=== PATIENT | female | born 1940 | race Caucasian/White ===

== ENCOUNTER → 2022-03-01 17:10 | Outpatient (BNVA) | payer MEDICARE, OTHER, SELFPAY | PROVIDERS: Visit Provider Emergency Medicine | DX: J02.9 Acute pharyngitis, unspecified (principal) | CPT/HCPCS: 87071; 87880 ==

== ENCOUNTER → 2023-05-02 09:37 | Outpatient (BNVA) | payer MEDICARE, OTHER, SELFPAY | PROVIDERS: PCP Family Medicine; Visit Provider Emergency Medicine | DX: R39.9 Unspecified symptoms and signs involving the genitourinary system (principal); N30.01 Acute cystitis with hematuria | CPT/HCPCS: 81000; 87077; 87086; 87184 ==

== ENCOUNTER 2024-10-15 17:24 | Emergency (ER) | payer MEDICARE, OTHER, SELFPAY ==
[2024-10-15 17:26] VITALS: BP 131/89; PULSE 77; RESP 18; TEMP 36.4; O2SAT 97; BMI 29.2
--- NOTE | 2024-10-15 17:27 | CTR_ITS ---
PROCEDURE INFORMATION: Exam: CT Maxillofacial Without Contrast Exam date and time: 10/15/2024 5:35 PM Age: 84 years old Clinical indication: Injury or trauma; Fall; Blunt trauma (contusions or hematomas); Orbit/periorbital; Right; Additional info: Trauamatic facial pain TECHNIQUE: Imaging protocol: Computed tomography of the face without contrast. Radiation optimization: All CT scans at this facility use at least one of these dose optimization techniques: automated exposure control; mA and/or kV adjustment per patient size (includes targeted exams where dose is matched to clinical indication); or iterative reconstruction. COMPARISON: CT head wo con* [id number] 10/15/2024 5:35 PM RADIATION DOSE METRICS: Total DLP (mGy-cm): 542.8 FINDINGS: Paranasal sinuses: No air-fluid levels. Orbital cavities: Orbits are normal. Globes are unremarkable. Bones: No acute fracture. Soft tissues: Right periorbital soft tissue swelling. There is a tiny amount of subcutaneous emphysema involving the right frontal scalp. CT/CT facial bones wo con* [id number] IMPRESSION: 1. Negative exam for facial fracture. 2. Right periorbital soft tissue swelling/laceration.
--- NOTE | 2024-10-15 17:27 | XRR_ITS ---
PROCEDURE INFORMATION: Exam: XR Right Hand Exam date and time: 10/15/2024 6:01 PM Age: 84 years old Clinical indication: Right; RT hand pain; Open wound to posterior RT elbow post fall; Large hematoma TECHNIQUE: Imaging protocol: Radiologic exam of the right hand. Views: 3 or more views. COMPARISON: CR XR elbow RT min 3V* [id number] 10/15/2024 6:01 PM FINDINGS: Bones/joints: Interphalangeal and 1st carpometacarpal degenerative changes are noted. No findings of fracture or dislocation. Soft tissues: Normal. XR/XR hand RT min 3V* [id number] IMPRESSION: No acute findings.
--- NOTE | 2024-10-15 17:27 | CTR_ITS ---
PROCEDURE INFORMATION: Exam: CT Cervical Spine Without Contrast Exam date and time: 10/15/2024 5:35 PM Age: 84 years old Clinical indication: Injury or trauma; Fall; Blunt trauma; Additional info: Fall, neck pain TECHNIQUE: Imaging protocol: Computed tomography of the cervical spine without contrast. Radiation optimization: All CT scans at this facility use at least one of these dose optimization techniques: automated exposure control; mA and/or kV adjustment per patient size (includes targeted exams where dose is matched to clinical indication); or iterative reconstruction. COMPARISON: CT facial bones wo con* [id number] 10/15/2024 5:35 PM RADIATION DOSE METRICS: Total DLP (mGy-cm): 172.2 FINDINGS: Bones: Negative exam for fracture and acute malalignment. There is mild anterolisthesis of C4 in respect to C5, C5 in respect to C6 and C6 in respect to C7 secondary to facet arthropathy. There is mild anterior and posterior vertebral body osteophyte formation involving the mid and lower lumbar spine. Diffuse facet arthropathy present. No severe neural foraminal or canal narrowing. Lungs: Lung apices are normal. Soft tissues: Unremarkable. CT/CT cervical spin wo con* [id number] IMPRESSION: No acute bony abnormality. Multilevel degenerative changes.
--- NOTE | 2024-10-15 17:27 | XRR_ITS ---
PROCEDURE INFORMATION: Exam: XR Right Knee Exam date and time: 10/15/2024 6:01 PM Age: 84 years old Clinical indication: Right; Prior surgery; Surgery date: 6+ months; Surgery type: RT total knee; RT knee pain post fall TECHNIQUE: Imaging protocol: Radiologic exam of the right knee. Views: 3 views. COMPARISON: No relevant prior studies available. 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 No acute bony findings. No evident joint effusion/capsular distention. Soft tissues: Unremarkable. XR/XR knee RT 3V* [id number] IMPRESSION: No acute findings.
--- NOTE | 2024-10-15 17:27 | CTR_ITS ---
PROCEDURE INFORMATION: Exam: CT Head Without Contrast Exam date and time: 10/15/2024 5:35 PM Age: 84 years old Clinical indication: Injury or trauma; Fall; Blunt trauma (contusions or hematomas); Additional info: Fall, head injury TECHNIQUE: Imaging protocol: Computed tomography of the head without contrast. Radiation optimization: All CT scans at this facility use at least one of these dose optimization techniques: automated exposure control; mA and/or kV adjustment per patient size (includes targeted exams where dose is matched to clinical indication); or iterative reconstruction. COMPARISON: CT facial bones wo con* [id number] 10/15/2024 5:35 PM RADIATION DOSE METRICS: Total DLP (mGy-cm): 1056 FINDINGS: Brain: Periventricular white matter changes likely related to chronic ischemic small vessel disease. No intracranial mass, hemorrhage or recent infarct. Brain atrophy present. Cerebral ventricles: No ventriculomegaly. Paranasal sinuses: Visualized sinuses are unremarkable. No fluid levels. Mastoid air cells: Visualized mastoid air cells are well aerated. Bones: Unremarkable. No acute fracture. Soft tissues: Right periorbital soft tissue swelling. CT/CT head wo con* [id number] IMPRESSION: 1. No acute intracranial abnormality. 2. Right periorbital soft tissue swelling.
--- NOTE | 2024-10-15 17:27 | XRR_ITS ---
PROCEDURE INFORMATION: Exam: XR Right Elbow Exam date and time: 10/15/2024 6:01 PM Age: 84 years old Clinical indication: Right; RT hand pain; Open wound to posterior RT elbow post fall; Large hematoma TECHNIQUE: Imaging protocol: Radiologic exam of the right elbow. Views: 3 or more views. COMPARISON: CR XR hand RT min 3V* [id number] 10/15/2024 6:01 PM FINDINGS: Bones/joints: Normal. Soft tissues: Soft tissue hematoma is suggested at lateral aspect of elbow. XR/XR elbow RT min 3V* [id number] IMPRESSION: No acute bony findings.
--- NOTE | 2024-10-15 17:32 | W.ED.HEATRA ---
HPI - Head Injury General: Chief complaint: Head Injury Stated complaint: right arm pain s/p fall Time Seen by Provider: 10/15/24 17:24 History of Present Illness: 84-year-old female with a history of atrial fibrillation, chronic anticoagulation on Xarelto and hyperlipidemia who presents the emergency room after having a fall. She tripped in a parking lot. She fell and struck the right side of her face. She has a large contusion on her right forehead. She has pain in her elbow with a large contusion on the lateral right elbow. She has pain in her right thumb. She has an abrasion there. Related Data Home Medications ?Medication ?Instructions ?Recorded ?Confirmed atorvastatin 10 mg tablet (Lipitor) 10 mg PO DAILY 03/01/22 05/02/23 cetirizine 10 mg capsule (Zyrtec) 10 mg PO DAILY PRN 03/01/22 05/02/23 rivaroxaban 15 mg tablet (Xarelto) 15 mg PO DAILY 03/01/22 05/02/23 Previous Rx's ?Medication ?Instructions ?Recorded nitrofurantoin macrocrystal 100 mg 100 mg PO BID 7 days #14 caps 05/02/23 capsule cephalexin 500 mg tablet 500 mg PO TID 7 days #21 tabs 10/15/24 hydrocodone 5 mg-acetaminophen 325 1 tab PO Q8H PRN pain #14 tabs 10/15/24 mg tablet Allergies Allergy/AdvReac Type Severity Reaction Status Date / Time No Known Allergies Allergy Verified 05/02/23 09:33 [facility] PFSH: Social History Smoking and tobacco/nicotine status: never used tobacco/nicotine Course Vital Signs: Vital signs: Vital Signs Temperature 97.6 F 10/15/24 17:26 Pulse Rate 72 10/15/24 20:19 Respiratory Rate 18 10/15/24 20:19 Blood Pressure 145/68 10/15/24 20:19 Pulse Oximetry 96 10/15/24 20:19 Oxygen Delivery Me thod Room Air 10/15/24 19:21 MDM - Head Injury Medcial Decision Making Medical decision making: Differential diagnosis including but not limited to and based on the above HPI, review of systems and physical exam: patient with fall and head injury. Subdural hematoma, subarachnoid hemorrhage, concussion, skull fracture. Orders placed to evaluate differential diagnosis based on the above differential, HPI and physical exam CT scan of the head was ordered. Differential diagnosis including but not limited to and based on the above HPI, review of systems and physical exam: In this patient with a musculoskeletal extremity traumatic injury and x-ray is being ordered to rule out fractures and dislocations. Orders placed to evaluate differential diagnosis based on the above differential, HPI and physical exam CT head: No acute intracranial process. no intracranial hemorrhage, no evidence of infarct. no evidence of acute fracture.This was reviewed and interpreted by myself the ER physician. CT of the cervical spine: No fracture. Good alignment. No step-offs. This was reviewed and interpreted by myself the emergency room physician. I also reviewed the radiologist report. X-ray of the right hand: No obvious acute fractures. Extensive degenerative changes. No dislocations. This was reviewed and interpreted by myself the emergency room physician. I also reviewed the radiology report. X-ray of the right elbow: No fracture. No dislocation. No fat pad. This was reviewed and interpreted by myself the emergency room physician. I also reviewed the radiology report. X-ray of the right knee: Arthroplasty in place. No obvious fractures or dislocations I reviewed the patient's medical record. Assessment and plan: Fall Head injury Elbow injury Skin tears Knee injury Finger injury Recurrent urinary tract infection ? Morphine, Zofran and Keflex in the emergency room - Discharged home - Discussed plan with patient. Answered any questions. - Evaluation and treatment of this problem were appropriate in the emergency setting. Lab Data Radiology Impressions Cervical Spine CT 10/15/24 17:27 IMPRESSION: No acute bony abnormality. Multilevel degenerative changes. Elbow X-Ray 10/15/24 17:27 IMPRESSION: No acute bony findings. Face CT 10/15/24 17:27 IMPRESSION: 1. Negative exam for facial fracture. 2. Right periorbital soft tissue swelling/laceration. Hand X-Ray 10/15/24 17:27 IMPRESSION: No acute findings. Head CT 10/15/24 17:27 IMPRESSION: 1. No acute intracranial abnormality. 2. Right periorbital soft tissue swelling. Knee X-Ray 10/15/24 17:27 IMPRESSION: No acute findings. Laboratory Results Urine Color Yellow (Yellow) 10/15/24 18:36 Urine Appearance Clear (CLEAR) 10/15/24 18:36 Urine pH 6.0 (5-7) 10/15/24 18:36 Ur Specific [place] 1.015 (1.005-1.030) 10/15/24 18:36 Urine Protein Negative (Negative) 10/15/24 18:36 Urine Glucose (UA) Negative (Normal) 10/15/24 18:36 Urine Ketones Negative (Negative) 10/15/24 18:36 Urine Blood Negative (Negative) 10/15/24 18:36 Urine Nitrate Negative (Negative) 10/15/24 18:36 Urine Bilirubin Negative (Negative) 10/15/24 18:36 Urine Urobilinogen 1.0 mg/dL (Negative) 10/15/24 18:36 Ur Leukocyte Esterase 1+ (Negative) A 10/15/24 18:36 Urine RBC 0-2 /hpf (0-2) 10/15/24 18:36 Urine WBC 6-10 /hpf (0-5) 10/15/24 18:36 Ur Squamous Epith Cells 6-10 /hpf (0-5) 10/15/24 18:36 Amorphous Sediment Not Reportable 10/15/24 18:36 Urine Bacteria 4+ /hpf (NONE) H 10/15/24 18:36 Hyaline Casts 1.21 /lpf 10/15/24 18:36 All radiology interpretation(s) finalized by discharge Discharge Plan Discharge Patient Disposition: Home Clinical Impression: Fall, Closed head injury, Traumatic hematoma of forehead, Skin tear of elbow without complication, Hematoma of elbow, Thumb injury, Chronic anticoagulation, Knee strain Condition: Stable Prescriptions: New hydrocodone-acetaminophen 5-325 mg tablet 1 tab PO Q8H PRN (Reason: pain) Qty: 14 0RF Rx Instructions: Take 1/2 to 1 tab every 8 hours as needed for pain cephalexin 500 mg tablet 500 mg PO TID 7 Days Qty: 21 0RF No Action Zyrtec 10 mg capsule 10 mg PO DAILY PRN Xarelto 15 mg tablet 15 mg PO DAILY Rx Instructions: must administer with evening meal atorvastatin [Lipitor] 10 mg tablet 10 mg PO DAILY nitrofurantoin macrocrystal 100 mg capsule 100 mg PO BID 7 Days Qty: 14 0RF Rx Instructions: must administer with a meal/food Discharge Orders: Discharge ED (Routine); Ordered 10/15/24 Ordered By: Shwetha Garcia Referrals: Kwaku Guerra [Primary Care Provider, Family Practice] Discharge Diet: Usual diet Discharge Activity: Increase activity as tolerated Patient Instructions: Fall Prevention for Older Adults (ED), Opioid Safety, Pain Management Activity Restrictions/Additional Instructions: Thank you for choosing [facility] for your healthcare needs today. You have been screened and evaluated and felt safe for discharge. Health conditions do change or evolve sometimes and as such it is important that you follow up with your Primary Doctor to be re checked, 3-5 days is a general good time frame for follow up. You are always welcome to return to the ED for re assessment if your symptoms are worsening or you have new concerns Print Language: Yakut Coding Level of Care Code ED Chief Controller Station for [facility]
[2024-10-15 19:20] LABS: Bilirubin Urine Negative (Negative); Blood Urine Negative (Negative); Glucose Urine UA Negative (Normal); Ketones Urine Negative (Negative); Leukocyte Esterase Urine 1+ (Negative); Nitrate Urine Negative (Negative); Protein Urine Negative (Negative); Specific Gravity, Urine 1.015 (1.005-1.030); Urine Appearance Clear (CLEAR); Urine Color Yellow (Yellow)
[2024-10-15 19:21] VITALS: BP 140/86; PULSE 69; RESP 18; O2SAT 96
[2024-10-15 19:23] LABS: Bacteria Urine 4+ /hpf; Hyaline Casts Urine 1.21 /lpf; RBC Urine 0-2 /hpf (0-2)
[2024-10-15 19:30] VITALS: RESP 18; O2SAT 96
[2024-10-15] MEDS: ondansetron 2 mg/ML SDV 2 mL 4 MG IVP (19:30)
[2024-10-15] MEDS: morphine 4 mg/mL SDV 1 mL IVP (19:30)
[2024-10-15] MEDS: tetanus-dipt-pertussis 0.5 mL SDV IM (19:31)
[2024-10-15] MEDS: cephALEXin 500 mg Capsule PO (20:07)
[2024-10-15 20:19] VITALS: BP 145/68; PULSE 72; RESP 18; O2SAT 96
== END 2024-10-15 20:21 | disposition home or self-care (01) ==
PROVIDERS: Emergency Provider Emergency Medicine; PCP Family Medicine
DX: S09.8XXA Other specified injuries of head, initial encounter (principal); S00.83XA Contusion of other part of head, initial encounter; S50.01XA Contusion of right elbow, initial encounter; S69.91XA Unspecified injury of right wrist, hand and finger(s), initial encounter; Z79.01 Long term (current) use of anticoagulants; S83.91XA Sprain of unspecified site of right knee, initial encounter; S51.011A Laceration without foreign body of right elbow, initial encounter; W01.0XXA Fall on same level from slipping, tripping and stumbling without subsequent striking against object, initial encounter
CPT/HCPCS: 70450; 70486; 72125; 73080; 73130; 73562; 81001; 90471; 90715; 96374; 96375; 99285; J2270; J2405; J9999

== ENCOUNTER 2025-04-14 00:30 | Emergency (ER) | payer MEDICARE, OTHER, SELFPAY ==
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
[2025-04-14 00:33] VITALS: BP 123/65; PULSE 98; RESP 16; TEMP 36.4; O2SAT 95; BMI 31.4
--- OUTSIDE RECORDS SUMMARY | 2025-04-14 00:38 | XMS_ITS | Encounter Summary ---
Author Organization [facility] Address [address] [place] [address] Care Team Providers Care Salesperson Men'S Furnishings Name Role Phone Kwaku Guerra MD Primary Care Provider [phone] Encounter Details Date Type Department Care Team (Latest Contact Info) Description 09/03/2004 Outpatient Historical [facility] Medicine [place] [address] [place] [phone] Harriet Amado MD [address] [place] [phone] ARTHROPATHY NOS-UNSPEC (Primary Dx); Other lymphedema Social History Tobacco Use Types Packs/Day Years Used Date Smoking Tobacco: Never Assessed Comments Unknown Sex and Gender Information Value Date Recorded Sex Assigned at Not on file Legal Sex Female 5:00 AM SEWING DEMONSTRATOR Gender Identity Not on file Sexual Orientation Not on file documented as of this encounter Plan of Treatment Not on file documented as of this encounter Visit Diagnoses Diagnosis Arthropathy, unspecified, site unspecified- Primary Other lymphedema Other noninfectious lymphedema documented in this encounter Care Teams Salesperson Men'S Furnishings Relationship Specialty Start Date End Date Kwaku Guerra MD [address] [place] [phone] PCP - General Family Practice 11/16/14 documented as of this encounter
--- OUTSIDE RECORDS SUMMARY | 2025-04-14 00:38 | XMS_ITS | Encounter Summary ---
Author Organization [facility] Address [address] [place] [address] Care Team Providers Care Barrel Drainer Name Role Phone Kwaku Guerra MD Primary Care Provider [phone] Encounter Details Date Type Department Care Team (Latest Contact Info) Description 04/12/2008 Outpatient Historical [facility] End[facility] [place] [address] [place] [address] Rm Jean-Baptiste MD NO ADDRESS ON FILE Diverticulitis of Colon (without Mention of Hemorrhage); Abdominal Pain, Unspecified Site; Other Symptoms Involving Digestive System; Unspecified Asthma; Cervical Spondylosis without Myelopathy; Benign Neoplasm of Colon; Personal History of Allergy to Analgesic Agent Social History Tobacco Use Types Packs/Day Years Used Date Smoking Tobacco: Never Assessed Comments No Sex and Gender Information Value Date Recorded Sex Assigned at Not on file Legal Sex Female 5:00 AM TIMING INSPECTOR Gender Identity Not on file Sexual Orientation Not on file documented as of this encounter Plan of Treatment Not on file documented as of this encounter Procedures Procedure Name Priority Date/Time Associated Diagnosis Comments PATHOLOGY Routine 05/08/2008 2:35 PM TIMING INSPECTOR documented in this encounter Results * PATHOLOGY (05/08/2008 2:35 PM TIMING INSPECTOR) PATHOLOGY/CYT OLOGY REPORT [facility] Anatomic Pathology Dept [address] [facility] [address] Patient: LORI RUIZ Accn No: [id number] Collected: 05/08/2008 2:35:00 PM SURGICAL PATHOLOGY FINAL REPORT Diagnosis A. Colon, cecum polyp, biopsy - adenomatous polyp. / B. Colon, ileocecal valve polyp, biopsy - adenomatous polyp. Dillan Marks MD (Electronicall y signed by) Verified: 05/09/08 PKT/CEP Clinical Information Polyps. Specimen Source AColon, CECUM BColon, ILEOCECAL VALVE Microscopic Description Microscopic examination was performed. Gross Description Part A. Submitted in a container of formalin labelled Brad - #1 colon polyp, cecum is a donald strip of soft tissue measuring 0.8 x 0.2 x 0.1 cm. The specimen is submitted entirely in A1. Part B. Submitted in a container of formalin labelled Brad - #2 colon polyp, ileocecal valve is a donald soft tissue fragment measuring 0.4 x 0.3 x 0.1 cm. The specimen is submitted entirely in B1. DLS/WLS INTERFACE SYSTEM 05/08/2008 2:35 PM TIMING INSPECTOR us Rm Jean-Baptiste MD PATHOLOGY/CYTOLOGY ORDERABL ES Final Result INTERFACE SYSTEM Refer to clinic/hospital department documented in this encounter Visit Diagnoses Diagnosis Diverticulitis of colon (without mention of hemorrhage)(562.11) Diverticulitis of colon (without mention of hemorrhage) Abdominal pain, unspecified site Other symptoms involving digestive system(787.99) Other symptoms involving digestive system Unspecified asthma(493.90) Unspecified asthma Cervical spondylosis without myelopathy Benign neoplasm of colon Personal history of allergy to analgesic agent documented in this encounter Care Teams Barrel Drainer Relationship Specialty Start Date End Date Kwaku Guerra MD [address], [place] [phone] PCP - General Family Practice 11/16/14 documented as of this encounter
--- OUTSIDE RECORDS SUMMARY | 2025-04-14 00:38 | XMS_ITS | Encounter Summary ---
Author Organization [facility] Address [address] [place] [address] Care Team Providers Care Membership Sales Representative Name Role Phone Kwaku Guerra MD Primary Care Provider [phone] Encounter Details Date Type Department Care Team (Late st Contact Info) Description 03/09/2008 Emergency [facility] Emergency Department [address] [place] [address] Ed, Physician NO ADDRESS ON FILE Mustapha Bills MD [address] [address] Social History Tobacco Use Types Packs/Day Years Used Date Smoking Tobacco: Never Assessed Comments No Sex and Gender Information Value Date Recorded Sex Assigned at Not on file Legal Sex Female 5:00 AM MEDICAL ADMINISTRATOR Gender Identity Not on file Sexual Orientation Not on file documented as of this encounter Plan of Treatment Not on file documented as of this encounter Procedures Procedure Name Priority Date/Time Associated Diagnosis Comments CT URINARY CALCULI WO CONTRAST Routine 03/09/2008 4:20 PM MEDICAL ADMINISTRATOR URINALYSIS MICROSCOPY ONLY Stat 03/09/2008 3:39 PM MEDICAL ADMINISTRATOR CBC WITH DIFFERENTIAL Stat 03/09/2008 3:39 PM MEDICAL ADMINISTRATOR URINALYSIS W/REFLEX MICROSCOPIC Stat 03/09/2008 3:39 PM MEDICAL ADMINISTRATOR LIPASE Stat 03/09/2008 3:39 PM MEDICAL ADMINISTRATOR AMYLASE Stat 03/09/2008 3:39 PM MEDICAL ADMINISTRATOR COMPREHENSIVE METABOLIC PANEL Stat 03/09/2008 3:39 PM MEDICAL ADMINISTRATOR documented in this encounter Results * CT RENAL COLIC WO CONT (03/09/2008 4:20 PM MEDICAL ADMINISTRATOR) Anatomical Region Laterality Modality Abdomen Other 03/09/2008 4:20 PM MEDICAL ADMINISTRATOR Narrative 03/12/2008 4:35 PM MEDICAL ADMINISTRATOR Exam: CT Renal Colic Date/Time of Exam: Mar 09, 2008 4:20:27 PM History: Kidney stone. Back and abdomen pain. Technique: Examination consists of a noncontrast helical CT scan of the kidneys, ureters and bladder performed on a [employer] Identitypeed [address] scanner. No IV contrast was used consistent with CT renal colic protocol. Comparison: None. Findings: Left and right kidneys, left and right ureters and urinary bladder are unremarkable in appearance without evidence for hydronephrosis, hydroureter or suspicious urinary calcifications. Visualized small and large intestines appear within normal limits. The appendix is unremarkable in appearance in the right lower quadrant. Uterus is unremarkable. Adnexal regions appear within normal limits. Small periumbilical fat containing hernia is noted. No adnexal masses are seen. Visualized portions of the liver, pancreas and spleen appear within normal limits. Patient is status post cholecystectomy with surgical clips in the gallbladder fossa. Left and right adrenal glands are unremarkable. Severe degenerative changes of the thoracic spine are noted at T11/T12 disc level. The appearance may be posttraumatic. No suspicious masses, fluid collections or lymphadenopathy is identified. No free intraperitoneal air is noted. Impressions: 1. Unremarkable CT renal colic without evidence for hydronephrosis, hydroureter or suspicious urinary calcifications. 2. Status post cholecystectomy. 3. Severe degenerative changes at T11/T12 disc level. 4. Tiny paraumbilical fat containing hernia. - Dictated By: Thierno Patel M.D., Ph.D. Electronically Signed By: Thierno Patel M.D., Ph.D. Date Signed: 03/12/08 Procedure Note Thierno Patel - 03/12/2008 Exam: CT Renal Colic Date/Time of Exam: Mar 09, 2008 4:20:27 PM History: Kidney stone. Back and abdomen pain. Technique: Examination consists of a noncontrast helical CT scan of thekidneys, ureters and bladder performed on a GE LightSpeed [address] scanner. No IV contrast wasused consistent with CT renal colic protocol. Comparison: None. Findings: Left and right kidneys, left and right ureters and urinarybladder are unremarkable in appearance without evidence for hydronephrosis, hydroureter or suspiciousurinary calcifications. Visualized small and large intestines appear within normal limits. Theappendix is unremarkable in appearance in the right lower quadrant. Uterus is unremarkable. Adnexalregions appear within normal limits. Small periumbilical fat containing hernia is noted. No adnexalmasses are seen. Visualized portions of the liver, pancreas and spleen appear within normal limits.Patient is status post cholecystectomy with surgical clips in the gallbladder fossa. Left andright adrenal glands are unremarkable. Severe degenerative changes of the thoracic spine are notedat T11/T12 disc level. The appearance may be posttraumatic. No suspicious masses, fluid collectionsor lymphadenopathy is identified. No free intraperitoneal air is noted. Impressions: 1. Unremarkable CT renal colic without evidence for hydronephrosis,hydroureter or suspicious urinary calcifications. 2. Status post cholecystectomy. 3. Severe degenerative changes at T11/T12 disc level. 4. Tiny paraumbilical fat containing hernia. - Dictated By: Thierno Patel M.D., Ph.D. Electronically Signed By: Thierno Patel M.D., Ph.D. Date Signed: 03/12/08 us Miguel Cazares MD CT ORDERABLES Final Resu lt * (ABNORMAL) CBC WITH DIFFERENTIAL (03/09/2008 3:39 PM MEDICAL ADMINISTRATOR) HEMATOCRIT 45.9 36.0 - 46.0 % [facility] EOSINOPHILS 2.5 0.0 - 7.0 % [facility] PLATELETS 264 140 - 440 K/ul [facility] EOSINOPHIL ABSOLUTE 0.2 0.0 - 0.7 K/ul [facility] RBC 4.95 4.20 - 5.40 Mil/ul [facility] LYMPHOCYTES 32.3 24.0 - 44.0 % [facility] MCHC 35.1(H) 30.0 - 35.0 g/dL [facility] LYMPHOCYTE ABSOLUTE 2.1 1.2 - 4.0 K/ul [facility] MCV 92.7 84.0 - 103.0 Fl [facility] MPV 10.8 8.9 - 12.8 Fl [facility] BASOPHILS ABSOLUTE 0.0 0.0 - 0.2 K/ul [facility] BASOPHILS 0.6 0.0 - 1.0 % [facility] HEMOGLOBIN 16.1(H) 12.0 - 16.0 g/dL [facility] RDW 12.5 11.0 - 14.5 % [facility] MONOCYTE ABSOLUTE 0.4 0.1 - 0.6 K/ul [facility] MONOCYTES 6.4 2.0 - 10.0 % [facility] WBC 6.4 4.8 - 10.8 K/ul [facility] MCH 32.5 27.0 - 34.0 pg [facility] NEUTROPHIL ABSOLUTE 3.7 2.0 - 8.0 K/ul [facility] NEUTROPHILS 58.2 42.2 - 75.2 % [facility] Blood specimen (specimen) 03/09/2008 3:39 PM MEDICAL ADMINISTRATOR 03/09/2008 3:42 PM MEDICAL ADMINISTRATOR us Miguel Cazares MD HEMATOLOGY ORDERABLES Irene nate Result INTERFACE SYSTEM Refer to clinic/hospital department [facility] CLIA# [id number] [address] [place] [address] * LIPASE (03/09/2008 3:39 PM MEDICAL ADMINISTRATOR) LIPASE 27 6 - 51 U/L [facility] Blood specimen (specimen) 03/09/2008 3:39 PM MEDICAL ADMINISTRATOR 03/09/2008 3:42 PM MEDICAL ADMINISTRATOR Miguel Cazares MD CHEMISTRY ORDERABLES Final Result Performing Organization Address [facility] Phone Number INTERFACE SYSTEM Refer to clinic/hospital department [facility] CLIA# [id number] [address] [place] [address] * AMYLASE (03/09/2008 3:39 PM MEDICAL ADMINISTRATOR) Pathologist [facility] AMYLASE 34 20 - 104 U/L [facility] Blood specimen (specimen) 03/09/2008 3:39 PM MEDICAL ADMINISTRATOR 03/09/2008 3:42 PM MEDICAL ADMINISTRATOR Miguel Cazares MD CHEMISTRY ORDERABLES Final Result Performing Organization Address [facility] Phone Number INTERFACE SYSTEM Refer to clinic/hospital department [facility] CLIA# [id number] [address] [place] [address] * (ABNORMAL) COMPREHENSIVE METABOLIC PANEL (03/09/2008 3:39 PM MEDICAL ADMINISTRATOR) [facility] POTASSIUM 4.3 3.5 - 5.0 mEq/L [facility] GLOBULIN (CALC) 2.7 2.4 - 3.9 g/dL [facility] ALBUMIN 4.6 3.5 - 5.0 g/dL [facility] CREATININE 0.7 0.7 - 1.2 mg/dL [facility] ALT 21 4 - 36 IU/L [facility] CALCIUM 10.0 8.4 - 10.5 mg/dL [facility] OSMOLALITY, CALCULATED 291 275 - 295 mOsm/Kg [facility] GLUCOSE 114(H) 70 - 110 mg/dL [facility] ALKALINE PHOSPHATASE 82 25 - 100 U/L [facility] CHLORIDE 104 95 - 110 mEq/L [facility] ALBUMIN/GLOBULIN RATIO 1.7 1.0 - 2.3 [facility] TOTAL PROTEIN 7.3 6.3 - 8.2 g/dL [facility] SODIUM 140 136 - 145 mEq/L [facility] BILIRUBIN TOTAL 0.9 0.3 - 1.2 mg/dL [facility] BUN 17 7 - 17 mg/dL [facility] CO2 29 22 - 32 mmol/l [facility] ANION GAP 11 9 - 20 mEq/L [facility] AST 24 8 - 33 U/L [facility] Blood specimen (specimen) 03/09/2008 3:39 PM MEDICAL ADMINISTRATOR 03/09/2008 3:42 PM MEDICAL ADMINISTRATOR us Miguel Cazares MD CHEMISTRY ORDERABLES Final Result INTERFACE SYSTEM Refer to clinic/hospital department [facility] CLIA# [id number] [address] [place] [phone] * (ABNORMAL) URINALYSIS (03/09/2008 3:39 PM MEDICAL ADMINISTRATOR) CLARITY UA Clear Clear [facility] SPECIFIC GRAVITY UA >=1.030(A) <=1.005 [facility] GLUCOSE UA 250 mg/dl(A) NEGATIVE [facility] PH UA 5.0 5.0 - 9.0 [facility] BILIRUBIN UA NEGATIVE NEGATIVE [facility] LEUKOCYTE ESTERASE UA NEGATIVE NEGATIVE [facility] KETONES UA 15 mg/dl(A) NEGATIVE [facility] MICRO EXAM Yes(A) No [facility] COLOR UA Claribel(A) Straw [facility] PROTEIN UA 100 mg/dl(A) NEGATIVE [facility] BLOOD UA NEGATIVE NEGATIVE [facility] NITRITE UA POSITIVE(A) NEGATIVE [facility] UROBILINOGEN UA >=8.0(A) 0.2 [facility] Urine specimen (specimen) 03/09/2008 3:39 PM MEDICAL ADMINISTRATOR 03/09/2008 3:42 PM MEDICAL ADMINISTRATOR Miguel Cazares MD URINE ORDERABLES Final Res ult Performing Organization Address [facility] Phone Number INTERFACE SYSTEM Refer to clinic/hospital department [facility] CLIA# [id number] [address] [place] [address] * (ABNORMAL) URINALYSIS MICROSCOPY ONLY (03/09/2008 3:39 PM MEDICAL ADMINISTRATOR) RBC UA None Seen 0 - 2 [facility] MICRO COMMENT Highly pigmented urine may affect the readability of the test pads on urinalysis reagent strips. [facility] HYALINE CAST None Seen 0 - 2 [facility] WBC URINE 0-2 0 - 2 [facility] BACTERIA UA Few(A) None Seen [facility] Urine specimen (specimen) 03/09/2008 3:39 PM MEDICAL ADMINISTRATOR 03/09/2008 3:42 PM MEDICAL ADMINISTRATOR Miguel Cazares MD URINE ORDERABLES Final Res ult Performing Organization Address [facility] Phone Number INTERFACE SYSTEM Refer to clinic/hospital department [facility] CLIA# [id number] [facility] [place] [address] documented in this encounter Visit Diagnoses Not on filedocumented in this encounter Care Teams Membership Sales Representative Relationship Specialty Start Date End Date Kwaku Guerra MD [address] [place] [address] PCP - General Family Practice 11/16/14 documented as of this encounter
--- OUTSIDE RECORDS SUMMARY | 2025-04-14 00:38 | XMS_ITS | Clinical Summary ---
Author Organization [facility] Address [address] [place] [address] Care Team Providers Care Jack Setter Name Role Phone Kwaku Guerar MD Primary Care Provider [phone] Allergies Active Allergy Reactions Criticality Noted Date Comments Meperidine Itching Low 03/08/2008 Phenobarbital Itching Low 03/08/2008 Simvastatin Muscle Pain Low 03/08/2008 Solifenacin Itching Medium 03/04/2009 Tramadol Nausea and Vomiting High 10/24/2011 Medications inhalational spacing device Spacer Use with inhaler.. 1 Device 0 6 Active MAGNESIUM ORAL Take by mouth. Active albuterol HFA 90 mcg inhalerIndication s:Mild intermittent asthma without complication Take 2 Puffs by inhalation every 4 hours as needed for Shortness of Breath or Wheezing. 8.5 Gram 1 0 Active rosuvastatin (CRESTOR) 20 mg tablet Take 1 Tablet (20 mg) by mouth daily at bedtime. 90 Tablet 1 0 Active rivaroxaban (Xarelto) 20 mg Tablet TAKE 1 TABLET DAILY 90 Tablet 3 0 Active cetirizine (ZyrTEC) 10 mg tablet TAKE 1 TABLET DAILY 90 Tablet 3 0 Active Synthroid 100 mcg tablet TAKE 1 TABLET DAILY (CHANGE IN DOSE) 90 Tablet 1 1 Active celecoxib (CeleBREX) 200 mg capsule TAKE 1 CAPSULE TWICE A DAY 180 Capsule 1 1 Active potassium chloride (Klor-Con M10) 10 mEq Extended Release tablet TAKE 1 TABLET DAILY 90 Tablet 1 1 Active Myrbetriq 50 mg Extended Release 24 hour tabletIndications :Overactive bladder Take 1 Tablet (50 mg) by mouth daily. 90 Tablet 1 1 Active furosemide (LASIX) 20 mg tablet Take 1 Tablet (20 mg) by mouth 1 time daily as needed (increased swelling or sob.). 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 14% of the time less than or equal to 88% saturation Essential hypertension 04/06/2015 History of pulmonary embolism 04/06/2015 Cystocele 01/13/2012 Personal history of DVT (deep vein thrombosis) 0 10/04/2011 Peripheral edema 10/02/2011 Venous stasis 01/28/2011 Lumbar spinal stenosis 05/15/2010 Facet syndrome 05/15/2010 Lumbosacral spondylosis without myelopathy 05/15 Overactive bladder 02/11/2009 Acquired hypothyroidism 05/21/2008 Environmental allergies 05/21/2008 Mild intermittent asthma 05/21/2008 Arthritis 05/21/2008 Hyperlipidemia 05/21/2008 Resolved Problems Problem Noted Date Diagnosed Date Resolved Date Personal history of DVT (abdias p vein thrombosis) 02/25/2017 02/25/2017 Toenail fungus 10/10/2015 11/07/2017 Acute pulmonary embolism 10/02/201108/2014 Elevated blood pressure 10/02/2011 07/0 11/2017 Hyperkalemia 10/02/2011 11/07/2017 Cystocele, midline 07/17/2010 1 Rectocele 07/17/2010 07/18/2010 Uterine prolapse without men tion of vaginal wall prolapse 06/27/2010 07/18/2010 LBP (low back pain) 05/15/2010 11/08/19 18 Right hip pain 03/04/2009 11/07/2017 Overview (03/04/2009): Most consistent with trochanteric bursitis Constipation 05/21/2008 10/29/2010 Obesity 05/21/2008 11/07/2017 Immunizations Immunization Administration Dates Next Due (PFIZER)(12 YR UP) COVID-19 VACCINE - EMERGENCY USE AUTHORIZATION, MRNA, [id number](PF) 30 MCG/0.3 ML IM SUSP 07/23/2020,07/02/2020 (PNEUMOVAX 23)(50 YRS UP) PN EUMOCOCCAL POLYSACCHARIDE (PPV23) 0.5 ML, IM 03/09/2019,03/22/2013,10/27/2005 INFLUENZA VACCINE HIGH DOSE QUADRIVALENT 65 YR UP PF IM 02/22/2020 Influenza Seasonal Unspecifi ed Formulation IM 03/18/2018,02/10/2013,01/29/2010,04/06,03/03/2005,02/23/2004 Influenza Vaccine High Dose 65+ Yrs IM 9,03/12/2015 Influenza Vaccine Quad Split 3+ Yrs Im 7,04/12/2014 Influenza Vaccine Split 3+ Yrs IM 2012,02/12/2012,02/05/2011,04/11 Influenza Vaccine Split 3+ Yrs PF IM 02/12/2016 Family History Medical History Relation Name Comments Breast Cancer Daughter Colon Cancer Neg Hx Ovarian Cancer Neg Hx Relation Name Status Comments Daughter Father Mother Social History Tobacco Use Types Packs/Day Years Used Date Smoking Tobacco: Never Smokeless Tobacco: Never Tobacco Cessation:Counseling Given: No Alcohol Use Standard Drinks/Week Comments No 0 (1 standard drink = 0.6 oz pur e alcohol) Comments No Sex and Gender Information Value Date Recorded Sex Assigned at Not on file Legal Sex Female 5:00 AM TRUST ADVISOR Gender Identity Not on file Sexual Orientation Not on file Occupation Industry Job Start Date Job End Date Not on file Not on file Not on file Not on file Last Filed Vital Signs Vital Sign Reading Time Taken Comments Blood Pressure 144/70 09/13/2020 11:06 AM CDT Pulse 90 09/13/2020 11:06 AM CDT Temperature 36.2 C (97.1 F) 09/13/2020 11:06 AM CDT Respiratory Rate 16 09/13/2020 11:0 6 AM CDT Oxygen Saturation 97% 09/13/2020 11: 06 AM CDT Inhaled Oxygen Concentration - - Weight 108.1 kg (238 lb 6.4 oz) 021 11:06 AM CDT Height 172.7 cm (5' 8 ) 09/13/2020 11:0 6 AM CDT Body Mass Index 36.25 09/13/2020 11:06 AM CDT Plan of Treatment Health Maintenance Due Date Last Done Comments DTAP/TDAP/TD VACCINES (1 - Tdap) 1957 ZOSTER VACCINE (1 of 2) 1988 OSTEOPOROSIS SCREENING 08/05/2003 RSV VACCINE (60+ or ) (1 - 1-dose 75+ series) 2013 COLORECTAL SCREENING 03/18/2019 03/18/2016, 03/18/2016, 05/29/2010, Additional history exists Traditional Medicare (ACO) A nnual Wellness Visit 03/10/2020 03/09/2019, 01/15/2018, 12/02/2016 INFLUENZA VACCINE (#1) 2024 , 03/09/2019, 03/18/2018, Additional history exists COVID-19 Vaccine (3 - 2024-2 6 season) 2025 07/23/2020, 07/02/2020 PNEUMOCOCCAL VACCINE 50+ YEARS Completed 1 05/09/2018, 04/18/2015, 03/22/2013, Additional history exists Medical Devices Implanted Type Area Corner Former Device Identifier Shelf Expiration Date Model / Serial / Lot Sling Transvag Adv Fit Sgl 850-211 - [id number] Implanted:Qty: 1 on 04/21/2012 by Beronica Clark MD at [facility] Sling N/A: Vagina 02/01/2015 850-211 / / [id number] Procedures Procedure Name Priority Date/Time Associated Diagnosis Comments ENDOSCOPY, COLON, SCREENING Routine 03/18/2016 2:23 PM TRUST ADVISOR History of colon polyps from Last 3 Months or Most Recently Relevant to Health Maintenance Results * ENDOSCOPY, COLON, MEDICARE SCREENING (05/08/2008) Rm Jean-Baptiste MD GI PROCEDURE ORDERABLES Fin al Result from Last 3 Months or Most Recently Relevant to Health Maintenance Insurance MEDICARE PART A AND B [employer] Advance Directives For more information, please contact: [phone] * Full Code (Latest Code Status on File) Date Activated Date Inactivated Comments 03/18/2016 3:33 PM 03/18/2016 6:15 PM * Full Code Date Activated Date Inactivated Comments 03/18/2016 2:23 PM 03/18/2016 3:33 PM * Full Code Date Activated Date Inactivated Comments 07/21/2013 9:27 AM 07/21/2013 4:52 PM * Full Code Date Activated Date Inactivated Comments 04/21/2012 6:59 PM 04/22/2012 2:25 PM * Full Code Date Activated Date Inactivated Comments 04/21/2012 12:15 PM 04/21/2012 6:59 PM Care Teams Jack Setter Relationship Specialty Start Date End Date Kwaku Guerra MD [address] [place] [phone] PCP - General Family Practice 11/16/14
--- OUTSIDE RECORDS SUMMARY | 2025-04-14 00:38 | XMS_ITS | Encounter Summary ---
Author Organization [facility] Address [address] [place] [address] Care Team Providers Care Ingot Supervisor Name Role Phone Kwaku Guerra MD Primary Care Provider [phone] Encounter Details Date Type Department Care Team (Late st Contact Info) Description 05/19/2007 Outpatient Historical [facility] Medicine [place] [address] [place] [address] [phone] Stephania Gray, [facility] [address] [place] [address] [phone] Social History Tobacco Use Types Packs/Day Years Used Date Smoking Tobacco: Never Assessed Comments Unknown Sex and Gender Information Value Date Recorded Sex Assigned at Not on file Legal Sex Female 5:00 AM TROUSSEAU CONSULTANT Gender Identity Not on file Sexual Orientation Not on file documented as of this encounter Plan of Treatment Not on file documented as of this encounter Visit Diagnoses Not on filedocumented in this encounter Care Teams Ingot Supervisor Relationship Specialty Start Date End Date Kwaku Guerra MD [address] [place] [phone] PCP - General Family Practice 11/16/14 documented as of this encounter
--- OUTSIDE RECORDS SUMMARY | 2025-04-14 00:38 | XMS_ITS | Encounter Summary ---
Author Organization [facility] Address [address] [place] [address] Care Team Providers Care Cna Pct Name Role Phone Kwaku Guerra MD Primary Care Provider [phone] Encounter Details Date Type Department Care Team (Latest Contact Info) Description 06/21/2004 Outpatient [facility] Steven [address] [place] [address] Octavio Samuels, DPM NO ADDRESS ON FILE LOCAL SKIN INFECTION NOS (Primary Dx); INGROWING NAIL Social History Tobacco Use Types Packs/Day Years Used Date Smoking Tobacco: Never Assessed Comments Unknown Sex and Gender Information Value Date Recorded Sex Assigned at Not on file Legal Sex Female 5:00 AM GLAZING SUPERINTENDENT Gender Identity Not on file Sexual Orientation Not on file documented as of this encounter Plan of Treatment Not on file documented as of this encounter Visit Diagnoses Diagnosis Unspecified local infection of skin and subcutaneous tissue- Primary Ingrowing nail documented in this encounter Care Teams Cna Pct Relationship Specialty Start Date End Date Kwaku Guerra MD [address] [place] [address] PCP - General Family Practice 11/16/14 documented as of this encounter
--- OUTSIDE RECORDS SUMMARY | 2025-04-14 00:39 | XMS_ITS | Encounter Summary ---
Author Organization [facility] Address [address] [place] [address] Care Team Providers Care Wood Stainer Name Role Phone Kwaku Guerra MD Primary Care Provider Encounter Details Date Type Department Care Team (Latest Contact Info) Description 02/23/2004 Outpatient Historical [facility] [place] [address] [place] [phone] Harriet Amado MD [address] [place] [phone] CONTUSION OF BREAST (Primary Dx); HYPERLIPIDEMIA NEC/NOS; ALLERGY, UNSPECIFIED; OSTEOPOROSIS NOS; Vaccine for influenza Social History Tobacco Use Types Packs/Day Years Used Date Smoking Tobacco: Never Assessed Comments Unknown Sex and Gender Information Value Date Recorded Sex Assigned at Not on file Legal Sex Female 5:00 AM RN COMPLIANCE Gender Identity Not on file Sexual Orientation Not on file documented as of this encounter Plan of Treatment Not on file documented as of this encounter Visit Diagnoses Diagnosis Contusion of breast- Primary Other and unspecified hyperlipidemia Allergy, unspecified not elsewhere classified Osteoporosis, unspecified Vaccine for influenza Need for prophylactic vaccination and inoculation against influenza documented in this encounter Care Teams Wood Stainer Relationship Specialty Start Date End Date Kwaku Guerra MD [address] [phone] PCP - General Family Practice 11/16/14 documented as of this encounter
--- OUTSIDE RECORDS SUMMARY | 2025-04-14 00:39 | XMS_ITS | Encounter Summary ---
Author Organization [facility] Address [address] [place] [address] Care Team Providers Care Air Defense Artillery Senior Sergeant Name Role Phone Aroldo Guerra Primary Care Provider Encounter Details Date Type Department Care Team (Late Contact Info) Description 03/17/2025 Results Follow-Up [address] [phone] Stephania Gray, [facility] [address] [phone] POC URINALYSIS DIPSTICK AUTOMATED, URINE CULTURE Social History Tobacco Use Types Packs/Day Years Used Date Smoking Tobacco: Never Passive Smoke Exposure: Never Smokeless Tobacco: Never Alcohol Use Standard Drinks/Week Comments No 0 (1 standard drink = 0.6 oz pur e alcohol) Comments No Sex and Gender Information Value Date Recorded Sex Assigned at Female 02/22/2024 5:48 PM CDT Legal Sex Female 4:07 PM HEAD USHER Gender Identity Not on file Sexual Orientation Not on file documented as of this encounter Plan of Treatment Upcoming Encounters Date Type Department Care Team (Late Contact Info) Description 04/20/2025 3:10 PM HEAD USHER Office Visit [address] [phone] Stephania Gray, M[facility] [address] [place] [phone] 09/20/2025 2:30 PM CDT Telephone Check Up [facility] Urology [place] [address] [place] [address] Keisha Henao PA [address] [place] [address] 11/21/2025 10:20 AM CDT Office Visit [facility] [address] [facility] [address] [place] [phone] Chester Hicks MD [address] [facility] [address] [place] [phone] Madisyn Koch FNP [address] [facility] [address] [place] [phone] documented as of this encounter Visit Diagnoses Not on filedocumented in this encounter Additional Health Concerns Infection Onset Date Last Indicated Resolved Time PUBLIC HEALTH STAFF NURSE 09/04/2022 09/09/2022 documented as of this encounter Care Teams Air Defense Artillery Senior Sergeant Relationship Specialty Start Date End Date Aroldo Guerra DO [address] [place] [phone] PCP - General Family Practice 12/09/23 documented as of this encounter
--- OUTSIDE RECORDS SUMMARY | 2025-04-14 00:39 | XMS_ITS | Encounter Summary ---
Author Organization [facility] Address [address] [place] [address] Care Team Providers Care Truck Greaser Name Role Phone Kwaku Guerra MD Primary Care Provider [phone] Encounter Details Date Type Department Care Team (Latest Contact Info) Description 03/06/2006 Outpatient Historical [facility] Orthopedics- 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
--- OUTSIDE RECORDS SUMMARY | 2025-04-14 00:39 | XMS_ITS | Encounter Summary ---
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)(Female); Pure Hypercholesterolem Social History Tobacco Use Types Packs/Day Years Used Date Smoking Tobacco: Never Assessed Comments Unknown Sex and Gender Information Value Date Recorded Sex Assigned at Not on file Legal Sex Female 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
--- OUTSIDE RECORDS SUMMARY | 2025-04-14 00:39 | XMS_ITS | Encounter Summary ---
Author Organization [facility] Address [address] [place] [address] Care Team Providers Care Dry Cleaner Hand Name Role Phone Kwaku Guerra MD Primary Care Provider [phone] Encounter Details Date Type Department Care Team (Latest Contact Info) Description 06/14/2004 Outpatient Historical [facility] [address] [facility] [address] [place] [address] Octavio Samuels, DPM NO ADDRESS ON FILE SWELLING OF LIMB (Primary Dx) Social History Tobacco Use Types Packs/Day Years Used Date Smoking Tobacco: Never Assessed Comments Unknown Sex and Gender Information Value Date Recorded Sex Assigned at Not on file Legal Sex Female 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
--- OUTSIDE RECORDS SUMMARY | 2025-04-14 00:39 | XMS_ITS | Encounter Summary ---
Author Organization [facility] Address [address] [place] [address] Care Team Providers Care Technical Training Instructor Name Role Phone Kwaku Guerra MD Primary Care Provider [phone] Encounter Details Date Type Department Care Team (Latest Contact Info) Description 11/20/2003 Outpatient Historical [facility] Medicine [place] [address] [place] [phone] Harriet Amado MD [address] [place] [address] CELLULITIS OF LEG (Primary Dx); OSTEOARTHROS NOS-OTHER SITE Social History Tobacco Use Types Packs/Day Years Used Date Smoking Tobacco: Never Assessed Comments Unknown Sex and Gender Information Value Date Recorded Sex Assigned at Not on file 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 Sex Female 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
--- OUTSIDE RECORDS SUMMARY | 2025-04-14 00:39 | XMS_ITS | Encounter Summary ---
Author Organization [facility] Address [address] [place] [address] Care Team Providers Care Room Worker Name Role Phone Kwaku Guerra MD Primary Care Provider [phone] Encounter Details Date Type Department Care Team (Latest Contact Info) Description 02/20/2006 Outpatient Historical [facility] Orthopedics- [address] [place] [phone] Dash Tinajero MD NO ADDRESS ON FILE Primary Localized Osteoarthrosis, Lower Leg (Primary Dx) Social History Tobacco Use Types Packs/Day Years Used Date Smoking Tobacco: Never Assessed Comments Unknown Sex and Gender Information Value Date Recorded Sex Assigned at Not on file Legal Sex Female 5:00 AM RADIO CONTROL CRANE OPERATOR Gender Identity Not on file Sexual Orientation Not on file documented as of this encounter Plan of Treatment Not on file documented as of this encounter Visit Diagnoses Diagnosis Primary localized osteoarthrosis, lower leg- Primary documented in this encounter Care Teams Room Worker Relationship Specialty Start Date End Date Kwaku Guerra MD [address] [place] [address] PCP - General Family Practice 11/16/14 documented as of this encounter
--- OUTSIDE RECORDS SUMMARY | 2025-04-14 00:39 | XMS_ITS | Encounter Summary ---
Author Organization [facility] Address [address] [place] [address] Care Team Providers Care Strategic Manager Name Role Phone Kwaku Guerra MD Primary Care Provider [phone] Encounter Details Date Type Department Care Team (Latest Contact Info) Description 06/06/2004 Outpatient [facility] Podiatry-[place] Garciann [place] [address] [place] [address] Octavio Samuels, DPM NO ADDRESS ON FILE Onychia of toe (Primary Dx); INGROWING NAIL; Hallux valgus Social History Tobacco Use Types Packs/Day Years Used Date Smoking Tobacco: Never Assessed Comments Unknown Sex and Gender Information Value Date Recorded Sex Assigned at Not on file 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
--- OUTSIDE RECORDS SUMMARY | 2025-04-14 00:39 | XMS_ITS | Encounter Summary ---
Author Organization [facility] Address [address] [place] [address] Care Team Providers Care Wire Coating Operator Metal Name Role Phone Kwaku Guerra MD Primary Care Provider [phone] Encounter Details Date Type Department Care Team (Latest Contact Info) Description 07/07/2006 Outpatient Historical [facility] [facility] [address] 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
--- OUTSIDE RECORDS SUMMARY | 2025-04-14 00:39 | XMS_ITS | Encounter Summary ---
Author Organization [facility] Address [address] [facility] 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
--- OUTSIDE RECORDS SUMMARY | 2025-04-14 00:39 | XMS_ITS | Encounter Summary ---
Author Organization [facility] Address [address] [place] [address] Care Team Providers Care Shoe Stock Associate Name Role Phone Kwaku Guerra MD Primary Care Provider [phone] Encounter Details Date Type Department Care Team (Late st Contact Info) Description 04/06/2007 Outpatient Historical [facility] Medicine [place] [address], [place] [phone] Neeraj Carrasco MD [address], [place] [phone] Social History Tobacco Use Types Packs/Day Years Used Date Smoking Tobacco: Never Assessed Comments Unknown Sex and Gender Information Value Date Recorded Sex Assigned at Not on file 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
--- OUTSIDE RECORDS SUMMARY | 2025-04-14 00:39 | XMS_ITS | Encounter Summary ---
Author Organization [employer] [facility] Address [address] [place] [address] Care Team Providers Care Line Repairer Name Role Phone Kwaku Guerra MD Primary Care Provider [phone] Encounter Details Date Type Department Care Team (Latest Contact Info) Description 07/02/2004 [facility] [place] [address] [place] [address] Wellness, Program NO ADDRESS ON FILE DIABETES MELLITUS TYPE II-UNCOMPL (CMS/HCC) (Primary Dx) Social History Tobacco Use Types Packs/Day Years Used Date Smoking Tobacco: Never Assessed Comments Unknown Sex and Gender Information Value Date Recorded Sex Assigned at Not on file Legal Sex Female 5:00 AM HOPPER FEEDER Gender Identity Not on file Sexual Orientation Not on file documented as of this encounter Plan of Treatment Not on file documented as of this encounter Visit Diagnoses Diagnosis Type II or unspecified type diabetes mellitus without mention of complication, not stated as uncontrolled- Primary documented in this encounter Care Teams Line Repairer Relationship Specialty Start Date End Date Kwaku Guerra MD [address] [place] [address] PCP - General Family Practice 11/16/14 documented as of this encounter
--- OUTSIDE RECORDS SUMMARY | 2025-04-14 00:39 | XMS_ITS | Encounter Summary ---
Author Organization [facility] Address [address] [place] [address] Care Team Providers Care Blast Setter Name Role Phone Kwaku Guerra MD Primary Care Provider [phone] Encounter Details Date Type Department Care Team (Latest Contact Info) Description 12/11/2005 Outpatient Historical [facility] Medicine [place] [address] [phone] Harriet Amado MD [address] [place] [phone] Unspecified Hypothyroidism (Primary Dx) Social History Tobacco Use Types Packs/Day Years Used Date Smoking Tobacco: Never Assessed Comments Unknown Sex and Gender Information Value Date Recorded Sex Assigned at Not on file Legal Sex Female 5: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
--- OUTSIDE RECORDS SUMMARY | 2025-04-14 00:39 | XMS_ITS | Encounter Summary ---
Author Organization [facility] Address [address] [place] [address] Care Team Providers Care Online Project Manager Name Role Phone Kwaku Guerra MD Primary Care Provider [phone] Encounter Details Date Type Department Care Team (Latest Contact Info) Description 03/02/2006 Outpatient Historical [facility] [address] [place] [phone] Kwaku Guerra MD [address] [place] [address] Acute Upper Respiratory Infections of Unspecified Site (Primary Dx) Social History Tobacco Use Types Packs/Day Years Used Date Smoking Tobacco: Never Assessed Comments Unknown Sex and Gender Information Value Date Recorded Sex Assigned at Not on file Legal Sex Female 5:00 AM POLICE LIAISON Gender Identity Not on file Sexual Orientation Not on file documented as of this encounter Plan of Treatment Not on file documented as of this encounter Visit Diagnoses Diagnosis Acute upper respiratory infections of unspecified site- Primary documented in this encounter Care Teams Online Project Manager Relationship Specialty Start Date End Date Kwaku Guerra MD [address] [phone] PCP - General Family Practice 11/16/14 documented as of this encounter
--- OUTSIDE RECORDS SUMMARY | 2025-04-14 00:39 | XMS_ITS | Encounter Summary ---
Author Organization [facility] Address [address] [place] [address] Care Team Providers Care Convalescent Sitter Name Role Phone Kwaku Guerra MD Primary Care Provider Encounter Details Date Type Department Care Team (Latest Contact Info) Description 02/01/2004 Outpatient Historical [facility] Medicine [place] [address] [place] [phone] Harriet Amado MD [address] [place] [address] SPRAIN SHOULDER/ARM NOS (Primary Dx); SHOULDER REGION DIS NEC Social History Tobacco Use Types Packs/Day Years Used Date Smoking Tobacco: Never Assessed Comments Unknown Sex and Gender Information Value Date Recorded Sex Assigned at Not on file Legal Sex Female 5:00 AM DENTAL INTERN Gender Identity Not on file Sexual Orientation Not on file documented as of this encounter Plan of Treatment Not on file documented as of this encounter Visit Diagnoses Diagnosis Sprain and strain of unspecified site of shoulder and upper arm- Primary Other affections of shoulder region, not elsewhere classified documented in this encounter Care Teams Convalescent Sitter Relationship Specialty Start Date End Date Kwaku Guerra MD [address] [place] [phone] PCP - General Family Practice 11/16/14 documented as of this encounter
--- OUTSIDE RECORDS SUMMARY | 2025-04-14 00:39 | XMS_ITS | Encounter Summary ---
Author Organization [facility] Address [address] [place] [address] Care Team Providers Care Asbestos Handler Name Role Phone Kwaku Guerra MD Primary Care Provider [phone] Encounter Details Date Type Department Care Team (Latest Contact Info) Description 04/12/2004 Outpatient Historical [facility] Medicine [place] [address] [place] [phone] Harriet Amado MD [address] [place] [phone] CELLULITIS, TOE NOS (Primary Dx) Social History Tobacco Use Types Packs/Day Years Used Date Smoking Tobacco: Never Assessed Comments Unknown Sex and Gender Information Value Date Recorded Sex Assigned at Not on file 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
--- OUTSIDE RECORDS SUMMARY | 2025-04-14 00:39 | XMS_ITS | Encounter Summary ---
Author Organization [facility] Address [address] [place] [address] Care Team Providers Care Road Tester Name Role Phone Kwaku Guerra MD Primary Care Provider [phone] Encounter Details Date Type Department Care Team (Latest Contact Info) Description 12/31/2005 Outpatient Historical [facility] Imaging Services [address] [place] [phone] Harriet Amado MD [address] [place] [phone] Chondromalacia (Primary Dx) Social History Tobacco Use Types Packs/Day Years Used Date Smoking Tobacco: Never Assessed Comments Unknown Sex and Gender Information Value Date Recorded Sex Assigned at Not on file Legal Sex Female 5:00 AM BURR SANDER Gender Identity Not on file Sexual Orientation Not on file documented as of this encounter Plan of Treatment Not on file documented as of this encounter Visit Diagnoses Diagnosis Chondromalacia- Primary documented in this encounter Care Teams Road Tester Relationship Specialty Start Date End Date Kwaku Guerra MD [address] [place] [address] PCP - General Family Practice 11/16/14 documented as of this encounter
--- OUTSIDE RECORDS SUMMARY | 2025-04-14 00:39 | XMS_ITS | Encounter Summary ---
Author Organization [facility] Address [address] [place] [address] Care Team Providers Care Ordnance Keeper Name Role Phone Kwaku Guerra MD Primary Care Provider [phone] Encounter Details Date Type Department Care Team (Latest Contact Info) Description 05/02/2004 Outpatient Historical [facility] Medicine [place] [address] [place] [phone] Harriet Amado MD [address] [place] [phone] HYPOTHYROIDISM NOS (Primary Dx) Social History Tobacco Use Types Packs/Day Years Used Date Smoking Tobacco: Never Assessed Comments Unknown Sex and Gender Information Value Date Recorded Sex Assigned at Not on file Legal Sex Female 5: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
--- OUTSIDE RECORDS SUMMARY | 2025-04-14 00:39 | XMS_ITS | Encounter Summary ---
Author Organization [facility] Address [address] [place] [address] Care Team Providers Care Postbed Stitcher Name Role Phone Kwaku Guerra MD Primary Care Provider [phone] Encounter Details Date Type Department Care Team (Latest Contact Info) Description 07/07/2006 Outpatient Historical [facility] Medicine [place] [address] [place] [phone] Harriet Amado MD [address] [place] [address] Unspecified Disorder of Skin and Subcutaneous Tissue (Primary Dx); Chronic Airway Obstruction, not Elsewhere Classified (CMS/HCC); Allergy, Unspecified not Elsewhere Classified Social History Tobacco Use Types Packs/Day Years Used Date Smoking Tobacco: Never Assessed Comments Unknown Sex and Gender Information Value Date Recorded Sex Assigned at Not on file 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 Sex Female 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 MANAGER Gender Identity Not on file Sexual Orientation Not on file documented as of this encounter Plan of Treatment Not on file documented as of this encounter Visit Diagnoses Diagnosis Unspecified disorder of skin and subcutaneous tissue- Primary Chronic airway obstruction, not elsewhere classified (CMS/HCC) Chronic airway obstruction, not elsewhere classified Allergy, unspecified not elsewhere classified documented in this encounter Care Teams Postbed Stitcher Relationship Specialty Start Date End Date Kwaku Guerra MD [address] [phone] PCP - General Family Practice 11/16/14 documented as of this encounter
--- OUTSIDE RECORDS SUMMARY | 2025-04-14 00:39 | XMS_ITS | Encounter Summary ---
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
--- OUTSIDE RECORDS SUMMARY | 2025-04-14 00:39 | XMS_ITS | Encounter Summary ---
Author Organization [facility] Address [address] [place] [address] Care Team Providers Care Press Setup Operator Name Role Phone Kwaku Guerra MD Primary Care Provider [phone] Encounter Details Date Type Department Care Team (Latest Contact Info) Description 02/27/2006 Outpatient Historical [facility] Orthoped[facility]- [address] [place] [address] [place] [phone] Dash Tinajero MD NO ADDRESS ON FILE Primary Localized Osteoarthrosis, Lower Leg (Primary Dx) Social History Tobacco Use Types Packs/Day Years Used Date Smoking Tobacco: Never Assessed Comments Unknown Sex and Gender Information Value Date Recorded Sex Assigned at Not on file Legal Sex Female 5:00 AM ICT BUSINESS DEVELOPMENT MANAGER Gender Identity Not on file Sexual Orientation Not on file documented as of this encounter Plan of Treatment Not on file documented as of this encounter Visit Diagnoses Diagnosis Primary localized osteoarthrosis, lower leg- Primary documented in this encounter Care Teams Press Setup Operator Relationship Specialty Start Date End Date Kwaku Guerra MD [address] [place] [address] PCP - General Family Practice 11/16/14 documented as of this encounter
--- OUTSIDE RECORDS SUMMARY | 2025-04-14 00:39 | XMS_ITS | Encounter Summary ---
Author Organization [facility] Address [address] [place] [address] Care Team Providers Care Director Of Strategic Programs Name Role Phone Kwaku Guerra MD Primary Care Provider [phone] Encounter Details Date Type Department Care Team (Latest Contact Info) Description 09/04/2006 Outpatient Historical [facility] Medicine [place] [address] [place] [phone] Stephania Gray, [facility] [address] [place] [phone] Dysthymic Disorder (Primary Dx) Social History Tobacco Use Types Packs/Day Years Used Date Smoking Tobacco: Never Assessed Comments Unknown Sex and Gender Information Value Date Recorded Sex Assigned at Not on file 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
--- OUTSIDE RECORDS SUMMARY | 2025-04-14 00:39 | XMS_ITS | Encounter Summary ---
Author Organization [facility] Address [address] [place] [address] Care Team Providers Care Dog Walker Name Role Phone Kwaku Guerra MD Primary Care Provider [phone] Encounter Details Date Type Department Care Team (Latest Contact Info) Description 10/21/2005 Outpatient Historical [facility] [address] [place] [phone] Gonzalo Montano, PLASTERER ROUGH [address] [place], [place] [address] Encounter for Long-Term (Current) Use of Other Medications (Primary Dx) Social History Tobacco Use Types Packs/Day Years Used Date Smoking Tobacco: Never Assessed Comments Unknown Sex and Gender Information Value Date Recorded Sex Assigned at Not on file Legal Sex Female 5:00 AM EVP OPERATIONS Gender Identity Not on file Sexual Orientation Not on file documented as of this encounter Plan of Treatment Not on file documented as of this encounter Visit Diagnoses Diagnosis Encounter for long-term (current) use of other medications- Primary documented in this encounter Care Teams Dog Walker Relationship Specialty Start Date End Date Kwkau Guerra MD [address] [phone] PCP - General Family Practice 11/16/14 documented as of this encounter
--- OUTSIDE RECORDS SUMMARY | 2025-04-14 00:39 | XMS_ITS | Encounter Summary ---
Author Organization [facility] Address [address] [place] [address] Care Team Providers Care Shift Stacker Name Role Phone Kwaku Guerra MD Primary Care Provider [phone] Encounter Details Date Type Department Care Team (Latest Contact Info) Description 06/06/2004 Outpatient Historical [facility] Imaging [facility] [address] [place] [phone] Octavio Samuels, DPM NO ADDRESS ON FILE Pain in limb (Primary Dx) Social History Tobacco Use Types Packs/Day Years Used Date Smoking Tobacco: Never Assessed Comments Unknown Sex and Gender Information Value Date Recorded Sex Assigned at Not on file 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
--- OUTSIDE RECORDS SUMMARY | 2025-04-14 00:39 | XMS_ITS | Encounter Summary ---
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
--- OUTSIDE RECORDS SUMMARY | 2025-04-14 00:39 | XMS_ITS | Encounter Summary ---
Author Organization [facility] Address [address] [place] [address] Care Team Providers Care Regional Truck Driver Name Role Phone Kwaku Guerra MD Primary Care Provider [phone] Encounter Details Date Type Department Care Team (Latest Contact Info) Description 06/14/2004 Outpatient [facility] [place] [address] [place] [address] Octavio Samuels, DPM NO ADDRESS ON FILE Onychia of toe (Primary Dx) Social History Tobacco Use Types Packs/Day Years Used Date Smoking Tobacco: Never Assessed Comments Unknown Sex and Gender Information Value Date Recorded Sex Assigned at Not on file 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
--- OUTSIDE RECORDS SUMMARY | 2025-04-14 00:39 | XMS_ITS | Encounter Summary ---
Author Organization [facility] Address [address] [place] [address] Care Team Providers Care Toll Lineman Name Role Phone Kwaku Guerra MD Primary Care Provider [phone] Encounter Details Date Type Department Care Team (Latest Contact Info) Description 03/05/2004 Outpatient Historical [facility] Medicine [place] [address] [place] [address] [phone] Harriet Amado MD [address] [place] [phone] HYPERLIPIDEMIA NEC/NOS (Primary Dx) Social History Tobacco Use Types Packs/Day Years Used Date Smoking Tobacco: Never Assessed Comments Unknown Sex and Gender Information Value Date Recorded Sex Assigned at Not on file 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
--- OUTSIDE RECORDS SUMMARY | 2025-04-14 00:39 | XMS_ITS | Encounter Summary ---
Author Organization [facility] Address [address] [place] [address] Care Team Providers Care Head Chef Name Role Phone Kwaku Guerra MD Primary Care Provider [phone] Encounter Details Date Type Department Care Team (Latest Contact Info) Description 02/06/2006 Outpatient Historical [facility] Orthopedics- [address] [place] 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
--- OUTSIDE RECORDS SUMMARY | 2025-04-14 00:39 | XMS_ITS | Encounter Summary ---
Author Organization [facility] Address [address] [place] [address] Care Team Providers Care Stone Crusher Operator Name Role Phone Kwaku Guerra MD Primary Care Provider [phone] Encounter Details Date Type Department Care Team (Late st Contact Info) Description 06/15/2004 Emergency [facility] [address] [place] [phone] Soniya Lo MD [address] [place] [address] VOMITING ALONE (Primary Dx) Social History Tobacco Use Types Packs/Day Years Used Date Smoking Tobacco: Never Assessed Comments Unknown Sex and Gender Information Value Date Recorded Sex Assigned at Not on file Legal Sex Female 5:00 AM WIRE TINNER Gender Identity Not on file Sexual Orientation Not on file documented as of this encounter Plan of Treatment Not on file documented as of this encounter Procedures Procedure Name Priority Date/Time Associated Diagnosis Comments CBC WITH DIFFERENTIAL Routine 06/15/2004 10:35 AM WIRE TINNER LIPASE Routine 06/15/2004 10:35 AM WIRE TINNER AMYLASE Routine 06/15/2004 10:35 AM WIRE TINNER COMPREHENSIVE METABOLIC PANEL Routine 06/15/2004 10:35 AM WIRE TINNER documented in this encounter Results * COMPREHENSIVE METABOLIC PANEL (06/15/2004 10:35 AM WIRE TINNER) GLUCOSE 96 70 - 110 mg/dL INTERFACE SYSTEM BUN 17 7 - 17 mg/dL INTERFACE SYSTEM CREATININE 0.7 0.7 - 1.2 mg/dL (inactive) INTERFACE SYSTEM SODIUM 142 136 - 145 mEq/L INTERFACE SYSTEM POTASSIUM 4.0 3.5 - 5.0 mEq/L INTERFACE SYSTEM CO2 27 22 - 32 mmol/l INTERFACE SYSTEM CHLORIDE 107 95 - 110 mEq/L INTERFACE SYSTEM CALCIUM 8.7 8.4 - 10.5 mg/dL INTERFACE SYSTEM ALKALINE PHOSPHATASE 91 38 - 126 IU/L INTERFACE SYSTEM TOTAL PROTEIN 7.2 6.3 - 8.2 g/dL INTERFACE SYSTEM ALBUMIN 3.6 3.5 - 5.0 g/dL INTERFACE SYSTEM AST 23 14 - 36 IU/L INTERFACE SYSTEM ALT 27 9 - 52 IU/L INTERFACE SYSTEM BILIRUBIN TOTAL 0.7 0.2 - 1.4 mg/dL INTERFACE SYSTEM GLOBULIN (CALC) 3.6 2.4 - 3.9 g/dL INTERFACE SYSTEM ANION GAP 12 9 - 20 mEq/L INTERFACE SYSTEM ALBUMIN/GLOBULIN RATIO 1.0 1.0 - 2.3 INTERFACE SYSTEM OSMOLALITY, CALCULATED 293 275 - 295 mOsm/Kg INTERFACE SYSTEM 06/15/2004 10:3 5 AM WIRE TINNER Soniya Lo MD CHEMISTRY ORDERABLES Final Result Performing Organization Address [facility] de Phone Number INTERFACE SYSTEM Refer to clinic/hospital department * LIPASE (06/15/2004 10:35 AM WIRE TINNER) LIPASE 79 23 - 300 IU/L INTERFACE SYSTEM 06/15/2004 10:3 5 AM WIRE TINNER Soniya Lo MD CHEMISTRY ORDERABLES Final Result Performing Organization Address City/[facility]/ZIP Co de Phone Number INTERFACE SYSTEM Refer to clinic/hospital department * AMYLASE (06/15/2004 10:35 AM WIRE TINNER) AMYLASE 33 30 - 120 IU/L INTERFACE SYSTEM 06/15/2004 10:3 5 AM WIRE TINNER us Soniya Lo MD CHEMISTRY ORDERABLES Final Result INTERFACE SYSTEM Refer to clinic/hospital department * (ABNORMAL) CBC WITH DIFFERENTIAL (06/15/2004 10:35 AM WIRE TINNER) WBC 4.6(L) 4.8 - 10.8 K/ul INTERFACE SYSTEM RBC 4.57 4.20 - 5.40 Mil/ul INTERFACE SYSTEM HEMOGLOBIN 14.4 12.0 - 16.0 g/dL INTERFACE SYSTEM HEMATOCRIT 42.9 36.0 - 46.0 % INTERFACE SYSTEM MCV 93.9 84.0 - 103.0 Fl INTERFACE SYSTEM MCH 31.5 27.0 - 34.0 pg INTERFACE SYSTEM MCHC 33.6 30.0 - 35.0 g/dL INTERFACE SYSTEM RDW 12.5 11.0 - 14.5 percent(in active) INTERFACE SYSTEM PLATELETS 261 140 - 440 K/ul INTERFACE SYSTEM MPV 10.8 8.9 - 12.8 Fl INTERFACE SYSTEM NEUTROPHILS 39.1(L) 42.2 - 75.2 percent(in active) INTERFACE SYSTEM LYMPHOCYTES 46.3(H) 24.0 - 44.0 percent(in active) INTERFACE SYSTEM MONOCYTES 7.9 2.0 - 10.0 percent(in active) INTERFACE SYSTEM EOSINOPHILS 6.3 0.0 - 7.0 % INTERFACE SYSTEM BASOPHILS 0.4 0.0 - 1.0 percent(in active) INTERFACE SYSTEM NEUTROPHIL ABSOLUTE 1.8(L) 2.0 - 8.0 K/uL INTERFACE SYSTEM LYMPHOCYTE ABSOLUTE 2.1 1.2 - 4.0 K/ul INTERFACE SYSTEM MONOCYTE ABSOLUTE 0.4 0.1 - 0.6 K/ul INTERFACE SYSTEM EOSINOPHIL ABSOLUTE 0.3 0.0 - 0.7 K/ul INTERFACE SYSTEM BASOPHILS ABSOLUTE 0.0 0.0 - 0.2 K/ul INTERFACE SYSTEM 06/15/2004 10:3 5 AM WIRE TINNER Soniya Lo MD HEMATOLOGY ORDERABLES Irene l Result INTERFACE SYSTEM Refer to clinic/hospital department documented in this encounter Visit Diagnoses Diagnosis Vomiting alone- Primary documented in this encounter Care Teams Stone Crusher Operator Relationship Specialty Start Date End Date Barbe, Kwaku O, MD [address] [place] [phone] PCP - General Family Practice 11/16/14 documented as of this encounter
--- OUTSIDE RECORDS SUMMARY | 2025-04-14 00:39 | XMS_ITS | Encounter Summary ---
Author Organization [facility] Address [address] [place] [address] Care Team Providers Care Cigar Binder Name Role Phone Kwaku Guerra MD Primary Care Provider [phone] Encounter Details Date Type Department Care Team (Latest Contact Info) Description 06/25/2006 Outpatient Historical [facility] Medicine [place] [address] [place] [phone] Harriet Amado MD [address] [place] [phone] Acute Frontal Sinusitis (Primary Dx); Unspecified Disorder of Skin and Subcutaneous Tissue Social History Tobacco Use Types Packs/Day Years Used Date Smoking Tobacco: Never Assessed Comments Unknown Sex and Gender Information Value Date Recorded Sex Assigned at Not on file 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
--- OUTSIDE RECORDS SUMMARY | 2025-04-14 00:39 | XMS_ITS | Encounter Summary ---
Author Organization [facility] Address [address] [place] [address] Care Team Providers Care Delivery Room Clerk Name Role Phone Kwaku Guerra MD Primary Care Provider Encounter Details Date Type Department Care Team (Latest Contact Info) Description 12/31/2005 Outpatient Historical [facility] [place] [address] [place] [address] Harriet Amado MD [address] [place] [phone] Unspecified Arthropathy, Lower Leg (Primary Dx) Social History Tobacco Use Types Packs/Day Years Used Date Smoking Tobacco: Never Assessed Comments Unknown Sex and Gender Information Value Date Recorded Sex Assigned at Not on file 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
--- OUTSIDE RECORDS SUMMARY | 2025-04-14 00:39 | XMS_ITS | Encounter Summary ---
Author Organization [facility] Address [address] [place] [address] Care Team Providers Care Retail Marketing Executive Name Role Phone Kwaku Guerra MD Primary Care Provider [phone] Encounter Details Date Type Department Care Team (Latest Contact Info) Description 03/13/2005 Outpatient Historical [facility] Medicine [place] [address] [place] [address] [phone] Stephania Gray, [facility] [address] [place] [phone] URIN TRACT INFECTION NOS (Primary Dx); URGE INCONTINENCE Social History Tobacco Use Types Packs/Day Years Used Date Smoking Tobacco: Never Assessed Comments Unknown Sex and Gender Information Value Date Recorded Sex Assigned at Not on file 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
--- OUTSIDE RECORDS SUMMARY | 2025-04-14 00:39 | XMS_ITS | Encounter Summary ---
Author Organization [facility] Address [address] [place] [address] Care Team Providers Care Facing Baster Jumpbasting Name Role Phone Kwaku Guerra MD Primary Care Provider [phone] Encounter Details Date Type Department Care Team (Latest Contact Info) Description 02/02/2006 Outpatient Historical [facility] Medicine [place] [address] [place] [phone] Harriet Amado MD [address] [place] [address] [phone] Osteoarth NOS-L/Leg (Primary Dx) Social History Tobacco Use Types Packs/Day Years Used Date Smoking Tobacco: Never Assessed Comments Unknown Sex and Gender Information Value Date Recorded Sex Assigned at Not on file 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
--- OUTSIDE RECORDS SUMMARY | 2025-04-14 00:39 | XMS_ITS | Encounter Summary ---
Author Organization [facility] Address [address] [place] [address] Care Team Providers Care Cook Fishing Vessel Name Role Phone Kwaku Guerra MD Primary Care Provider [phone] Encounter Details Date Type Department Care Team (Latest Contact Info) Description 07/30/2004 Outpatient Historical [facility] Medicine [place] [address] [place] [phone] Harriet Amado MD [address] [place] [address] [phone] ACUTE FRONTAL SINUSITIS (Primary Dx); Other lymphedema Social History Tobacco Use Types Packs/Day Years Used Date Smoking Tobacco: Never Assessed Comments Unknown Sex and Gender Information Value Date Recorded Sex Assigned at Not on file Legal Sex Female 5:00 AM GENETIC COORDINATOR Gender Identity Not on file Sexual Orientation Not on file documented as of this encounter Plan of Treatment Not on file documented as of this encounter Visit Diagnoses Diagnosis Acute frontal sinusitis- Primary Other lymphedema Other noninfectious lymphedema documented in this encounter Care Teams Cook Fishing Vessel Relationship Specialty Start Date End Date Kwaku Guerra MD [address] [place] [phone] PCP - General Family Practice 11/16/14 documented as of this encounter
--- OUTSIDE RECORDS SUMMARY | 2025-04-14 00:39 | XMS_ITS | Encounter Summary ---
Author Organization [facility] Address [address] [place] [address] Care Team Providers Care Community Health Coordinator Name Role Phone Kwaku Guerra MD Primary Care Provider [phone] Encounter Details Date Type Department Care Team (Latest Contact Info) Description 09/15/2006 Outpatient Historical [facility] Medicine [place] [address] [place] [address] [phone] Harriet Amado MD [address] [place] [phone] Acute Frontal Sinusitis (Primary Dx) Social History Tobacco Use Types Packs/Day Years Used Date Smoking Tobacco: Never Assessed Comments Unknown Sex and Gender Information Value Date Recorded Sex Assigned at Not on file 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
--- OUTSIDE RECORDS SUMMARY | 2025-04-14 00:39 | XMS_ITS | Encounter Summary ---
Author Organization [facility] Address [address] [place] [address] Care Team Providers Care Cash Crop Farmer Name Role Phone Kwaku Guerra MD Primary Care Provider [phone] Encounter Details Date Type Department Care Team (Late st Contact Info) Description 05/12/2007 Outpatient Historical [facility] [address] [place] [address] Neeraj Carrasco MD [address] [place] [address] Social History Tobacco Use Types Packs/Day Years Used Date Smoking Tobacco: Never Assessed Comments Unknown Sex and Gender Information Value Date Recorded Sex Assigned at Not on file Legal Sex Female 5:00 AM COURTROOM DEPUTY Gender Identity Not on file Sexual Orientation Not on file documented as of this encounter Plan of Treatment Not on file documented as of this encounter Visit Diagnoses Not on filedocumented in this encounter Care Teams Cash Crop Farmer Relationship Specialty Start Date End Date Kwaku Guerra MD [address] [place] [phone] PCP - General Family Practice 11/16/14 documented as of this encounter
--- OUTSIDE RECORDS SUMMARY | 2025-04-14 00:39 | XMS_ITS | Encounter Summary ---
Author Organization [facility] Address [address] [place] [address] Care Team Providers Care Tool Maker Name Role Phone Kwaku Guerra MD Primary Care Provider [phone] Encounter Details Date Type Department Care Team (Latest Contact Info) Description 12/17/2005 Outpatient Historical [facility] Medicine [place] [address] [place] [address] [phone] Shadia Silver MD [facility] [place] [address] Pain in Joint, Lower Leg (Primary Dx); Unspecified Myalgia and Myositis Social History Tobacco Use Types Packs/Day Years Used Date Smoking Tobacco: Never Assessed Comments Unknown Sex and Gender Information Value Date Recorded Sex Assigned at Not on file Legal Sex Female 5:00 AM PACKER Gender Identity Not on file Sexual Orientation Not on file documented as of this encounter Plan of Treatment Not on file documented as of this encounter Visit Diagnoses Diagnosis Pain in joint, lower leg- Primary Myalgia and myositis, unspecified Mylagia and myositis, unspecified documented in this encounter Care Teams Tool Maker Relationship Specialty Start Date End Date Kwaku Guerra MD [address] [place] [address] [phone] PCP - General Family Practice 11/16/14 documented as of this encounter
--- OUTSIDE RECORDS SUMMARY | 2025-04-14 00:39 | XMS_ITS | Encounter Summary ---
Author Organization [facility] Address [address] [place] [address] Care Team Providers Care Cotton Washer Name Role Phone Kwaku Guerra MD Primary Care Provider [phone] Encounter Details Date Type Department Care Team (Late st Contact Info) Description 05/11/2007 Outpatient Historical [facility] Medicine [place] [address], [place] [phone] Neeraj Carrasco MD [address], [place] [phone] Social History Tobacco Use Types Packs/Day Years Used Date Smoking Tobacco: Never Assessed Comments Unknown Sex and Gender Information Value Date Recorded Sex Assigned at Not on file 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
--- OUTSIDE RECORDS SUMMARY | 2025-04-14 00:39 | XMS_ITS | Encounter Summary ---
Author Organization [facility] Address [address] [place] [address] Care Team Providers Care Mainframe Developer Name Role Phone Kwaku Guerra MD Primary Care Provider [phone] Encounter Details Date Type Department Care Team (Latest Contact Info) Description 10/27/2005 Outpatient Historical [facility] Medicine [place] [address] [place] [address] [phone] Harriet Amado MD [address] [place] [address] [phone] Unspecified Hypothyroidism (Primary Dx); Other and Unspecified Hyperlipidemia; Other Malaise and Fatigue Social History Tobacco Use Types Packs/Day Years Used Date Smoking Tobacco: Never Assessed Comments Unknown Sex and Gender Information Value Date Recorded Sex Assigned at Not on file Legal Sex Female 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
--- OUTSIDE RECORDS SUMMARY | 2025-04-14 00:39 | XMS_ITS | Encounter Summary ---
Author Organization [facility] Address [address] [place] [address] Care Team Providers Care Ux Research Associate Name Role Phone Kwaku Guerra MD Primary Care Provider [phone] Encounter Details Date Type Department Care Team (Latest Contact Info) Description 07/05/2004 Outpatient [facility] [place] [address] [place] [address] Octavio Samuels, DPM NO ADDRESS ON FILE Hallux valgus (Primary Dx); EDEMA Social History Tobacco Use Types Packs/Day Years Used Date Smoking Tobacco: Never Assessed Comments Unknown Sex and Gender Information Value Date Recorded Sex Assigned at Not on file 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
--- OUTSIDE RECORDS SUMMARY | 2025-04-14 00:39 | XMS_ITS | Encounter Summary ---
Author Organization [facility] Address [address] [place] [address] Care Team Providers Care Collision Repairer Name Role Phone Kwaku Guerra MD Primary Care Provider [phone] Encounter Details Date Type Department Care Team (Latest Contact Info) Description 03/03/2005 Outpatient Historical [facility] Medicine [place] [address] [place] [phone] Harriet Amado MD [address] [place] [phone] HYPOTHYROIDISM NOS (Primary Dx); HYPERLIPIDEMIA NEC/NOS; ALLERGY, UNSPECIFIED; ASTHMA UNSPECIFIED; Vaccine for influenza Social History Tobacco Use Types Packs/Day Years Used Date Smoking Tobacco: Never Assessed Comments Unknown Sex and Gender Information Value Date Recorded Sex Assigned at Not on file Legal Sex Female 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 Gender Identity Not on file Sexual Orientation Not on file documented as of this encounter Plan of Treatment Not on file documented as of this encounter Visit Diagnoses Diagnosis Unspecified hypothyroidism- Primary Other and unspecified hyperlipidemia Allergy, unspecified not elsewhere classified Unspecified asthma(493.90) Unspecified asthma Vaccine for influenza Need for prophylactic vaccination and inoculation against influenza documented in this encounter Care Teams Collision Repairer Relationship Specialty Start Date End Date Kwaku Guerra MD [address] [phone] PCP - General Family Practice 11/16/14 documented as of this encounter
--- OUTSIDE RECORDS SUMMARY | 2025-04-14 00:39 | XMS_ITS | Encounter Summary ---
Author Organization [facility] Address [address] [place] [address] Care Team Providers Care Garland Machine Operator Name Role Phone Kwaku Guerra MD Primary Care Provider [phone] Encounter Details Date Type Department Care Team (Latest Contact Info) Description 03/31/2006 Outpatient Historical [facility] Medicine [place] [address] [place] [phone] Harriet Amado MD [address] [place] [phone] Acute Bronchitis (Primary Dx); Acute Laryngitis, without Mention of Obstruction Social History Tobacco Use Types Packs/Day Years Used Date Smoking Tobacco: Never Assessed Comments Unknown Sex and Gender Information Value Date Recorded Sex Assigned at Not on file 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
--- OUTSIDE RECORDS SUMMARY | 2025-04-14 00:39 | XMS_ITS | Encounter Summary ---
Author Organization [facility] Address [address] [place] [address] Care Team Providers Care Tobacco Stripper Hand Name Role Phone Kwaku Guerra MD Primary Care Provider Encounter Details Date Type Department Care Team (Latest Contact Info) Description 02/13/2006 Outpatient Historical [facility] Orthoped[facility]- 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
--- OUTSIDE RECORDS SUMMARY | 2025-04-14 00:39 | XMS_ITS | Encounter Summary ---
Author Organization [facility] Address [address] [place] [address] Care Team Providers Care Fishing Worker Name Role Phone Kwaku Guerra MD Primary Care Provider Encounter Details Date Type Department Care Team (Latest Contact Info) Description 02/05/2004 Outpatient Historical [facility] [address] [place] [phone] Gonzalo Montano, SPECIAL EDUCATION SECRETARY [address] [place] [address] BONE & CARTILAGE DIS NOS (Primary Dx) Social History Tobacco Use Types Packs/Day Years Used Date Smoking Tobacco: Never Assessed Comments Unknown Sex and Gender Information Value Date Recorded Sex Assigned at Not on file 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
--- OUTSIDE RECORDS SUMMARY | 2025-04-14 00:39 | XMS_ITS | Encounter Summary ---
Author Organization [facility] Address [address] [place] [address] Care Team Providers Care Body Work Auto Trimmer Name Role Phone Kwaku Guerra MD Primary Care Provider [phone] Encounter Details Date Type Department Care Team (Latest Contact Info) Description 05/28/2004 Outpatient Historical [facility] Medicine [place] [address] [place] [phone] Harriet Amado MD [address] [place] [address] [phone] CELLULITIS, TOE NOS (Primary Dx); BUNION Social History Tobacco Use Types Packs/Day Years Used Date Smoking Tobacco: Never Assessed Comments Unknown Sex and Gender Information Value Date Recorded Sex Assigned at Not on file 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
--- OUTSIDE RECORDS SUMMARY | 2025-04-14 00:39 | XMS_ITS | Encounter Summary ---
Author Organization [facility] Address [address] [place] [address] Care Team Providers Care Veterinary Medicine Scientist Name Role Phone Kwaku Guerra MD Primary Care Provider [phone] Encounter Details Date Type Department Care Team (Late Contact Info) Description 12/31/2005 Outpatient Historical [facility] [place] [address] [place] [address] Social History Tobacco Use Types Packs/Day Years Used Date Smoking Tobacco: Never Assessed Comments Unknown Sex and Gender Information Value Date Recorded Sex Assigned at Not on file Legal Sex Female 5:00 AM SUBASSEMBLER Gender Identity Not on file Sexual Orientation Not on file documented as of this encounter Plan of Treatment Not on file documented as of this encounter Visit Diagnoses Not on filedocumented in this encounter Care Teams Veterinary Medicine Scientist Relationship Specialty Start Date End Date Kwaku Guerra MD [address] [place] [phone] PCP - General Family Practice 11/16/14 documented as of this encounter
--- OUTSIDE RECORDS SUMMARY | 2025-04-14 00:40 | XMS_ITS | Encounter Summary ---
Author Organization [facility] Address [address] [place] [address] Care Team Providers Care Body Cleaner Name Role Phone Kwaku Guerra MD Primary Care Provider [phone] Encounter Details Date Type Department Care Team (Latest Contact Info) Description 06/04/2005 Outpatient Historical [facility] [place] [address] [place] [address] Harriet Amado MD [address] [place] [phone] BACKACHE NOS (Primary Dx) Social History Tobacco Use Types Packs/Day Years Used Date Smoking Tobacco: Never Assessed Comments Unknown Sex and Gender Information Value Date Recorded Sex Assigned at Not on file 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
--- OUTSIDE RECORDS SUMMARY | 2025-04-14 00:40 | XMS_ITS | Encounter Summary ---
Author Organization [facility] Address [address] [place] [address] Care Team Providers Care Loader Technician Name Role Phone Kwaku Guerra MD Primary Care Provider [phone] Encounter Details Date Type Department Care Team (Latest Contact Info) Description 06/02/2005 Outpatient Historical [facility] [address] [place] [address] [phone] Gonzalo Montano, TRAILHEAD CONSTRUCTION WORKER [address] [place], [place] [phone] ACUTE FRONTAL SINUSITIS (Primary Dx); ACUTE BRONCHITIS; Pain in limb Social History Tobacco Use Types Packs/Day Years Used Date Smoking Tobacco: Never Assessed Comments Unknown Sex and Gender Information Value Date Recorded Sex Assigned at Not on file Legal Sex Female 5:00 AM SENIOR QA ANALYST Gender Identity Not on file Sexual Orientation Not on file documented as of this encounter Plan of Treatment Not on file documented as of this encounter Visit Diagnoses Diagnosis Acute frontal sinusitis- Primary Acute bronchitis Pain in limb Pain in soft tissues of limb documented in this encounter Care Teams Loader Technician Relationship Specialty Start Date End Date Kwaku Guerra MD [address] [place] [address] [phone] PCP - General Family Practice 11/16/14 documented as of this encounter
--- OUTSIDE RECORDS SUMMARY | 2025-04-14 00:40 | XMS_ITS | Encounter Summary ---
Author Organization [facility] Address [address] [place] [address] Care Team Providers Care Tack Maker Name Role Phone Kwaku Guerra MD Primary Care Provider [phone] Encounter Details Date Type Department Care Team (Latest Contact Info) Description 07/08/2005 Outpatient Historical [facility] Imaging Services [address] [place] [phone] Neeraj Carrasco MD [address] [place] [address] Osteoarth NOS-L/Leg (Primary Dx) Social History Tobacco Use Types Packs/Day Years Used Date Smoking Tobacco: Never Assessed Comments Unknown Sex and Gender Information Value Date Recorded Sex Assigned at Not on file Legal Sex Female 5:00 AM ELECTRICAL ENGINEERING TECHNOLOGIST Gender Identity Not on file Sexual Orientation Not on file documented as of this encounter Plan of Treatment Not on file documented as of this encounter Procedures Procedure Name Priority Date/Time Associated Diagnosis Comments XR KNEE 1 OR 2 VW LEFT Routine 07/08/2005 2:23 PM ELECTRICAL ENGINEERING TECHNOLOGIST XR HIP 2 OR 3 VIEWS RT Routine 07/08/2005 2:23 PM ELECTRICAL ENGINEERING TECHNOLOGIST documented in this encounter Results * XR HIP 2+ VW RIGHT (07/08/2005 2:23 PM ELECTRICAL ENGINEERING TECHNOLOGIST) Anatomical Region Laterality Modality Lower Extremity Right Other 07/08/2005 2:23 PM ELECTRICAL ENGINEERING TECHNOLOGIST Narrative 07/08/2005 2:23 PM ELECTRICAL ENGINEERING TECHNOLOGIST 07/08/2005 RIGHT HIP: HISTORY: Pain. No comparisons. There is no evidence for fracture, dislocation, or other acute radiographic abnormality. No lytic or blastic lesions are noted. Mild degenerative change is present. IMPRESSION: Mild degenerative change. [facility] Dictated By: Beata Conway M.D. Electronically Signed By: Beata Conway M.D. Date Signed: 07/09/05 [facility] Procedure Note 03/23/2009 07/08/2005 RIGHT HIP: HISTORY: Pain. No comparisons. There is no evidence for fracture, dislocation, or other acuteradiographic abnormality. No lytic or blastic lesions are noted. Mild degenerative change is present. IMPRESSION: Mild degenerative change. [facility] Dictated By: Beata Conway M.D. Electronically Signed By: Beata Conway M.D. Date Signed: 07/09/05 [facility] Neeraj Carrasco MD DIAGNOSTIC IMAGING ORDERABLE S Final Result * XR KNEE 1 OR 2 VW LEFT (07/08/2005 2:23 PM ELECTRICAL ENGINEERING TECHNOLOGIST) Anatomical Region Laterality Modality Lower Extremity Other 07/08/2005 2:23 PM ELECTRICAL ENGINEERING TECHNOLOGIST Narrative 07/08/2005 2:23 PM ELECTRICAL ENGINEERING TECHNOLOGIST 07-08-05 LEFT KNEE: HISTORY: Pain. There are no comparisons. There is no evidence for fracture, dislocation, or other acute radiographic abnormality. There is mild narrowing of the medial and lateral joint space compartments. There is moderate to severe narrowing of the patellofemoral space. There are moderate osteophytes along the posterior aspect of the patella, along the anterior superior aspect of the distal femoral articular surface, along the joint margins of the tibia and along the tibial spines. IMPRESSION: Moderate degenerative change involving the left knee. [facility] D: 07-08-05 1817 Dictated By: Beata Conway M.D. Electronically Signed By: Beata Conway M.D. Date Signed: 07/09/05 Procedure Note 03/23/2009 07-08-05 LEFT KNEE: HISTORY: Pain. There are no comparisons. There is no evidence for fracture, dislocation, or other acuteradiographic abnormality. There is mild narrowing of the medial and lateral joint space compartments. There ismoderate to severe narrowing of the patellofemoral space. There are moderate osteophytes along theposterior aspect of the patella, along the anterior superior aspect of the distal femoral articularsurface, along the joint margins of the tibia and along the tibial spines. IMPRESSION: Moderate degenerative change involving the left knee. [facility] D: 07-08-05 1817 Dictated By: Beata Conway M.D. Electronically Signed By: Beata Conway M.D. Date Signed: 07/09/05 us Neeraj Carrasco MD DIAGNOSTIC IMAGING ORDERABLE S Final Result documented in this encounter Visit Diagnoses Diagnosis Osteoarthrosis, unspecified whether generalized or localized, lower leg- Primary documented in this encounter Care Teams Tack Maker Relationship Specialty Start Date End Date Kwaku Guerra MD [address] [place] [address] PCP - General Family Practice 11/16/14 documented as of this encounter
--- OUTSIDE RECORDS SUMMARY | 2025-04-14 00:40 | XMS_ITS | Encounter Summary ---
Author Organization [facility] Address [address] [place] [address] Care Team Providers Care Coin Purse Assembler Name Role Phone Kwaku Guerra MD Primary Care Provider [phone] Encounter Details Date Type Department Care Team (Latest Contact Info) Description 05/16/2005 Outpatient Historical [facility] [place] [address] [place] [address] [phone] Stephania Gray, TREAD BOOKER [address] [place] [phone] COUGH (Primary Dx) Social History Tobacco Use Types Packs/Day Years Used Date Smoking Tobacco: Never Assessed Comments Unknown Sex and Gender Information Value Date Recorded Sex Assigned at Not on file Legal Sex Female 5:00 AM RISK AND INSURANCE MANAGER Gender Identity Not on file Sexual Orientation Not on file documented as of this encounter Plan of Treatment Not on file documented as of this encounter Visit Diagnoses Diagnosis Cough- Primary documented in this encounter Care Teams Coin Purse Assembler Relationship Specialty Start Date End Date Kwaku Guerra MD [address] [place] [phone] PCP - General Family Practice 11/16/14 documented as of this encounter
--- OUTSIDE RECORDS SUMMARY | 2025-04-14 00:40 | XMS_ITS | Encounter Summary ---
Author Organization [facility] Address [address] [place] [address] Care Team Providers Care Dry Clipper Tender Name Role Phone Kwaku Guerra MD Primary Care Provider [phone] Encounter Details Date Type Department Care Team (Latest Contact Info) Description 04/07/2005 Outpatient Historical [facility] Medicine [place] [address] [place] [address] [phone] Neeraj Carrasco MD [address] [place] [address] ACUTE PHARYNGITIS (Primary Dx); Dysfunct eustachian tube Social History Tobacco Use Types Packs/Day Years Used Date Smoking Tobacco: Never Assessed Comments Unknown Sex and Gender Information Value Date Recorded Sex Assigned at Not on file 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
--- OUTSIDE RECORDS SUMMARY | 2025-04-14 00:40 | XMS_ITS | Encounter Summary ---
Author Organization [facility] Address [address] [place] [address] Care Team Providers Care Retail Team Member Name Role Phone Kwaku Guerra MD Primary Care Provider Encounter Details Date Type Department Care Team (Latest Contact Info) Description 06/17/2005 Outpatient Historical [facility] [place] [address] [place] [address] Harriet Amado MD [address] [place] [phone] BACKACHE NOS (Primary Dx) Social History Tobacco Use Types Packs/Day Years Used Date Smoking Tobacco: Never Assessed Comments Unknown Sex and Gender Information Value Date Recorded Sex Assigned at Not on file Legal Sex Female 5:00 AM SORORITY MOTHER Gender Identity Not on file Sexual Orientation Not on file documented as of this encounter Plan of Treatment Not on file documented as of this encounter Visit Diagnoses Diagnosis Backache, unspecified- Primary documented in this encounter Care Teams Retail Team Member Relationship Specialty Start Date End Date Kwaku Guerra MD [address] [place] [phone] PCP - General Family Practice 11/16/14 documented as of this encounter
--- OUTSIDE RECORDS SUMMARY | 2025-04-14 00:40 | XMS_ITS | Encounter Summary ---
Author Organization [facility] Address [address] [place] [address] Care Team Providers Care Chief Petroleum Engineer Name Role Phone Kwaku Guerra MD Primary Care Provider [phone] Encounter Details Date Type Department Care Team (Latest Contact Info) Description 08/05/2005 Outpatient Historical [facility] Rheumatology- [facility] [place] [address] [place] [phone] Vincent Amado MD NO ADDRESS ON FILE Generalized Osteoarthrosis, Involving Multiple Sites (Primary Dx) Social History Tobacco Use Types Packs/Day Years Used Date Smoking Tobacco: Never Assessed Comments Unknown Sex and Gender Information Value Date Recorded Sex Assigned at Not on file Legal Sex Female 5:00 AM SWIMMING POOL SERVICEPERSON Gender Identity Not on file Sexual Orientation Not on file documented as of this encounter Plan of Treatment Not on file documented as of this encounter Visit Diagnoses Diagnosis Generalized osteoarthrosis, involving multiple sites- Primary documented in this encounter Care Teams Chief Petroleum Engineer Relationship Specialty Start Date End Date Kwaku Guerra MD [address] [place] [phone] PCP - General Family Practice 11/16/14 documented as of this encounter
--- OUTSIDE RECORDS SUMMARY | 2025-04-14 00:40 | XMS_ITS | Encounter Summary ---
Author Organization [facility] Address [address] [place] [address] Care Team Providers Care Wastewater Plant Operator Name Role Phone Kwaku Guerra MD Primary Care Provider [phone] Encounter Details Date Type Department Care Team (Latest Contact Info) Description 03/19/2005 Outpatient Historical [facility] [place] [address] [place] [address] [phone] Stephania Gray, [facility] [address] [place] [phone] URIN TRACT INFECTION NOS (Primary Dx) Social History Tobacco Use Types Packs/Day Years Used Date Smoking Tobacco: Never Assessed Comments Unknown Sex and Gender Information Value Date Recorded Sex Assigned at Not on file Legal Sex Female 5:00 AM ONLINE MERCHANDISING SPECIALIST Gender Identity Not on file Sexual Orientation Not on file documented as of this encounter Plan of Treatment Not on file documented as of this encounter Visit Diagnoses Diagnosis Urinary tract infection, site not specified- Primary documented in this encounter Care Teams Wastewater Plant Operator Relationship Specialty Start Date End Date Kwaku Guerra MD [address] [place] [address] [phone] PCP - General Family Practice 11/16/14 documented as of this encounter
--- OUTSIDE RECORDS SUMMARY | 2025-04-14 00:40 | XMS_ITS | Encounter Summary ---
Author Organization [facility] Address [address] [place] [address] Care Team Providers Care Recorder Gravity Prospecting Name Role Phone Kwaku Guerra MD Primary Care Provider [phone] Encounter Details Date Type Department Care Team (Latest Contact Info) Description 01/28/2005 Outpatient Historical [facility] Medicine [place] [address] [place] [address] [phone] Harriet Amado MD [address] [place] [phone] CELLULITIS NOS (Primary Dx); NONSPECIF SKIN ERUPT NEC; Bladder hypertonicity Social History Tobacco Use Types Packs/Day Years Used Date Smoking Tobacco: Never Assessed Comments Unknown Sex and Gender Information Value Date Recorded Sex Assigned at Not on file 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
--- OUTSIDE RECORDS SUMMARY | 2025-04-14 00:40 | XMS_ITS | Encounter Summary ---
Author Organization [facility] Address [address] [place] [address] Care Team Providers Care Skate Maker Name Role Phone Kwaku Guerra MD Primary Care Provider [phone] Encounter Details Date Type Department Care Team (Latest Contact Info) Description 04/22/2005 Outpatient Historical [facility] Medicine [place] [address] [place] [address] [phone] Neeraj Carrasco MD [address] [place] [phone] HYPERLIPIDEMIA NEC/NOS (Primary Dx); HYPOTHYROIDISM NOS Social History Tobacco Use Types Packs/Day Years Used Date Smoking Tobacco: Never Assessed Comments Unknown Sex and Gender Information Value Date Recorded Sex Assigned at Not on file 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
--- OUTSIDE RECORDS SUMMARY | 2025-04-14 00:40 | XMS_ITS | Encounter Summary ---
Author Organization [facility] Address [address] [place] [address] Care Team Providers Care Living Nurse Name Role Phone Kwaku Guerra MD Primary Care Provider [phone] Encounter Details Date Type Department Care Team (Latest Contact Info) Description 02/25/2005 Outpatient Historical [facility] Medicine [place] [address] [place] [phone] Harriet Amado MD [address] [place] [phone] SCREENING FOR CONDITION NOS (Primary Dx) Social History Tobacco Use Types Packs/Day Years Used Date Smoking Tobacco: Never Assessed Comments Unknown Sex and Gender Information Value Date Recorded Sex Assigned at Not on file 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
--- OUTSIDE RECORDS SUMMARY | 2025-04-14 00:40 | XMS_ITS | Encounter Summary ---
Author Organization [facility] Address [address] [place] [address] Care Team Providers Care Special Education Associate Name Role Phone Kwaku Guerra MD Primary Care Provider [phone] Encounter Details Date Type Department Care Team (Latest Contact Info) Description 06/24/2005 Outpatient Historical [facility] Medicine [place] [address] [place] [address] [phone] Neeraj Carrasco MD [address] [place] [address] MYALGIA AND MYOSITIS NOS (Primary Dx) Social History Tobacco Use Types Packs/Day Years Used Date Smoking Tobacco: Never Assessed Comments Unknown Sex and Gender Information Value Date Recorded Sex Assigned at Not on file 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
--- OUTSIDE RECORDS SUMMARY | 2025-04-14 00:40 | XMS_ITS | Encounter Summary ---
Author Organization [facility] Address [address] [place] [address] Care Team Providers Care Sap Crm Developer Name Role Phone Kwaku Guerra MD Primary Care Provider [phone] Encounter Details Date Type Department Care Team (Latest Contact Info) Description 10/16/2005 Outpatient Historical [facility] [address] [place] [address] [phone] Gonzalo Montano, SOCIAL RESEARCH ASSISTANT [address] [place], [place] [address] Other Malaise and Fatigue (Primary Dx); Other and Unspecified Hyperlipidemia; Acute Bronchitis Social History Tobacco Use Types Packs/Day Years Used Date Smoking Tobacco: Never Assessed Comments Unknown Sex and Gender Information Value Date Recorded Sex Assigned at Not on file 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
--- OUTSIDE RECORDS SUMMARY | 2025-04-14 00:40 | XMS_ITS | Clinical Summary ---
Author Organization [facility] Address [address] [place] [address] Care Team Providers Care Counter Cutter Name Role Phone LatriceAroldo fry Primary Care Provider [phone] Allergies Active Allergy Reactions Criticality Noted Date Comments Meperidine Itching Low 03/08/2008 Phenobarbital Itching Low 03/08/2008 Simvastatin Muscle Pain Low 03/08/2008 Solifenacin Itching Medium 03/04/2009 Tramadol Nausea and Vomiting High 10/24/2011 Medications inhalational spacing device Spacer Use with inhaler.. 1 Device 0 11/13/19 16 Active betamethasone, augmented (DIPROLENE-AF) 0.05 % Cream Apply to affected area 2 times daily. To rash area on abdomen and area on left leg. 50 Gram 1 12/11/19 22 Active diphenhydrAMINE (BENADRYL) 25 mg tablet Take 1 Tablet (25 mg) by mouth nightly as needed for Insomnia. 30 Tablet 01/12/20 22 Active ergocalciferol (VITAMIN D2) 50,000 unit capsule 01/03/20 22 Active hydrocortisone (HYTONE) 2.5 % CreamIndications:R immanuel Apply to affected area 2 times daily. For 2 weeks 20 Gram 1 07/29/19 23 Active Premarin 0.625 mg/gram vaginal cream APPLY BLUEBERRY SIZED AMOUNT TO URETHRA THURSDAY, THURSDAY AND THURSDAY FOR INFECTION PREVENTION 30 Gram 4 01/12/20 24 Active mupirocin (BACTROBAN) 2 % Ointment Apply to affected area 2 times daily. 06/01/19 25 Active fluorouraciL (EFUDEX) 5 % Cream Apply to affected area 2 times daily. 05/20/19 25 Active HYDROcodone-acetam inophen (NORCO) 5-325 mg tabletIndications: Primary osteoarthritis involving multiple joints Take 1 Tablet by mouth nightly as needed for Pain. Max Daily Amount: 1 Tablet 20 Tablet 06/08/19 25 Active cetirizine (ZyrTEC) 10 mg tabletIndications: Environmental allergies TAKE 1 TABLET DAILY 90 Tablet 3 07/12/19 25 Active ketoconazole (NIZORAL) 2 % CreamIndications:S kin lesion APPLY TO AFFECTED AREA DAILY. RASH AREA ON LOWER LEFT ABDOMEN. 30 Gram 1 08/06/19 25 Active albuterol sulfate HFA 90 mcg/actuation aerosol inhalerIndications :Mild intermittent asthma without complication,Chron ic diastolic congestive heart failure, NYHA class 3 (CMS/[facility]) Take 2 Puffs by inhalation every 6 hours as needed for Wheezing or Shortness of Breath. 18 Gram 3 09/03/19 25 Active solifenacin (VESICARE) 10 mg Tablet Take 1 Tablet (10 mg) by mouth daily. 90 Tablet 3 09/22/19 25 Active MAGNESIUM ORAL Take by mouth. Active rosuvastatin (CRESTOR) 20 mg tabletIndications: Hyperlipidemia, unspecified hyperlipidemia type TAKE 1 TABLET DAILY AT BEDTIME 100 Tablet 3 10/29/19 25 Active Xarelto 20 mg TabletIndications: History of pulmonary embolism TAKE 1 TABLET DAILY 90 Tablet 3 10/29/19 25 Active ezetimibe (ZETIA) 10 mg tabletIndications: Mixed hyperlipidemia TAKE 1 TABLET DAILY 90 Tablet 3 10/29/19 25 Active hydroCHLOROthiazid e 25 mg tablet Take by mouth daily. Active levothyroxine 100 mcg tabletIndications: Acquired hypothyroidism Take 1 Tablet (100 mcg) by mouth daily. 90 Tablet 1 01/06/20 25 Active mirabegron (Myrbetriq) 50 mg Extended Release 24 hour tabletIndications: Overactive bladder Take 1 Tablet (50 mg) by mouth daily. 90 Tablet 3 01/06/20 25 Active methenamine hippurate (HIPREX) 1 gram TabletIndications: Overactive bladder TAKE 1 TABLET TWICE A DAY WITH VITAMIN C 500 MG TWICE A DAY 180 Tablet 3 02/08/20 25 Active celecoxib (CeleBREX) 200 mg capsuleIndications :Primary osteoarthritis involving multiple joints TAKE 1 CAPSULE TWICE A DAY 180 Capsule 1 02/08/20 25 Active nitrofurantoin (MACROBID) 100 mg capsuleIndications :Frequent UTI Take 1 Capsule (100 mg) by mouth 2 times daily for 5 days. 10 Capsule 04/13/20 25 025 Active furosemide (Lasix) 20 mg tabletIndications: Chronic diastolic congestive heart failure, NYHA class 3 (CMS/HCC),Peripher al edema Take 1 Tablet (20 mg) by mouth daily for 5 days. 5 Tablet 04/13/20 25 025 Active sulfamethoxazole-t rimethoprim (BACTRIM DS) 800-160 mg tabletIndications: Recurrent UTI,Cellulitis of left lower extremity Take 1 Tablet by mouth 2 times daily for 7 days. 14 Tablet 03/15/20 25 025 Discontinu ed(Lab Value) nitrofurantoin (MACROBID) 100 mg capsule Take 1 Capsule (100 mg) by mouth 2 times daily for 7 days. 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 hout current pathological fracture 06/08/2024 Vitamin D deficiency 01/14/2022 Status post total right knee replacement - 022 12/25/2021 Permanent atrial fibrillation 08/14/2021 Overview (08/14/2021): [id number] Moderate-High Risk 5 Total Score 1 Hypertension Hx 1 Heart Failure Hx 1 Female 2 Age On chronic anticoagulation Chronic UTI (urinary tract infection) 04/26/2018 Chronic diastolic congestive heart failure, NYHA class 3 02/25/2017 Personal history of colonic polyps 03/18/2016 Pincer nail deformity 10/10/2015 Essential hypertension 04/06/2015 History of pulmonary embolism 04/06/2015 Nocturnal hypoxemia due to asthma 04/06/2015 Overview (11/19/2022): Overnight oximetry June 2013 lowest desaturation 83%. 14% of the time less than or equal to 88% saturation Cystocele 01/13/2012 Personal history of DVT (deep vein thrombosis) 0 10/04/2011 Peripheral edema 10/02/2011 Venous stasis 01/28/2011 Lumbosacral spondylosis without myelopathy 05/15 Lumbar spinal stenosis 05/15/2010 Facet syndrome 05/15/2010 Overactive bladder 02/11/2009 Environmental allergies 05/21/2008 Primary osteoarthritis involving multiple joints 05/21/2008 Acquired hypothyroidism 05/21/2008 Mild intermittent asthma 05/21/2008 Hyperlipidemia 05/21/2008 Resolved Problems Problem Noted Date Diagnosed Date Resolved Date COVID-19 virus detected 03/02/2022 02/0 09/2024 Hypokalemia 03/02/2022 06/08/2024 Preoperative general physical examination 12/25/2021 05/28/2023 Personal history of DVT (abdias p vein thrombosis) 02/25/2017 02/25/2017 Toenail fungus 10/10/2015 11/07/2017 Acute pulmonary embolism 10/02/201108/2014 Hyperkalemia 10/02/2011 11/07/2017 Elevated blood pressure 10/02/2011 07/0 11/2017 Cystocele, midline 07/17/2010 1 Rectocele 07/17/2010 07/18/2010 Uterine prolapse without men tion of vaginal wall prolapse 06/27/2010 07/18/2010 LBP (low back pain) 05/15/2010 11/08/19 18 Right hip pain 03/04/2009 11/07/2017 Overview (08/29/2020): Most consistent with trochanteric bursitis Obesity 05/21/2008 11/07/2017 Constipation 05/21/2008 10/29/2010 Encounters Date Type Department Care Team Description 04/13/2025 1:[address] CLERK Office Visit [address] [phone] Aroldo Guerra DO Frequent UTI (Primary Dx); Frail elderly; Chronic diastolic congestive heart failure, NYHA class 3 (CMS/HCC); Peripheral edema; Stasis dermatitis 03/17/2025 Results Follow-Up [facility] [address] [phone] Stephania Gray FNP POC URINALYSIS DIPSTICK AUTOMATED, URINE CULTURE 03/15/2025 10:[address] CLERK Office Visit [facility] [address] [phone] Stephania Gray FNP Recurrent UTI (Primary Dx); Chronic UTI (urinary tract infection); Cellulitis of left lower extremity; Frail elderly; Need for immunization against influenza 03/14/2025 Nurse Triage [facility] [address] [phone] Aroldo Guerra DO 02/07/[address] [phone] Stephania Gray FNP Primary osteoarthritis involving multiple joints 02/07/2025 Refill [facility] Urology [address] [place] [phone] Keisha Henao PA Overactive bladder (Primary Dx) 01/24/2025 External Device Data STL ABSTRACTION Provider, Abstract 01/16/2025 Medication Prior Auth Encounter [facility] Prescription Management Dept [address] [place] [address] [place] [phone] Tarsha Ramirez, PHARMACIST 01/16/2025 Medication Prior Auth Encounter [facility] Prescription Management Dept [address] [place] [address] [place] [phone] Elayne Vega, PHARMACIST 01/13/2025 Medication Prior Auth Encounter [facility] Prescription Management Dept [address] [place] [address] [place] [phone] Tarsha Ramirez, PHARMACIST from Last 3 Months Immunizations Immunization Administration Dates Next Due (PFIZER)(12 YR UP) COVID-19 VACCINE - EMERGENCY USE AUTHORIZATION, MRNA, [id number](PF) 30 MCG/0.3 ML IM SUSP 07/23/2020,07/02/2020 (PNEUMOVAX 23)(50 YRS UP) PN EUMOCOCCAL POLYSACCHARIDE (PPV23) 0.5 ML, IM 03/09/2019,03/22/2013,10/27/2005 (PREVNAR 20)(6 WKS UP) PNEUM OCOCCAL CONJUGATE VACCINE 20-VALENT (PCV20), POLYSACCHARIDE [id number] CONJUGATE, ADJUVANT 0.5 ML (PF) IM 10/05/2024(Deferred: Patient left) INFLUENZA VACCINE HIGH DOSE QUADRIVALENT 65 YR UP PF IM 05/28/2023,03/19/2021,02/22/2020 INFLUENZA VACCINE HIGH DOSE TRIVALENT SPLIT VIRUS, (65 YR UP), 0.5ML (PF), IM 03/15/2025,02/25/2024 INFLUENZA VACCINE QUADRIVALE NT 6 MOS UP PF IM 04/24/2021 INFLUENZA VACCINE QUADRIVALE NT ADJ 65 YR UP PF IM 03/28/2022 Influenza Seasonal Unspecifi ed Formulation IM 03/18/2018,02/10/2013,01/29/2010,04/06,03/03/2005,02/23/2004 Influenza Vaccine High Dose 65+ Yrs IM 9,03/12/2015 Influenza Vaccine Quad Split 3+ Yrs Im 7,04/12/2014 Influenza Vaccine Split 3+ Yrs IM 2012,02/12/2012,02/05/2011,04/11 Influenza Vaccine Split 3+ Yrs PF IM 02/12/2016 Skin Test TB 12/01/2023 Family History Medical History Relation Name Comments Breast Cancer Daughter 1 Beronica No Known Problems Daughter 2 Carlos A Heart Disease Father Mignon Mathur Alzheimer's Disease Mother Other Son 1 Clement Fibromyalgia No Known Problems Son 2 Sherman No Known Problems Son 3 Alonzo COPD Son 4 Leno Colon Cancer Neg Hx Ovarian Cancer Neg Hx Relation Name Status Comments Daughter 1 Beronica Alive Daughter 2 Carlos A Alive Father Mignon Mathur Mother Son 1 Clement Alive Son 2 Sherman Alive Son 3 Alonzo Alive Son 4 Leno Alive Social History Tobacco Use Types Packs/Day Years Used Date Smoking Tobacco: Never Passive Smoke Exposure: Never Smokeless Tobacco: Never Tobacco Cessation:Counseling Given: No Alcohol Use Standard Drinks/Week Comments No 0 (1 standard drink = 0.6 oz pur e alcohol) Comments No Sex and Gender Information Value Date Recorded Sex Assigned at Female 02/22/2024 5:48 PM CDT Legal Sex Female 4:[address]ERK Gender Identity Not on file Sexual Orientation Not on file Last Filed Vital Signs Vital Sign Reading Time Taken Comments Blood Pressure 128/74 04/13/2025 1:[address] CLERK Pulse 102 04/13/2025 1:[address] CLERK Temperature 36.4 C (97.5 F) 04/13/2025 1:[address] CLERK Respiratory Rate 18 04/13/2025 1:[address] CLERK Oxygen Saturation 95% 04/13/2025 1:[address] CLERK Room Air Inhaled Oxygen Concentration - - Weight 90.2 kg (198 lb 12.8 oz) 04/13/2025 1:[address] CLERK Height 172.7 cm (5' 8 ) 04/13/2025 1:[address] CLERK Body Mass Index 30.23 04/13/2025 1:[address] CLERK Plan of Treatment Upcoming Encounters Date Type Department Care Team (Late st Contact Info) Description 04/20/2025 3:[address] CLERK Office Visit [facility] Medicine [place] [address] [place] [phone] Stephania Gray, [facility] [address] [place] [phone] 09/20/2025 2:30 PM CDT Telephone Check Up [facility] Urology [place] [address] [facility] [address] [place] [phone] Keisha Henao PA [address] [phone] 11/21/2025 10:20 AM CDT Office Visit [facility] Cardiology [facility] [address] [facility] [address] [place] [address] Chester Hicks MD [address] [facility] [address] [place] [address] August Arnoldjames Salcido, [facility] [address] [place] [address] Health Maintenance Due Date Last Done Comments DTAP/TDAP/TD VACCINES (1 - Tdap) 1957 ZOSTER VACCINE (1 of 2) 1988 OSTEOPOROSIS SCREENING 08/05/2003 RSV VACCINE (60+ or ) (1 - 1-dose 75+ series) 2013 COLORECTAL SCREENING 03/18/2019 03/18/2016, 03/18/2016, 05/29/2010, Additional history exists PNEUMOCOCCAL VACCINE 50+ YEA RS (2 of 2 - PCV) 03/09/2020 03/09/2019, 03/22/2013, 10/27/2005 COVID-19 Vaccine (2024-2 6 season) 2025 03/15/2021, 07/23/2020, 07/02/2020 Traditional Medicare (ACO) A nnual Wellness Visit 01/06/2026 01/05/2025, 12/10/2023, 12/25/2022 INFLUENZA VACCINE Completed 03/15/2025, , 05/28/2023, Additional history exists Medical Devices Implanted Type Area Bellmaker Device Identifier Shelf Expiration Date Model / Serial / Lot Cement Palacos Mv+G 40gm Md Viscosity [id number] - [id number] Implanted:Qty: 1 on 01/02/2022 by Leno Buchanan MD at [facility] Cement Right: Knee [employer] [id number] 06/03/2025 [id number] / / [id number] Cement Palacos Mv+G 40gm Md Viscosity [id number] - [id number] Implanted:Qty: 1 on 01/02/2022 by Leno Buchanan MD at [facility] Cement Right: Knee [employer] [id number] 06/03/2025 [id number] / / [id number] Insert Attune Fb Cr Sz5 6mm 1516-20-506 - [id number] Implanted:Qty: 1 on 01/02/2022 by Leno Buchanan MD at [facility] Knee Right: Knee [employer] [id number] 04/02/2026 [id number] / / [id number] Comp Fem Attune Cr Sz 5 Rt Cmntd 1504-00-205 - [id number] Implanted:Qty: 1 on 01/02/2022 by Leno Buchanan MD at [facility] Knee Right: Knee [employer] [id number] 08/02/2031 [id number] / / [id number] Comp Tib Attune Fb Cmnt Sz5 1506-70-005 - [id number] Implanted:Qty: 1 on 01/02/2022 by Leno Buchanan MD at [facility] Knee Right: Knee [employer] [id number] 11/01/2031 [id number] / / [id number] Sling Transvag Adv Fit Sgl 850-211 - [id number] Implanted:Qty: 1 on 04/21/2012 by Beronica Clark MD Sling N/A: Vagina 02/01/2015 850-211 / / [id number] Procedures Procedure Name Priority Date/Time Associated Diagnosis Comments POC URINALYSIS DIPSTICK AUTOMATED Routine 04/13/2025 1:[address] CLERK Frequent UTI URINE CULTURE Routine 03/15/2025 10:[address] CLERK Recurrent UTI POC URINALYSIS DIPSTICK AUTOMATED Routine 03/15/2025 10:[address] CLERK Recurrent UTI Chronic UTI (urinary tract infection) from Last 3 Months Results * (ABNORMAL) POC URINALYSIS DIPSTICK AUTOMATED (04/13/2025 1:[address] CLERK) Only the most recent of2 resultswithin the time period is included. COLOR UA POC Dark Yellow Pale to Dark Yellow [facility] CLARITY UA POC Cloudy(A) Clear, Other [facility] GLUCOSE UA POC Negative Negative, Normal [facility] BILIRUBIN UA POC Negative Negative [facility] KETONES UA POC Trace(A) Negative [facility] SPECIFIC GRAVITY UA POC 1.025 1.000 - 1.030 [facility] BLOOD UA POC Negative Negative [facility] Nicki LINIC [facility] PH UA POC 5.5 5.0 - 8.[address] [facility] CLIN IC [facility] PROTEIN UA POC Negative Negative [facility] UROBILINOGEN UA POC 4.0(A) <2.0 mg/dL [facility] NITRITE UA POC Positive(A) Negative [facility] LEUKOCYTE ESTERASE UA POC Negative Negative [facility] KIT LOT NUMBER POC [id number] [facility] KIT EXP DATE POC [id number] [facility] Urine 04/13/2025 1:[address] CLERK Aroldo Guerra DO POINT OF CARE TESTING Final R esult [facility] CLIA# [id number] [address] [place] [address] * (ABNORMAL) URINE CULTURE (03/15/2025 10:[address] CLERK) URINE CULTURE SEE NOTE(A) [facility] Comment: CULTURE, URINE, ROUTINE Micro Number: [id number] Test Status: Final Specimen Source: Urine, clean catch Specimen Quality: Adequate Result: Greater than 100,000 CFU/mL of Escherichia coli E.coli INT CHARISSE AMOX/CLAVULANATE R >=32 AMP/SULBACTAM R >=32 CEFAZOLIN R >=32 1 CEFEPIME I 8 CEFTAZIDIME S <=0.5 CEFTRIAXONE R 32 CIPROFLOXACIN R >=4 GENTAMICIN S <=1 IMIPENEM S <=0.25 LEVOFLOXACIN R >=8 MEROPENEM S <=0.25 NITROFURANTOIN S 32 PIP/TAZOBACTAM S 8 TRIMETHOPRIM/SULFA R >=320 S = Susceptible I = Intermediate R = Resistant NS = Not susceptible SDD = Susceptible Dose Dependent * = Not Tested NR = Not Reported NN = See Therapy Comments THERAPY COMMENTS Note 1: For uncomplicated UTI caused by E. coli, K. pneumoniae or P. mirabilis: Cefazolin is susceptible if CHARISSE <32 mcg/mL and predicts susceptible to the oral agents cefaclor, cefdinir, cefpodoxime, cefprozil, cefuroxime, cephalexin and loracarbef. Test Performed at: [facility] [address] [facility] [place] [address] Marianne Dong MD Urine URINE SPECIMEN OBTAINED BY CLEAN CATCH PROCEDURE / Unknown 03/15/2025 10:[address] CLERK 03/16/2025 1:[address] CLERK Stephania Gray OFFC SPEC MICROBIOLOGY - GENERAL ORDERA BLES Final Result [facility] [phone] [facility] [address] [facility] [place] [phone] from Last 3 Months Additional Health Concerns Infection Onset Date Last Indicated [employer]ON [employer] BENDER 09/04/2022 09/09/2022 Insurance MEDICARE PART A AND B [employer] Advance Directives For more information, please contact: [phone] * Full Code (Latest Code Status on File) Date Activated Date Inactivated Comments 03/02/2022 7:05 PM 03/04/2022 4:59 PM * Full Code Date Activated Date Inactivated Comments 01/03/2022 4:21 PM 01/11/2022 2:22 PM * Full Code Date Activated Date Inactivated Comments 01/02/2022 4:00 PM 01/03/2022 2:49 PM Care Teams Counter Cutter Relationship Specialty Start Date End Date Aroldo Guerra DO [address] [place] [phone] PCP - General Family Practice 12/09/23
--- OUTSIDE RECORDS SUMMARY | 2025-04-14 00:40 | XMS_ITS | Encounter Summary ---
Author Organization [facility] Address [address] [place] [address] Care Team Providers Care Tennis Instructor Name Role Phone Kwaku Guerra MD Primary Care Provider [phone] Encounter Details Date Type Department Care Team (Latest Contact Info) Description 06/09/2005 Outpatient Historical [facility] Imaging Services [address] [place] [phone] Harriet Amado MD [address] [place] [phone] CERVICALGIA (Primary Dx) Social History Tobacco Use Types Packs/Day Years Used Date Smoking Tobacco: Never Assessed Comments Unknown Sex and Gender Information Value Date Recorded Sex Assigned at Not on file Legal Sex Female 5:00 AM CHICKEN STUFFER Gender Identity Not on file Sexual Orientation Not on file documented as of this encounter Plan of Treatment Not on file documented as of this encounter Visit Diagnoses Diagnosis Cervicalgia- Primary documented in this encounter Care Teams Tennis Instructor Relationship Specialty Start Date End Date Kwaku Guerra MD [address] [place] [phone] PCP - General Family Practice 11/16/14 documented as of this encounter
--- NOTE | 2025-04-14 00:43 | XRR_ITS ---
PROCEDURE INFORMATION: Exam: XR Chest Exam date and time: 04/14/2025 12:59 AM Age: 84 years old Clinical indication: Shortness of breath TECHNIQUE: Imaging protocol: Radiologic exam of the chest. Views: 1 view. COMPARISON: No relevant prior studies available. FINDINGS: Lungs: No CHF/pulmonary edema. There is a 2.5 cm area of parenchymal opacity in the lateral right lower lobe. This suspicious for an area of focal pneumonia. Please correlate clinically. Follow up to complete resolution is recommended to guard against any other underlying pathology/mass. Visible lungs otherwise appear essentially clear. Pleural spaces: No visible pneumothorax. No definite pleural fluid. Heart/Mediastinum: Mild cardiomegaly. Bones/joints: Moderate to severe degenerative changes involve the shoulders, greater on the right. XR/XR chest 1V portable [id number] IMPRESSION: 1. Suspicion for area of right lower lobe pneumonia, see above discussion. 2. No definite CHF/pulmonary edema. 3. Other findings discussed above.
--- NOTE | 2025-04-14 00:44 | ECG_ITS ---
[facility]: 2025-04[facility]14 Pat Name: Lori Salinas Department: Room: Gender: Female Cabinet Installer: : 1940 Requested By: Yarelis Eisenberg Order Number: [id number] Reading MD: RAMESH CHEW Measurements Intervals [place] Rate: 97 P: 0 CA: 0 QRS: 24 QRSD: 99 T: 28 QT: 313 QTc: 399 Interpretive Statements ATRIAL FIBRILLATION NONSPECIFIC ST & T-WAVE ABNORMALITY ABNORMAL RHYTHM ECG No previous ECG available for comparison Electronically Signed On 04-14-2025 18:30:08 SOUND DESIGNER by RAMESH CHEW [email or web address]
--- NOTE | 2025-04-14 00:44 | W.ED.GENADLT ---
HPI - General Adult General: Chief complaint: Shortness of Breath/Dyspnea Stated complaint: SOB Time Seen by Provider: 04/14/25 00:35 History of Present Illness: Patient is an 84-year-old female with past medical history of DVT/PE, CHF, atrial fibrillation on Xarelto 20mg daily presents with a chief complaint of shortness of breath for the past 2 hours. Patient states that she has also experienced some fluttering of the heart but denies current chest pain, exertional chest pain at home. Patient states she has not had a fever. She has had a dry cough but no hemoptysis or productive cough. Patient denies syncope. She states that for the past 1 month, she has had swelling of the left lower extremity and is concerned about a DVT. She states she has a history of DVT in the left leg. Patient denies abdominal pain, nausea or vomiting but has been experiencing dysuria for several weeks, she was seen by PCP today for that and prescribed Macrobid. No change in bowel habits. Patient reports compliance with Xarelto. Related Data Home Medications ?Medication ?Instructions ?Recorded ?Confirmed atorvastatin 10 mg tablet (Lipitor) 10 mg PO DAILY 03/01/22 05/02/23 cetirizine 10 mg capsule (Zyrtec) 10 mg PO DAILY PRN 03/01/22 05/02/23 rivaroxaban 15 mg tablet (Xarelto) 15 mg PO DAILY 03/01/22 05/02/23 Previous Rx's ?Medication ?Instructions ?Recorded nitrofurantoin macrocrystal 100 mg 100 mg PO BID 7 days #14 caps 05/02/23 capsule hydrocodone 5 mg-acetaminophen 325 1 tab PO Q8H PRN pain #14 tabs 10/15/24 mg tablet amoxicillin 875 mg-potassium 1 tab PO BID 5 days #10 tabs 04/14/25 clavulanate 125 mg tablet azithromycin 250 mg tablet See Rx Instructions PO .COMPLEX #6 04/14/25 tabs Allergies Allergy/AdvReac Type Severity Reaction Status Date / Time No Known Allergies Allergy Verified 04/14/25 00:39 [facility] ED PFSH: Social History Smoking and tobacco/nicotine status: never used tobacco/nicotine Physical Exam Narrative: EXAM NARRATIVE: Vital signs were reviewed. Patient is alert and oriented. Patient is breathing comfortably, no increased WOB or accessory muscle use. SpO2 is above 95% on RA. Patient has clear lungs b/l, no rhonchi. +Mild crackles in the lung bases. No hypotension or tachycardia. Abdomen is soft, nondistended and nontender. Patient is moving all extremities, no deformity or gross injury. LLE swelling. Course Vital Signs: Vital signs: Vital Signs Temperature 97.5 F L 04/14/25 00:33 Pulse Rate 89 04/14/25 02:21 Respiratory Rate 16 04/14/25 00:33 Blood Pressure 113/64 04/14/25 02:21 Pulse Oximetry 91 04/14/25 02:21 [facility] - General Adult Medical Decision Making 84-year-old female presents with a chief complaint of shortness of breath, palpitations for 2 hours. It is suspected she has a history of atrial fibrillation given that she has a history of CHF and is on Xarelto. She is also complaining of left lower extremity swelling for 1 month, is concerned she has a DVT. Differential diagnosis includes, not limited to, viral upper respiratory infection, bronchitis, pneumonia, COPD exacerbation, DVT/PE, CHF, cardiac ischemia, other. On initial exam she is hemodynamically stable. Patient was evaluated with CBC, CMP, procalcitonin, troponin, BNP, D-dimer, COVID and flu screen, chest x-ray, EKG and ultrasound of the left lower extremity. Patient has a normal white blood cell count and is not anemic. Procalcitonin is elevated. UA does not show evidence of infection and patient does not have flu or COVID. Patient has mildly decreased potassium, replaced orally. Patient has normal kidney function and liver function. Patient has an elevated troponin but negative delta, denies chest pain and there are no ischemic changes on EKG. Chest x-ray shows: IMPRESSION: 1. Suspicion for area of right lower lobe pneumonia, see above discussion. 2. No definite CHF/pulmonary edema. 3. Other findings discussed above. Patient will be prescribed antibiotics for pneumonia. Ultrasound of the left lower extremity does not demonstrated DVT. Additionally, she reports compliance with Xarelto. Although not impossible, my suspicion for complicating pulmonary embolus is low given no presence of DVT, increased work of breathing, hypoxia, hemoptysis and current treatment with Xarelto. Patient was advised on test results and her questions were answered. Patient was advised to follow-up with her primary care physician for repeat chest x-ray, she expressed understanding of the fact that lung nodules and tumors may also present as an opacity on chest x-ray and thus it needs to be confirmed that pneumonia has resolved. At this time she is stable for outpatient management. Patient was counseled on supportive care at home, given return precautions and discharged in stable condition with recommendation for outpatient follow-up with primary care nurse or doctor. Lab Data 04/14/25 00:55 04/14/25 00:55 Radiology Impressions Chest X-Ray 04/14/25 00:43 IMPRESSION: 1. Suspicion for area of right lower lobe pneumonia, see above discussion. 2. No definite CHF/pulmonary edema. 3. Other findings discussed above. Venous Duplex 04/14/25 01:01 IMPRESSION: No evidence of acute left lower extremity DVT. Laboratory Results WBC 5.69 10^3/uL (3.29-11.43) 04/14/25 00:55 RBC 4.49 10^6/uL (3.85-5.65) 04/14/25 00:55 Hgb 14.60 g/dL (11.27-16.99) 04/14/25 00:55 Hct 44.4 % (36-47) 04/14/25 00:55 MCV 98.9 fl (85-98) H 04/14/25 00:55 MCH 32.5 pg (27-33) 04/14/25 00:55 MCHC 32.9 g/dL (30-55) 04/14/25 00:55 RDW 13.3 % (12.1-15.1) 04/14/25 00:55 Plt Count 233 10^3/cmm (157-399) 04/14/25 00:55 MPV 10.5 fL (7.4-10.4) H 04/14/25 00:55 Neut % (Auto) 74.2 % 04/14/25 00:55 Lymph % (Auto) 19.0 % 04/14/25 00:55 Ball[place] % (Auto) 1.6 % 04/14/25 00:55 Eos % (Auto) 4.6 % 04/14/25 00:55 Baso % (Auto) 0.4 % 04/14/25 00:55 Neut # (Auto) 4.23 10^3/uL (1.8-7.7) 04/14/25 00:55 Lymph # (Auto) 1.1 10^3/uL (0.8-4.8) 04/14/25 00:55 [place] # (Auto) 0.1 10^3/uL (0.2-0.9) L 04/14/25 00:55 Eos # (Auto) 0.3 10^3/uL (0.0-0.8) 04/14/25 00:55 Baso # (Auto) 0.0 10^3/uL (0.0-0.1) 04/14/25 00:55 Nucleated RBC % (auto) 0 % 04/14/25 00: Nucleated RBCs # 0.0 /100WBC 04/14/25 00:55 D-Dimer 1.34 ug/mLFEU (0-0.59) H 04/14/25 00:55 Sodium 143 mmol/L (136-145) 04/14/25 00:55 Potassium 3.3 mmol/L (3.5-5.1) L 04/14/25 00:55 Chloride 107 mmol/L (98-107) 04/14/25 00:55 Carbon Dioxide 25 mmol/L (22-29) 04/14/25 00:55 Anion Gap 14.3 (5-19) 04/14/25 00:55 BUN 17 mg/dL (8-23) 04/14/25 00:55 Creatinine 0.6 mg/dL (0.5-0.9) 04/14/25 00:55 GFR Calculation Not Reportable 04/14/25 00:55 Glucose 100 mg/dL (65-115) 04/14/25 00:55 Calculated Osmolality 298 mOsm/kg (285-295) H 04/14/25 00:55 Calcium 9.1 mg/dL (8.5-10.5) 04/14/25 00:55 Total Bilirubin 1.4 mg/dL (0.15-1.2) H 04/14/25 00:55 AST 29 U/L (0-32) 04/14/25 00:55 ALT 16 U/L (0-33) 04/14/25 00:55 Alkaline Phosphatase 75 U/L (35-105) 04/14/25 00:55 Troponin T Baseline 15 ng/L (0-10) H 04/14/25 00:55 Troponin T 60 Minute 15.00 ng/L (0-10) H 04/14/25 01:42 Delta Troponin T 0 ABS# (0-10) 04/14/25 01:42 NT-Pro-B Natriuret Pep 475 pg/mL (0-450) H 04/14/25 00:55 Total Protein 6.3 g/dL (6.6-8.7) L 04/14/25 00:55 Albumin 3.6 g/dL (3.5-5.2) 04/14/25 00:55 Globulin 2.7 g/dL (1.3-4.6) 04/14/25 00:55 Procalcitonin 0.52 ng/mL (0-0.5) H 04/14/25 00:55 Urine Color Yellow (Yellow) 04/14/25 01:07 Urine Appearance Clear (CLEAR) 04/14/25 01:07 Urine pH 5.5 (5-7) 04/14/25 01:07 Ur Specific [place] 1.009 (1.005-1.030) 04/14/25 01:07 Urine Protein Negative (Negative) 04/14/25 01:07 Urine Glucose (UA) Negative (Normal) 04/14/25 01:07 Urine Ketones Negative (Negative) 04/14/25 01:07 Urine Blood Negative (Negative) 04/14/25 01:07 Urine Nitrate Negative (Negative) 04/14/25 01:07 Urine Bilirubin Negative (Negative) 04/14/25 01:07 Urine Urobilinogen 1.0 mg/dL (Negative) 04/14/25 01:07 Ur Leukocyte Esterase Negative (Negative) 04/14/25 01:07 Urine RBC 0-2 /hpf (0-2) 04/14/25 01:07 Urine WBC 0-5 /hpf (0-5) 04/14/25 01:07 Ur Squamous Epith Cells 0-5 /hpf (0-5) 04/14/25 01:07 Amorphous Sediment Not Reportable 04/14/25 01:07 Urine Bacteria None seen /hpf (NONE) 04/14/25 01:07 Hyaline Casts 1.21 /lpf 04/14/25 01:07 Influenza A (PCR) Negative (Negative) 04/14/25 01:48 Influenza Type B (PCR) Negative (Negative) 04/14/25 01:48 RSV (PCR) Negative (Negative) 04/14/25 01:48 SARS-CoV-2 (PCR) Negative (Negative) 04/14/25 01:48 All radiology interpretation(s) finalized by discharge EKG Data EKG 1: Interpretation: Atrial fibrillation with a heart rate of 97, normal axis, normal QT/QTc, narrow complex, no STEMI. Computer generated interpretation: Chest X-Ray 04/14/25 00:43 IMPRESSION: 1. Suspicion for area of right lower lobe pneumonia, see above discussion. 2. No definite CHF/pulmonary edema. 3. Other findings discussed above. Venous Duplex 04/14/25 01:01 IMPRESSION: No evidence of acute left lower extremity DVT. Discharge Plan Discharge Patient Disposition: Home Clinical Impression: Breath shortness, Chronic anticoagulation, Left leg swelling, Acute hypokalemia Community acquired pneumonia Qualifiers: Laterality: right Lung location: lower lobe of lung Qualified Code(s): J18.9 - Pneumonia, unspecified organism Condition: Stable Prescriptions: New amoxicillin-pot clavulanate 875-125 mg tablet 1 tab PO BID 5 Days Qty: 10 0RF azithromycin 250 mg tablet See Rx Instructions .ROUTE .COMPLEX Qty: 6 0RF Rx Instructions: For 250 mg dose pack: take 500 mg today (day 1), then 250 mg for 4 days (days 2-5) No Action Zyrtec 10 mg capsule 10 mg PO DAILY PRN Xarelto 15 mg tablet 15 mg PO DAILY Rx Instructions: must administer with evening meal atorvastatin [Lipitor] 10 mg tablet 10 mg PO DAILY nitrofurantoin macrocrystal 100 mg capsule 100 mg PO BID 7 Days Qty: 14 0RF Rx Instructions: must administer with a meal/food hydrocodone-acetaminophen 5-325 mg tablet 1 tab PO Q8H PRN (Reason: pain) Qty: 14 0RF Rx Instructions: Take 1/2 to 1 tab every 8 hours as needed for pain Discharge Orders: Discharge ED (Routine); Ordered 04/14/25 Ordered By: Yarelis Eisenberg Referrals: Kwaku Guerra [Primary Care Provider, Family Practice] Patient Instructions: Opioid Safety, Pain Management, Patient Portal & Lianet Instructions, Community Acquired Pneumonia (DC), Hypokalemia Activity Restrictions/Additional Instructions: Please start antibiotics as prescribed. Additionally, note that your potassium was a little low today, increase intake of potassium rich foods. Continue to monitor your condition very closely at home. If your condition worsens or additional concerns arise, please return to the emergency department for reassessment. Otherwise, please follow-up with your primary care physician within 1 week. Note that you will need a repeat chest x-ray in 4 to 6 weeks to ensure that abnormality on your chest x-ray has resolved. If it does not, it is recommended to get a follow-up CT scan to ensure it is not a more dangerous process such as a lung cancer. Print Language: Tuvaluan Coding Level of Care Code ED Charging Car Operator for Abhinav Muniz
--- NOTE | 2025-04-14 01:01 | USR_ITS ---
PROCEDURE INFORMATION: Exam: US Duplex Left Lower Extremity Veins, Limited Exam date and time: 04/14/2025 1:17 AM Age: 84 years old Clinical indication: Edema, localized; Lower extremity, left; Additional info: Leg swelling TECHNIQUE: Imaging protocol: Real-time duplex ultrasound of the left extremity with 2-D ragland scale, color Doppler flow and spectral waveform analysis including responses to compression and other maneuvers (when performed) with image documentation. Limited exam focused on the left lower extremity veins. COMPARISON: No relevant prior studies available. FINDINGS: Evaluated veins include the left common femoral, proximal profunda femoral, proximal/mid/distal superficial femoral, popliteal, posterior tibial, peroneal, and proximal greater saphenous veins. No visible clot in the included veins. The included veins appear normally compressible. Duplex Doppler evaluation demonstrates flow in the evaluated veins. US/CV venous duplex [facility] [id number] IMPRESSION: No evidence of acute left lower extremity DVT.
[2025-04-14 01:09] LABS: Hematocrit 44.4 % (36-47); Hemoglobin 14.60 g/dL (11.27-16.99); Mean Corpuscular HGB Conc 32.9 g/dL (30-55); Mean Corpuscular Hemoglobin 32.5 pg (27-33); Mean Corpuscular Volume 98.9 fl (85-98); Nucleated Red Blood Cells % 0 %; Platelet Count 233 10^3/cmm (157-399); Red Blood Count 4.49 10^6/uL (3.85-5.65); White Blood Count 5.69 10^3/uL (3.29-11.43)
[2025-04-14 01:15] LABS: Glucose Urine UA Negative (Normal); Nitrate Urine Negative (Negative); Specific Gravity, Urine 1.009 (1.005-1.030)
[2025-04-14 01:20] LABS: Add Urine Microscopic? YES
[2025-04-14 01:31] LABS: Troponin(5th) Baseline 15 ng/L (0-10)
[2025-04-14 01:40] LABS: NT Pro B Type Natriuretic Pept 475 pg/mL (0-450); Procalcitonin 0.52 ng/mL (0-0.5)
[2025-04-14 01:52] LABS: Alanine Aminotransferase 16 U/L (0-33); Albumin Level 3.6 g/dL (3.5-5.2); Alkaline Phosphatase 75 U/L (35-105); Anion Gap 14.3 (5-19); Aspartate Amino Transferase 29 U/L (0-32); Blood Urea Nitrogen 17 mg/dL (8-23); Calcium 9.1 mg/dL (8.5-10.5); Carbon Dioxide 25 mmol/L (22-29); Chloride 107 mmol/L (98-107); Globulin 2.7 g/dL (1.3-4.6); Glucose 100 mg/dL (65-115); Osmolality Calculated 298 mOsm/kg (285-295); Potassium 3.3 mmol/L (3.5-5.1); Sodium 143 mmol/L (136-145); Total Protein 6.3 g/dL (6.6-8.7)
--- NOTE | 2025-04-14 02:11 | ECG_ITS ---
[facility] Test Date: 2025-04-14 Pat Name: Lori Salinas Department: Room: Gender: Female Strip Machine Operator: : 1940 Requested By: Yarelis Eisenberg Order Number: [id number] Reading MD: RAMESH CHEW Measurements Intervals [place] Rate: 96 P: 0 OR: 0 QRS: 19 QRSD: 104 T: -25 QT: 293 QTc: 372 Interpretive Statements ATRIAL FIBRILLATION NONSPECIFIC T-WAVE ABNORMALITY ABNORMAL RHYTHM ECG Compared to ECG 04/14/2025 00:40:08 No significant changes Electronically Signed On 04-14-2025 18:36:00 CYBER SECURITY by RAMESH CHEW [email or web address]
[2025-04-14 02:21] VITALS: BP 113/64; PULSE 89; O2SAT 91
[2025-04-14 03:01] LABS: Respiratory Syncytial Virus Ce NEGATIVE (Negative); SARS-CoV-2 PCR NEGATIVE (Negative)
[2025-04-14 03:35] VITALS: BP 136/63; PULSE 93; O2SAT 93
[2025-04-14 04:25] VITALS: BP 100/70; PULSE 89; O2SAT 94
== END 2025-04-14 04:26 | disposition home or self-care (01) ==
PROVIDERS: Emergency Provider Emergency Medicine; PCP Family Medicine
DX: R06.02 Shortness of breath (principal); Z79.01 Long term (current) use of anticoagulants; R60.0 Localized edema; E87.6 Hypokalemia; J18.9 Pneumonia, unspecified organism; Z11.52 Encounter for screening for COVID-19; I50.9 Heart failure, unspecified
CPT/HCPCS: 36415; 71045; 80053; 81001; 83880; 84145; 84484; 85025; 85378; 87637; 93005; 93971; 99285; J9999

== ENCOUNTER 2025-04-20 09:03 | Emergency (ER) | payer MEDICARE, OTHER, SELFPAY ==
[2025-04-20 09:10] VITALS: BP 143/83; PULSE 94; RESP 22; TEMP 36.5; O2SAT 96; BMI 30.1
--- NOTE | 2025-04-20 09:14 | ECG_ITS ---
[email or web address] Test Date: 2025-04-20 Pat Name: Lori Salinas Department: Room: Gender: Female Shine Worker: : 1940 Requested By: Eliseo Kim Order Number: [id number] Reading MD: Measurements Intervals [place] Rate: 107 P: 0 MO: 0 QRS: 77 QRSD: 97 T: 69 QT: 339 QTc: 453 Interpretive Statements ATRIAL FIBRILLATION WITH RAPID VENTRICULAR RESPONSE MODERATE ST DEPRESSION [0.05+ mV ST DEPRESSION] No previous ECG available for comparison [email or web address]
--- OUTSIDE RECORDS SUMMARY | 2025-04-20 09:24 | XMS_ITS | Clinical Summary ---
Author Organization [facility] Address [address] [place] [address] Care Team Providers Care Flame Annealing Machine Setter Name Role Phone Kwaku Guerra MD Primary Care Provider [phone] Allergies Active Allergy Reactions Criticality Noted Date [...] COVID-19 VACCINE - EMERGENCY USE AUTHORIZATION, MRNA, [id number](PF) 30 MCG/0.3 ML IM SUSP 07/23/2020,07/02/2020 (PNEUMOVAX [...] on file Legal Sex Female 5:00 AM MARKET ANALYSIS DIRECTOR Gender Identity Not on file Sexual [...] history exists Medical Devices Implanted Type Area Plating Tank Operator Apprentice Device Identifier Shelf Expiration Date Model / Serial / Lot Sling Transvag Adv Fit Sgl 850-211 - [id number] Implanted:Qty: 1 on 04/21/2012 by Beronica Clark MD at [facility] Sling N/A: Vagina 02/01/2015 850-211 / / [id number] Procedures Procedure Name Priority Date/Time Associated Diagnosis Comments ENDOSCOPY, COLON, SCREENING Routine 03/18/2016 2:23 PM MARKET ANALYSIS DIRECTOR History of colon polyps from Last 3 Months or Most Recently Relevant to Health Maintenance Results * ENDOSCOPY, COLON, MEDICARE SCREENING (05/08/2008) Rm Jean-Baptiste MD GI PROCEDURE ORDERABLES Fin al Result from Last 3 Months or Most Recently Relevant to Health Maintenance Insurance MEDICARE PART A AND B Jingdong Advance Directives For more information, please contact: [phone] * Full Code (Latest Code Status on [...] 12:15 PM 04/21/2012 6:59 PM Care Teams Flame Annealing Machine Setter Relationship Specialty Start Date End Date Kwaku Guerra MD [address] [place] [phone] PCP - General Family Practice 11/16/14
--- OUTSIDE RECORDS SUMMARY | 2025-04-20 09:25 | XMS_ITS | Encounter Summary ---
Author Organization [facility] Address [address] [place] [address] Care Team Providers Care Head Inspector Name Role Phone Kwaku Guerra MD Primary Care Provider [phone] Encounter Details Date Type Department Care Team (Latest Contact Info) Description 09/03/2004 Outpatient Historical [facility] Medicine [place] [address] [place] [phone] Harriet Amado MD [address] [place] [phone] ARTHROPATHY NOS-UNSPEC (Primary Dx); Other lymphedema Social History Tobacco Use Types Packs/Day Years Used Date Smoking Tobacco: Never Assessed Comments Unknown Sex and Gender Information Value Date Recorded Sex Assigned at Not on file Legal Sex Female 5:00 AM VICE PRESIDENT FOR PHILANTHROPY Gender Identity Not on file Sexual Orientation Not on file documented as of this encounter Plan of Treatment Not on file documented as of this encounter Visit Diagnoses Diagnosis Arthropathy, unspecified, site unspecified- Primary Other lymphedema Other noninfectious lymphedema documented in this encounter Care Teams Head Inspector Relationship Specialty Start Date End Date Kwaku Guerra MD [address] [place] [phone] PCP - General Family Practice 11/16/14 documented as of this encounter
--- OUTSIDE RECORDS SUMMARY | 2025-04-20 09:27 | XMS_ITS | Encounter Summary ---
Author Organization [facility] Address [address] [place] [address] Care Team Providers Care Potato Chip Packaging Machine Operator Name Role Phone Kwaku Guerra MD Primary Care Provider [phone] Encounter Details Date Type Department Care Team (Latest Contact Info) Description 06/21/2004 Outpatient [facility] Podiatry[facility] Steven [address] [place] [address] Octavio Samuels, DPM NO ADDRESS ON FILE LOCAL SKIN INFECTION NOS (Primary Dx); INGROWING NAIL Social History Tobacco Use Types Packs/Day Years Used Date Smoking Tobacco: Never Assessed Comments Unknown Sex and Gender Information Value Date Recorded Sex Assigned at Not on file Legal Sex Female 5:00 AM INSTRUMENTAL MUSICIAN Gender Identity Not on file Sexual Orientation Not on file documented as of this encounter Plan of Treatment Not on file documented as of this encounter Visit Diagnoses Diagnosis Unspecified local infection of skin and subcutaneous tissue- Primary Ingrowing nail documented in this encounter Care Teams Potato Chip Packaging Machine Operator Relationship Specialty Start Date End Date Kwaku Guerra MD [address] [place] [address] PCP - General Family Practice 11/16/14 documented as of this encounter
--- OUTSIDE RECORDS SUMMARY | 2025-04-20 09:27 | XMS_ITS | Encounter Summary ---
Author Organization [facility] Address [address] [place] [address] Care Team Providers Care Home Depot Rep Name Role Phone Kwaku Guerra MD Primary Care Provider [phone] Encounter Details Date Type Department Care Team (Latest Contact Info) Description 04/12/2008 Outpatient Historical [facility] Endoscopy [place] [address] [place] [address] Rm Jean-Baptiste MD NO ADDRESS [...] file Legal Sex Female 5:00 AM MANAGER RFID Gender Identity Not on file Sexual Orientation Not on file documented as of this encounter Plan of Treatment Not on file documented as of this encounter Procedures Procedure Name Priority Date/Time Associated Diagnosis Comments PATHOLOGY Routine 05/08/2008 2:35 PM MANAGER RFID documented in this encounter Results * PATHOLOGY (05/08/2008 2:35 PM MANAGER RFID) PATHOLOGY/CYT OLOGY REPORT [facility] [address] [facility] [address] Patient: LORI RUIZ Accn No: [id number] Collected: 05/08/2008 2:35:00 PM SURGICAL PATHOLOGY FINAL [...] B1. DLS/WLS INTERFACE SYSTEM 05/08/2008 2:35 PM MANAGER RFID us Rm Jean-Baptiste MD PATHOLOGY/CYTOLOGY ORDERABL ES [...] agent documented in this encounter Care Teams Home [employer]ot Rep Relationship Specialty Start Date End Date Kwaku Guerra MD [address], [place] [address] PCP - General Family Practice 11/16/14 documented as of this encounter
--- OUTSIDE RECORDS SUMMARY | 2025-04-20 09:27 | XMS_ITS | Encounter Summary ---
Author Organization [facility] Address [address] [place] [address] Care Team Providers Care Distillation Operator Helper Name Role Phone Kwaku Guerra MD Primary Care Provider [phone] Encounter Details Date Type Department Care Team (Late st Contact Info) Description 05/19/2007 Outpatient Historical [facility] Medicine [place] [address] [place] [phone] Stephania Gray, [facility] [address] [place] [phone] Social History Tobacco Use Types Packs/Day Years Used Date Smoking Tobacco: Never Assessed Comments Unknown Sex and Gender Information Value Date Recorded Sex Assigned at Not on file Legal Sex Female 5:00 AM MEDICAL PRACTICE MANAGER Gender Identity Not on file Sexual Orientation Not on file documented as of this encounter Plan of Treatment Not on file documented as of this encounter Visit Diagnoses Not on filedocumented in this encounter Care Teams Distillation Operator Helper Relationship Specialty Start Date End Date Kwaku Guerra MD [address] [place] [phone] PCP - General Family Practice 11/16/14 documented as of this encounter
--- OUTSIDE RECORDS SUMMARY | 2025-04-20 09:27 | XMS_ITS | Encounter Summary ---
Author Organization [facility] Address [address] [place] [address] Care Team Providers Care Vocational Training Instructor Name Role Phone Kwaku Guerra MD Primary Care Provider [phone] Encounter Details Date Type Department Care Team (Late st Contact Info) Description 06/15/2004 Emergency [facility] Emergency Department [address] [place] [phone] Soniya Lo MD [address] [place] [address] VOMITING ALONE (Primary Dx) Social History Tobacco Use Types Packs/Day Years Used Date Smoking Tobacco: Never Assessed Comments Unknown Sex and Gender Information Value Date Recorded Sex Assigned at Not on file Legal Sex Female 5:00 AM AQUACULTURE WORKER Gender Identity Not on file Sexual Orientation Not on file documented as of this encounter Plan of Treatment Not on file documented as of this encounter Procedures Procedure Name Priority Date/Time Associated Diagnosis Comments CBC WITH DIFFERENTIAL Routine 06/15/2004 10:35 AM AQUACULTURE WORKER LIPASE Routine 06/15/2004 10:35 AM AQUACULTURE WORKER AMYLASE Routine 06/15/2004 10:35 AM AQUACULTURE WORKER COMPREHENSIVE METABOLIC PANEL Routine 06/15/2004 10:35 AM AQUACULTURE WORKER documented in this encounter Results * COMPREHENSIVE METABOLIC PANEL (06/15/2004 10:35 AM AQUACULTURE WORKER) GLUCOSE 96 70 - 110 mg/dL INTERFACE [...] mOsm/Kg INTERFACE SYSTEM 06/15/2004 10:3 5 AM AQUACULTURE WORKER Soniya Lo MD CHEMISTRY ORDERABLES Final Result Performing Organization Address [facility] de Phone Number INTERFACE SYSTEM Refer to clinic/hospital department * LIPASE (06/15/2004 10:35 AM AQUACULTURE WORKER) LIPASE 79 23 - 300 IU/L INTERFACE SYSTEM 06/15/2004 10:3 5 AM AQUACULTURE WORKER Soniya Lo MD CHEMISTRY ORDERABLES Final Result Performing Organization Address City/[facility]/ZIP Co de Phone Number INTERFACE SYSTEM Refer to clinic/hospital department * AMYLASE (06/15/2004 10:35 AM AQUACULTURE WORKER) AMYLASE 33 30 - 120 IU/L INTERFACE SYSTEM 06/15/2004 10:3 5 AM AQUACULTURE WORKER us Soniya Lo MD CHEMISTRY ORDERABLES Final Result INTERFACE SYSTEM Refer to clinic/hospital department * (ABNORMAL) CBC WITH DIFFERENTIAL (06/15/2004 10:35 AM AQUACULTURE WORKER) WBC 4.6(L) 4.8 - 10.8 K/ul INTERFACE [...] K/ul INTERFACE SYSTEM 06/15/2004 10:3 5 AM AQUACULTURE WORKER Soniya Lo MD HEMATOLOGY ORDERABLES Irene l Result INTERFACE SYSTEM Refer to clinic/hospital department documented in this encounter Visit Diagnoses Diagnosis Vomiting alone- Primary documented in this encounter Care Teams Vocational Training Instructor Relationship Specialty Start Date End Date Barbe, Kwaku O, MD [address] [place] [phone] PCP - General Family Practice 11/16/14 documented as of this encounter
--- OUTSIDE RECORDS SUMMARY | 2025-04-20 09:28 | XMS_ITS | Encounter Summary ---
Author Organization [facility] Address [address] [place] [address] Care Team Providers Care Perl Software Engineer Name Role Phone Kwaku Guerra MD Primary Care Provider [phone] Encounter Details Date Type Department Care Team (Latest Contact Info) Description 07/05/2004 Outpatient [facility] [place] [address] [place] [address] Octavio Samuels, DPM NO ADDRESS ON FILE Hallux valgus (Primary Dx); EDEMA Social History Tobacco Use Types Packs/Day Years Used Date Smoking Tobacco: Never Assessed Comments Unknown Sex and Gender Information Value Date Recorded Sex Assigned at Not on file Legal Sex Female 5:00 AM PAID SEARCH SPECIALIST Gender Identity Not on file Sexual Orientation Not on file documented as of this encounter Plan of Treatment Not on file documented as of this encounter Visit Diagnoses Diagnosis Hallux valgus- Primary Hallux valgus (acquired) Edema documented in this encounter Care Teams Perl Software Engineer Relationship Specialty Start Date End Date Kwaku Guerra MD [address] [place] [address] PCP - General Family Practice 11/16/14 documented as of this encounter
--- OUTSIDE RECORDS SUMMARY | 2025-04-20 09:28 | XMS_ITS | Encounter Summary ---
Author Organization [facility] Address [address] [place] [address] Care Team Providers Care Supervisor Slate Splitting Name Role Phone Kwaku Guerra MD Primary Care Provider Encounter Details Date Type Department Care Team (Latest Contact Info) Description 06/14/2004 Outpatient [facility] Podiatry[facility] [place] [address] [place] [address] Octavio Samuels, DPM NO ADDRESS ON FILE Onychia of toe (Primary Dx) Social History Tobacco Use Types Packs/Day Years Used Date Smoking Tobacco: Never Assessed Comments Unknown Sex and Gender Information Value Date Recorded Sex Assigned at Not on file Legal Sex Female 5:00 AM PARENT PARTNER Gender Identity Not on file Sexual Orientation Not on file documented as of this encounter Plan of Treatment Not on file documented as of this encounter Visit Diagnoses Diagnosis Onychia of toe- Primary Onychia and paronychia of toe documented in this encounter Care Teams Supervisor Slate Splitting Relationship Specialty Start Date End Date Kwaku Guerra MD [address] [place] [address] PCP - General Family Practice 11/16/14 documented as of this encounter
--- OUTSIDE RECORDS SUMMARY | 2025-04-20 09:28 | XMS_ITS | Encounter Summary ---
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
--- OUTSIDE RECORDS SUMMARY | 2025-04-20 09:28 | XMS_ITS | Encounter Summary ---
Author Organization [facility] Address [address] [place] [address] Care Team Providers Care Portable Track Line Marker Name Role Phone Kwaku Guerra MD Primary Care Provider [phone] Encounter Details Date Type Department Care Team (Latest Contact Info) Description 06/14/2004 Outpatient Historical [facility] [id number] [facility] [address] [place] [address] Octavio Samuels, DPM NO ADDRESS ON FILE SWELLING OF LIMB (Primary Dx) Social History Tobacco Use Types Packs/Day Years Used Date Smoking Tobacco: Never Assessed Comments Unknown Sex and Gender Information Value Date Recorded Sex Assigned at Not on file Legal Sex Female 5:00 AM VULCANIZED FIBER UNIT OPERATOR Gender Identity Not on file Sexual Orientation Not on file documented as of this encounter Plan of Treatment Not on file documented as of this encounter Visit Diagnoses Diagnosis Swelling of limb- Primary documented in this encounter Care Teams Portable Track Line Marker Relationship Specialty Start Date End Date Kwaku Guerra MD [address] [place] [address] PCP - General Family Practice 11/16/14 documented as of this encounter
--- OUTSIDE RECORDS SUMMARY | 2025-04-20 09:28 | XMS_ITS | Encounter Summary ---
Author Organization [employer] [facility] Address [address] [place] [address] Care Team Providers Care Communications Clerk Name Role Phone Kwaku Guerra MD Primary Care Provider [phone] Encounter Details Date Type Department Care Team (Latest Contact Info) Description 07/02/2004 [facility] [place] [id number] [place] [address] Wellness, Program NO ADDRESS ON FILE DIABETES MELLITUS TYPE II-UNCOMPL (CMS/HCC) (Primary Dx) Social History Tobacco Use Types Packs/Day Years Used Date Smoking Tobacco: Never Assessed Comments Unknown Sex and Gender Information Value Date Recorded Sex Assigned at Not on file Legal Sex Female 5:00 AM INJECTION MAINTENANCE TECHNICIAN Gender Identity Not on file Sexual Orientation Not on file documented as of this encounter Plan of Treatment Not on file documented as of this encounter Visit Diagnoses Diagnosis Type II or unspecified type diabetes mellitus without mention of complication, not stated as uncontrolled- Primary documented in this encounter Care Teams Communications Clerk Relationship Specialty Start Date End Date Kwaku Guerra MD [address] [place] [address] PCP - General Family Practice 11/16/14 documented as of this encounter
--- OUTSIDE RECORDS SUMMARY | 2025-04-20 09:28 | XMS_ITS | Encounter Summary ---
Author Organization [facility] Address [address] [place] [address] Care Team Providers Care Breakfast Cook Name Role Phone Kwaku Guerra MD Primary Care Provider [phone] Encounter Details Date Type Department Care Team (Latest Contact Info) Description 07/30/[address] [facility] Medicine [place] [address] [place] [phone] Harriet Amado MD [address] [place] [phone] ACUTE FRONTAL SINUSITIS (Primary Dx); Other lymphedema Social History Tobacco Use Types Packs/Day Years Used Date Smoking Tobacco: Never Assessed Comments Unknown Sex and Gender Information Value Date Recorded Sex Assigned at Not on file Legal Sex Female 5:00 AM CRUSHER AND BINDER OPERATOR Gender Identity Not on file Sexual Orientation Not on file documented as of this encounter Plan of Treatment Not on file documented as of this encounter Visit Diagnoses Diagnosis Acute frontal sinusitis- Primary Other lymphedema Other noninfectious lymphedema documented in this encounter Care Teams Breakfast Cook Relationship Specialty Start Date End Date Kwaku Guerra MD [address] [place] [phone] PCP - General Family Practice 11/16/14 documented as of this encounter
--- OUTSIDE RECORDS SUMMARY | 2025-04-20 09:29 | XMS_ITS | Encounter Summary ---
Author Organization [facility] Address [address] [place] [address] Care Team Providers Care Aniline Press Worker Name Role Phone Kwaku Guerra MD Primary Care Provider [phone] Encounter Details Date Type Department Care Team (Latest Contact Info) Description 02/06/2006 Outpatient Historical [facility] Orthopedics- 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
--- OUTSIDE RECORDS SUMMARY | 2025-04-20 09:29 | XMS_ITS | Encounter Summary ---
Author Organization [facility] Address [address] [place] [address] Care Team Providers Care Steam Crane Operator Name Role Phone Kwaku Guerra MD Primary Care Provider [phone] Encounter Details Date Type Department Care Team (Latest Contact Info) Description 04/12/2004 Outpatient Historical [facility] Medicine [place] [address] [place] [phone] Harriet Amado MD [address] [place] [phone] CELLULITIS, TOE NOS (Primary Dx) Social History Tobacco Use Types Packs/Day Years Used Date Smoking Tobacco: Never Assessed Comments Unknown Sex and Gender Information Value Date Recorded Sex Assigned at Not on file Legal Sex Female 5:00 AM CHILD SUPPORT SPECIALIST Gender Identity Not on file Sexual Orientation Not on file documented as of this encounter Plan of Treatment Not on file documented as of this encounter Visit Diagnoses Diagnosis Cellulitis and abscess of toe, unspecified- Primary documented in this encounter Care Teams Steam Crane Operator Relationship Specialty Start Date End Date Kwaku Guerra MD [address] [phone] PCP - General Family Practice 11/16/14 documented as of this encounter
--- OUTSIDE RECORDS SUMMARY | 2025-04-20 09:29 | XMS_ITS | Encounter Summary ---
Author Organization [facility] Address [address] [place] [address] Care Team Providers Care Vinyl Installer Name Role Phone Kwaku Guerra MD Primary Care Provider [phone] Encounter Details Date Type Department Care Team (Latest Contact Info) Description 12/31/2005 Outpatient Historical [facility] Imaging Services [address] [place] [phone] Harriet Amado MD [address] [place] [phone] Chondromalacia (Primary Dx) Social History Tobacco Use Types Packs/Day Years Used Date Smoking Tobacco: Never Assessed Comments Unknown Sex and Gender Information Value Date Recorded Sex Assigned at Not on file Legal Sex Female 5:00 AM ROUNDSMAN Gender Identity Not on file Sexual Orientation Not on file documented as of this encounter Plan of Treatment Not on file documented as of this encounter Visit Diagnoses Diagnosis Chondromalacia- Primary documented in this encounter Care Teams Vinyl Installer Relationship Specialty Start Date End Date Kwaku Guerra MD [address] [place] [address] PCP - General Family Practice 11/16/14 documented as of this encounter
--- OUTSIDE RECORDS SUMMARY | 2025-04-20 09:29 | XMS_ITS | Encounter Summary ---
Author Organization [facility] Address [address] [place] [address] Care Team Providers Care System Administration Manager Name Role Phone Kwaku Guerra MD Primary Care Provider [phone] Encounter Details Date Type Department Care Team (Latest Contact Info) Description 05/02/2004 Outpatient Historical [facility] Medicine [place] [address] [place] [phone] Harriet Amado MD [address] [place] [phone] HYPOTHYROIDISM NOS (Primary Dx) Social History Tobacco Use Types Packs/Day Years Used Date Smoking Tobacco: Never Assessed Comments Unknown Sex and Gender Information Value Date Recorded Sex Assigned at Not on file Legal Sex Female 5:00 AM PIECER UP Gender Identity Not on file Sexual Orientation Not on file documented as of this encounter Plan of Treatment Not on file documented as of this encounter Visit Diagnoses Diagnosis Unspecified hypothyroidism- Primary documented in this encounter Care Teams System Administration Manager Relationship Specialty Start Date End Date Kwaku Guerra MD [address] [phone] PCP - General Family Practice 11/16/14 documented as of this encounter
--- OUTSIDE RECORDS SUMMARY | 2025-04-20 09:29 | XMS_ITS | Encounter Summary ---
Author Organization [facility] Address [address] [place] [address] Care Team Providers Care Nurse Ob Name Role Phone Kwaku Guerra MD Primary Care Provider [phone] Encounter Details Date Type Department Care Team (Latest Contact Info) Description 02/02/2006 Outpatient Historical [facility] Medicine [place] [address] [place] [phone] Harriet Amado MD [address] [place] [phone] Osteoarth NOS-L/Leg (Primary Dx) Social History Tobacco Use Types Packs/Day Years Used Date Smoking Tobacco: Never Assessed Comments Unknown Sex and Gender Information Value Date Recorded Sex Assigned at Not on file Legal Sex Female 5:00 AM FABRICATOR ARTIFICIAL BREAST Gender Identity Not on file Sexual Orientation Not on file documented as of this encounter Plan of Treatment Not on file documented as of this encounter Visit Diagnoses Diagnosis Osteoarthrosis, unspecified whether generalized or localized, lower leg- Primary documented in this encounter Care Teams Nurse Ob Relationship Specialty Start Date End Date Kwaku Guerra MD [address] [place] [phone] PCP - General Family Practice 11/16/14 documented as of this encounter
--- OUTSIDE RECORDS SUMMARY | 2025-04-20 09:29 | XMS_ITS | Encounter Summary ---
Author Organization [facility] Address [address] [place]unez: [place] [address] Care Team Providers Care Security System Sales Consultant Name Role Phone Kwaku Guerra MD Primary Care Provider [phone] Encounter Details Date Type Department Care Team (Latest Contact Info) Description 08/16/2000 Emergency Jose Enrique Bar DO NO ADDRESS ON FILE Social History Tobacco Use Types Packs/Day Years Used Date Smoking Tobacco: Never Assessed Comments Unknown Sex and Gender Information Value Date Recorded Sex Assigned at Not on file Legal Sex Female 5:00 AM DIRECTOR OF CONVENTION SERVICES Gender Identity Not on file Sexual Orientation Not on file documented as of this encounter Plan of Treatment Not on file documented as of this encounter Visit Diagnoses Not on filedocumented in this encounter Care Teams Security System Sales Consultant Relationship Specialty Start Date End Date Kwaku Guerra MD [address], [place] [address] PCP - General Family Practice 11/16/14 documented as of this encounter
--- OUTSIDE RECORDS SUMMARY | 2025-04-20 09:29 | XMS_ITS | Encounter Summary ---
Author Organization [facility] Address [address] [place] [address] Care Team Providers Care Snow Removal/Plowing Name Role Phone Kwaku Guerra MD Primary Care Provider Encounter Details Date Type Department Care Team (Latest Contact Info) Description 02/23/2004 Outpatient Historical [facility] Medicine [place] [address] [place] [phone] Harriet Amado MD [address] [place] [phone] CONTUSION OF BREAST (Primary Dx); HYPERLIPIDEMIA NEC/NOS; ALLERGY, UNSPECIFIED; OSTEOPOROSIS NOS; Vaccine for influenza Social History Tobacco Use Types Packs/Day Years Used Date Smoking Tobacco: Never Assessed Comments Unknown Sex and Gender Information Value Date Recorded Sex Assigned at Not on file Legal Sex Female 5:00 AM MAKE UP OPERATOR HELPER Gender Identity Not on file Sexual Orientation Not on file documented as of this encounter Plan of Treatment Not on file documented as of this encounter Visit Diagnoses Diagnosis Contusion of breast- Primary Other and unspecified hyperlipidemia Allergy, unspecified not elsewhere classified Osteoporosis, unspecified Vaccine for influenza Need for prophylactic vaccination and inoculation against influenza documented in this encounter Care Teams Snow Removal/Plowing Relationship Specialty Start Date End Date Kwaku Guerra MD [address] [phone] PCP - General Family Practice 11/16/14 documented as of this encounter
--- OUTSIDE RECORDS SUMMARY | 2025-04-20 09:29 | XMS_ITS | Encounter Summary ---
Author Organization [facility] Address [address] [place] [address] Care Team Providers Care Chocolate Packer Name Role Phone Kwaku Guerra MD Primary Care Provider Encounter Details Date Type Department Care Team (Latest Contact Info) Description 12/31/2005 Outpatient Historical [facility] [place] [address] [place] [address] Harriet Amado MD [address] [place] [phone] Unspecified Arthropathy, Lower Leg (Primary Dx) Social History Tobacco Use Types Packs/Day Years Used Date Smoking Tobacco: Never Assessed Comments Unknown Sex and Gender Information Value Date Recorded Sex Assigned at Not on file Legal Sex Female 5:00 AM SURVEY INTERVIEWER Gender Identity Not on file Sexual Orientation Not on file documented as of this encounter Plan of Treatment Not on file documented as of this encounter Visit Diagnoses Diagnosis Unspecified arthropathy, lower leg- Primary documented in this encounter Care Teams Chocolate Packer Relationship Specialty Start Date End Date Kwaku Guerra MD [address] [place] [address] PCP - General Family Practice 11/16/14 documented as of this encounter
--- OUTSIDE RECORDS SUMMARY | 2025-04-20 09:29 | XMS_ITS | Encounter Summary ---
Author Organization [facility] Address [address] [place] [address] Care Team Providers Care Cable Operator Name Role Phone Kwaku Guerra MD Primary Care Provider [phone] Encounter Details Date Type Department Care Team (Latest Contact Info) Description 06/06/[address] [facility] Imaging Services-[facility] [place] [address] [place] [phone] Octavio Samuels, DPM NO ADDRESS ON FILE Pain in limb (Primary Dx) Social History Tobacco Use Types Packs/Day Years Used Date Smoking Tobacco: Never Assessed Comments Unknown Sex and Gender Information Value Date Recorded Sex Assigned at Not on file Legal Sex Female 5:00 AM SOCK IRONER Gender Identity Not on file Sexual Orientation Not on file documented as of this encounter Plan of Treatment Not on file documented as of this encounter Visit Diagnoses Diagnosis Pain in limb- Primary Pain in soft tissues of limb documented in this encounter Care Teams Cable Operator Relationship Specialty Start Date End Date Kwaku Guerra MD [address] [place] [address] PCP - General Family Practice 11/16/14 documented as of this encounter
--- OUTSIDE RECORDS SUMMARY | 2025-04-20 09:29 | XMS_ITS | Encounter Summary ---
Author Organization [facility] Address [address] [place] [address] Care Team Providers Care Certified Surgical Assistant Name Role Phone Kwaku Guerra MD Primary Care Provider [phone] Encounter Details Date Type Department Care Team (Latest Contact Info) Description 02/01/2004 Outpatient Historical [facility] Medicine [place] [address] [place] [phone] Harriet Amado MD [address] [place] [address] SPRAIN SHOULDER/ARM NOS (Primary Dx); SHOULDER REGION DIS NEC Social History Tobacco Use Types Packs/Day Years Used Date Smoking Tobacco: Never Assessed Comments Unknown Sex and Gender Information Value Date Recorded Sex Assigned at Not on file Legal Sex Female 5:00 AM SHRIMP POND LABORER Gender Identity Not on file Sexual Orientation Not on file documented as of this encounter Plan of Treatment Not on file documented as of this encounter Visit Diagnoses Diagnosis Sprain and strain of unspecified site of shoulder and upper arm- Primary Other affections of shoulder region, not elsewhere classified documented in this encounter Care Teams Certified Surgical Assistant Relationship Specialty Start Date End Date Kwaku Guerra MD [address] [place] [phone] PCP - General Family Practice 11/16/14 documented as of this encounter
--- OUTSIDE RECORDS SUMMARY | 2025-04-20 09:29 | XMS_ITS | Encounter Summary ---
Author Organization [facility] Address [address] [place] [address] Care Team Providers Care Pilot Fuel Engineer Name Role Phone Kwaku Guerra MD Primary Care Provider [phone] Encounter Details Date Type Department Care Team (Latest Contact Info) Description 06/06/2004 Outpatient [facility] Podiatry[facility] [place] [address] [place] [address] Octavio Samuels, DPM NO ADDRESS ON FILE Onychia of toe (Primary Dx); INGROWING NAIL; Hallux valgus Social History Tobacco Use Types Packs/Day Years Used Date Smoking Tobacco: Never Assessed Comments Unknown Sex and Gender Information Value Date Recorded Sex Assigned at Not on file Legal Sex Female 5:00 AM CUSTOM STUDIO COORDINATOR Gender Identity Not on file Sexual Orientation Not on file documented as of this encounter Plan of Treatment Not on file documented as of this encounter Visit Diagnoses Diagnosis Onychia of toe- Primary Onychia and paronychia of toe Ingrowing nail Hallux valgus Hallux valgus (acquired) documented in this encounter Care Teams Pilot Fuel Engineer Relationship Specialty Start Date End Date Kwaku Guerra MD [address] [place] [address] PCP - General Family Practice 11/16/14 documented as of this encounter
--- OUTSIDE RECORDS SUMMARY | 2025-04-20 09:29 | XMS_ITS | Encounter Summary ---
Author Organization [facility] Address [address] [place] [address] Care Team Providers Care Travel Registered Nurse Nicu Name Role Phone Kwaku Guerra MD Primary Care Provider [phone] Encounter Details Date Type Department Care Team (Latest Contact Info) Description 10/21/2005 Outpatient Historical [facility] [address] [place] [phone] Gonzalo Montano, TEACHING AIDE [address] [place], [place] [address] Encounter for Long-Term (Current) Use of Other Medications (Primary Dx) Social History Tobacco Use Types Packs/Day Years Used Date Smoking Tobacco: Never Assessed Comments Unknown Sex and Gender Information Value Date Recorded Sex Assigned at Not on file 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
--- OUTSIDE RECORDS SUMMARY | 2025-04-20 09:29 | XMS_ITS | Encounter Summary ---
Author Organization [facility] Address [address] [place] [address] Care Team Providers Care Electrician Ship Name Role Phone Kwaku Guerra MD Primary Care Provider [phone] Encounter Details Date Type Department Care Team (Latest Contact Info) Description 11/20/2003 Outpatient Historical [facility] [place] [address] [place] [address] [phone] Harriet Amado MD [address] [place] [address] CELLULITIS OF LEG (Primary Dx); OSTEOARTHROS NOS-OTHER SITE Social History Tobacco Use Types Packs/Day Years Used Date Smoking Tobacco: Never Assessed Comments Unknown Sex and Gender Information Value Date Recorded Sex Assigned at Not on file 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 Sex Female 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
--- OUTSIDE RECORDS SUMMARY | 2025-04-20 09:29 | XMS_ITS | Encounter Summary ---
Author Organization [facility] Address [address] [place] [address] Care Team Providers Care General Supervisor Name Role Phone Kwaku Guerra MD Primary Care Provider [phone] Encounter Details Date Type Department Care Team (Latest Contact Info) Description 02/05/2004 Outpatient Historical [facility] [address] [place] [phone] Gonzalo Montano, PACKAGE COLLECTOR [address] [place] [address] BONE & CARTILAGE DIS NOS (Primary Dx) Social History Tobacco Use Types Packs/Day Years Used Date Smoking Tobacco: Never Assessed Comments Unknown Sex and Gender Information Value Date Recorded Sex Assigned at Not on file 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
--- OUTSIDE RECORDS SUMMARY | 2025-04-20 09:29 | XMS_ITS | Encounter Summary ---
Author Organization [facility] Address [address] [place] [address] Care Team Providers Care Reading Coach Name Role Phone Kwaku Guerra MD Primary Care Provider [phone] Encounter Details Date Type Department Care Team (Latest Contact Info) Description 12/29/2005 Outpatient Historical [facility] Medicine [place] [address] [place] [address] [phone] Harriet Amado MD [address] [place] [phone] Pain in Joint, Lower Leg (Primary Dx); Dysuria; Mixed Incontinence Urge and Stress (Male)(Female); Pure Hypercholesterolem Social History Tobacco Use Types Packs/Day Years Used Date Smoking Tobacco: Never Assessed Comments Unknown Sex and Gender Information Value Date Recorded Sex Assigned at Not on file 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
--- OUTSIDE RECORDS SUMMARY | 2025-04-20 09:29 | XMS_ITS | Encounter Summary ---
Author Organization [facility] Address [address] [place] [address] Care Team Providers Care Unstacker Name Role Phone Kwaku Guerra MD Primary Care Provider [phone] Encounter Details Date Type Department Care Team (Latest Contact Info) Description 12/17/2005 Outpatient Historical [facility] Medicine [place] [address] [place] [address] [phone] Shadia Silver MD [facility] [place] [address] Pain in Joint, Lower Leg (Primary Dx); Unspecified Myalgia and Myositis Social History Tobacco Use Types Packs/Day Years Used Date Smoking Tobacco: Never Assessed Comments Unknown Sex and Gender Information Value Date Recorded Sex Assigned at Not on file 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
--- OUTSIDE RECORDS SUMMARY | 2025-04-20 09:29 | XMS_ITS | Encounter Summary ---
Author Organization [facility] Address [address] [place] [address] Care Team Providers Care Core Composer Feeder Name Role Phone Kwaku Guerra MD Primary Care Provider Encounter Details Date Type Department Care Team (Latest Contact Info) Description 02/13/2006 Outpatient Historical [facility]- [address] [place] 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
--- OUTSIDE RECORDS SUMMARY | 2025-04-20 09:29 | XMS_ITS | Encounter Summary ---
Author Organization [facility] Address [address] [place] [address] Care Team Providers Care Notcher Name Role Phone Kwaku Guerra MD Primary Care Provider [phone] Encounter Details Date Type Department Care Team (Latest Contact Info) Description 05/28/2004 Outpatient Historical [facility] Medicine [place] [address] [place] [phone] Harriet Amado MD [address] [place] [address] [phone] CELLULITIS, TOE NOS (Primary Dx); BUNION Social History Tobacco Use Types Packs/Day Years Used Date Smoking Tobacco: Never Assessed Comments Unknown Sex and Gender Information Value Date Recorded Sex Assigned at Not on file 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
--- OUTSIDE RECORDS SUMMARY | 2025-04-20 09:29 | XMS_ITS | Encounter Summary ---
Author Organization [facility] Address [address] [place] [address] Care Team Providers Care Book Solicitor Name Role Phone Kwaku Guerra MD Primary Care Provider [phone] Encounter Details Date Type Department Care Team (Late Contact Info) Description 12/31/2005 Outpatient Historical [facility] [place] [address] 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
--- OUTSIDE RECORDS SUMMARY | 2025-04-20 09:29 | XMS_ITS | Encounter Summary ---
Author Organization [facility] Address [address] [place] [address] Care Team Providers Care Supervisor Concrete Pipe Plant Name Role Phone Kwaku Guerra MD Primary Care Provider [phone] Encounter Details Date Type Department Care Team (Latest Contact Info) Description 02/20/2006 Outpatient Historical [facility] Orthopedics- [address] [place] 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
--- OUTSIDE RECORDS SUMMARY | 2025-04-20 09:29 | XMS_ITS | Encounter Summary ---
Author Organization [facility] Address [address] [place] [address] Care Team Providers Care Logistics Operations Director Name Role Phone Kwaku Guerra MD Primary Care Provider [phone] Encounter Details Date Type Department Care Team (Latest Contact Info) Description 03/05/2004 Outpatient Historical [facility] Medicine [place] [address] [place] [address] [phone] Harriet Amado MD [address] [place] [address] [phone] HYPERLIPIDEMIA NEC/NOS (Primary Dx) Social History Tobacco Use Types Packs/Day Years Used Date Smoking Tobacco: Never Assessed Comments Unknown Sex and Gender Information Value Date Recorded Sex Assigned at Not on file 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
--- OUTSIDE RECORDS SUMMARY | 2025-04-20 09:30 | XMS_ITS | Encounter Summary ---
Author Organization [facility] Address [address] [place] [address] Care Team Providers Care Corrections Lieutenant Name Role Phone Kwaku Guerra MD Primary Care Provider [phone] Encounter Details Date Type Department Care Team (Latest Contact Info) Description 12/11/2005 Outpatient Historical [facility] Medicine [place] [address] [phone] Harriet Amado MD [address] [place] [phone] Unspecified Hypothyroidism (Primary Dx) Social History Tobacco Use Types Packs/Day Years Used Date Smoking Tobacco: Never Assessed Comments Unknown Sex and Gender Information Value Date Recorded Sex Assigned at Not on file 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
--- OUTSIDE RECORDS SUMMARY | 2025-04-20 09:31 | XMS_ITS | Encounter Summary ---
Author Organization [facility] Address [address] [place] [address] Care Team Providers Care Sequins Spooler Name Role Phone Kwaku Guerra MD Primary Care Provider [phone] Encounter Details Date Type Department Care Team (Late st Contact Info) Description 05/14/2007 Outpatient Historical [facility] Medicine [place] [address] [phone] Social History Tobacco Use Types Packs/Day Years Used Date Smoking Tobacco: Never Assessed Comments Unknown Sex and Gender Information Value Date Recorded Sex Assigned at Not on file Legal Sex Female 5:00 AM HOOKER UP Gender Identity Not on file Sexual Orientation Not on file documented as of this encounter Plan of Treatment Not on file documented as of this encounter Visit Diagnoses Not on filedocumented in this encounter Care Teams Sequins Spooler Relationship Specialty Start Date End Date Kwaku Guerra MD [address] [phone] PCP - General Family Practice 11/16/14 documented as of this encounter
--- OUTSIDE RECORDS SUMMARY | 2025-04-20 09:31 | XMS_ITS | Encounter Summary ---
Author Organization [facility] Address [address] [place] [address] Care Team Providers Care String Studies Director Name Role Phone Kwaku Guerra MD Primary Care Provider [phone] Encounter Details Date Type Department Care Team (Latest Contact Info) Description 03/31/2006 Outpatient Historical [facility] Medicine [place] [address] [place] [phone] Harriet Amado MD [address] [place] [address] [phone] Acute Bronchitis (Primary Dx); Acute Laryngitis, without Mention of Obstruction Social History Tobacco Use Types Packs/Day Years Used Date Smoking Tobacco: Never Assessed Comments Unknown Sex and Gender Information Value Date Recorded Sex Assigned at Not on file 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
--- OUTSIDE RECORDS SUMMARY | 2025-04-20 09:31 | XMS_ITS | Encounter Summary ---
Author Organization [email or web address] Address [address] [place] [address] Care Team Providers Care Chief Client Officer Name Role Phone Kwaku Guerra MD Primary Care Provider [phone] Encounter Details Date Type Department Care Team (Latest Contact Info) Description 07/07/2006 Outpatient Historical [facility] [address] [place] [address] 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
--- OUTSIDE RECORDS SUMMARY | 2025-04-20 09:31 | XMS_ITS | Encounter Summary ---
Author Organization [facility] Address [address] [place] [address] Care Team Providers Care Surg Rn Name Role Phone Kwaku Guerra MD Primary Care Provider [phone] Encounter Details Date Type Department Care Team (Latest Contact Info) Description 06/25/2006 Outpatient Historical [facility] Medicine [place] [address] [place] [phone] Harriet Amado MD [address] [place] [phone] Acute Frontal Sinusitis (Primary Dx); Unspecified Disorder of Skin and Subcutaneous Tissue Social History Tobacco Use Types Packs/Day Years Used Date Smoking Tobacco: Never Assessed Comments Unknown Sex and Gender Information Value Date Recorded Sex Assigned at Not on file 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
--- OUTSIDE RECORDS SUMMARY | 2025-04-20 09:31 | XMS_ITS | Encounter Summary ---
Author Organization [facility] Address [address] [place] [address] Care Team Providers Care Server Security Administrator Name Role Phone Kwaku Guerra MD Primary Care Provider [phone] Encounter Details Date Type Department Care Team (Late st Contact Info) Description 05/12/2007 Outpatient Historical [facility] [address] [place] [address] Neeraj Carrasco MD [address] [place] [address] Social History Tobacco Use Types Packs/Day Years Used Date Smoking Tobacco: Never Assessed Comments Unknown Sex and Gender Information Value Date Recorded Sex Assigned at Not on file 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
--- OUTSIDE RECORDS SUMMARY | 2025-04-20 09:31 | XMS_ITS | Encounter Summary ---
Author Organization [facility] Address [address] [place] [address] Care Team Providers Care Slot Floor Attendant Name Role Phone Kwaku Guerra MD Primary Care Provider [phone] Encounter Details Date Type Department Care Team (Late st Contact Info) Description 05/11/2007 Outpatient Historical [facility] Medicine [place] [address] [phone] Neeraj Carrasco MD [address] [phone] Social History Tobacco Use Types Packs/Day Years Used Date Smoking Tobacco: Never Assessed Comments Unknown Sex and Gender Information Value Date Recorded Sex Assigned at Not on file Legal Sex Female 5:00 AM VULNERABILITY ASSESSMENT ANALYST Gender Identity Not on file Sexual Orientation Not on file documented as of this encounter Plan of Treatment Not on file documented as of this encounter Visit Diagnoses Not on filedocumented in this encounter Care Teams Slot Floor Attendant Relationship Specialty Start Date End Date Kwaku Guerra MD [address] [place] [phone] PCP - General Family Practice 11/16/14 documented as of this encounter
--- OUTSIDE RECORDS SUMMARY | 2025-04-20 09:31 | XMS_ITS | Encounter Summary ---
Author Organization [facility] Address [address] [place] [address] Care Team Providers Care Jawbone Breaker Name Role Phone Kwaku Guerra MD Primary Care Provider [phone] Encounter Details Date Type Department Care Team (Latest Contact Info) Description 07/07/2006 Outpatient Historical [facility] Medicine [place] [address] [place] [phone] Harriet Amado MD [address] [place] [address] Unspecified Disorder of Skin and Subcutaneous Tissue (Primary Dx); Chronic Airway Obstruction, not Elsewhere Classified (CMS/HCC); Allergy, Unspecified not Elsewhere Classified Social History Tobacco Use Types Packs/Day Years Used Date Smoking Tobacco: Never Assessed Comments Unknown Sex and Gender Information Value Date Recorded Sex Assigned at Not on file 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 Sex Female 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 Gender Identity Not on file Sexual Orientation Not on file documented as of this encounter Plan of Treatment Not on file documented as of this encounter Visit Diagnoses Diagnosis Unspecified disorder of skin and subcutaneous tissue- Primary Chronic airway obstruction, not elsewhere classified (CMS/HCC) Chronic airway obstruction, not elsewhere classified Allergy, unspecified not elsewhere classified documented in this encounter Care Teams Jawbone Breaker Relationship Specialty Start Date End Date Kwaku Guerra MD [address] [phone] PCP - General Family Practice 11/16/14 documented as of this encounter
--- OUTSIDE RECORDS SUMMARY | 2025-04-20 09:31 | XMS_ITS | Encounter Summary ---
Author Organization [facility] Address [address] [place] [address] Care Team Providers Care Funnel Coater Name Role Phone Kwaku Guerra MD Primary Care Provider [phone] Encounter Details Date Type Department Care Team (Late st Contact Info) Description 04/06/2007 Outpatient Historical [facility] Medicine [place] [address] [phone] Neeraj Carrasco MD [address] [phone] Social History Tobacco Use Types Packs/Day Years Used Date Smoking Tobacco: Never Assessed Comments Unknown Sex and Gender Information Value Date Recorded Sex Assigned at Not on file Legal Sex Female 5:00 AM ADMINISTRATIVE LAW JUDGE Gender Identity Not on file Sexual Orientation Not on file documented as of this encounter Plan of Treatment Not on file documented as of this encounter Visit Diagnoses Not on filedocumented in this encounter Care Teams Funnel Coater Relationship Specialty Start Date End Date Kwaku Guerra MD [address] [place] [phone] PCP - General Family Practice 11/16/14 documented as of this encounter
--- OUTSIDE RECORDS SUMMARY | 2025-04-20 09:31 | XMS_ITS | Encounter Summary ---
Author Organization [facility] Address [address] [place] [address] Care Team Providers Care Director Of Volunteer Services Name Role Phone Kwaku Guerra MD Primary Care Provider [phone] Encounter Details Date Type Department Care Team (Latest Contact Info) Description 09/15/2006 Outpatient Historical [facility] Medicine [place] [address] [place] [address] [phone] Harriet Amado MD [address] [place] [address] [phone] Acute Frontal Sinusitis (Primary Dx) Social History Tobacco Use Types Packs/Day Years Used Date Smoking Tobacco: Never Assessed Comments Unknown Sex and Gender Information Value Date Recorded Sex Assigned at Not on file Legal Sex Female 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
--- OUTSIDE RECORDS SUMMARY | 2025-04-20 09:31 | XMS_ITS | Encounter Summary ---
Author Organization [facility] Address [address] [place] [address] Care Team Providers Care Tubing Drier Name Role Phone Kwaku Guerra MD Primary Care Provider [phone] Encounter Details Date Type Department Care Team (Latest Contact Info) Description 10/27/2005 Outpatient Historical [facility] Medicine [place] [address] [place] [address] [phone] Harriet Amado MD [address] [place] [address] [phone] Unspecified Hypothyroidism (Primary Dx); Other and Unspecified Hyperlipidemia; Other Malaise and Fatigue Social History Tobacco Use Types Packs/Day Years Used Date Smoking Tobacco: Never Assessed Comments Unknown Sex and Gender Information Value Date Recorded Sex Assigned at Not on file 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
--- OUTSIDE RECORDS SUMMARY | 2025-04-20 09:31 | XMS_ITS | Encounter Summary ---
Author Organization [facility] Address [address] [place] [address] Care Team Providers Care Primary Clinician Name Role Phone Kwaku Guerra MD Primary Care Provider [phone] Encounter Details Date Type Department Care Team (Latest Contact Info) Description 09/04/2006 Outpatient Historical [facility] Medicine [place] [address] [place] [address] [phone] Stephania Gray, [facility] [address] [place] [address] [phone] Dysthymic Disorder (Primary Dx) Social History Tobacco Use Types Packs/Day Years Used Date Smoking Tobacco: Never Assessed Comments Unknown Sex and Gender Information Value Date Recorded Sex Assigned at Not on file 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
--- OUTSIDE RECORDS SUMMARY | 2025-04-20 09:32 | XMS_ITS | Encounter Summary ---
Author Organization [facility] Address [address] [place] [address] Care Team Providers Care Admin Asst Name Role Phone Kwaku Guerra MD Primary Care Provider [phone] Encounter Details Date Type Department Care Team (Latest Contact Info) Description 03/02/2006 Outpatient Historical [facility] [address] [place] [address] [phone] Kwaku Guerra MD [address] [place] [address] Acute Upper Respiratory Infections of Unspecified Site (Primary Dx) Social History Tobacco Use Types Packs/Day Years Used Date Smoking Tobacco: Never Assessed Comments Unknown Sex and Gender Information Value Date Recorded Sex Assigned at Not on file 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
--- OUTSIDE RECORDS SUMMARY | 2025-04-20 09:32 | XMS_ITS | Encounter Summary ---
Author Organization [facility] Address [address] [place] [address] Care Team Providers Care Law Instructor Name Role Phone Kwaku Guerra MD Primary Care Provider Encounter Details Date Type Department Care Team (Latest Contact Info) Description 10/16/2005 Outpatient Historical [facility] [address] [place] [address] [phone] Gonzalo Montano, [facility] [address] [place], [place] [address] Other Malaise and Fatigue (Primary Dx); Other and Unspecified Hyperlipidemia; Acute Bronchitis Social History Tobacco Use Types Packs/Day Years Used Date Smoking Tobacco: Never Assessed Comments Unknown Sex and Gender Information Value Date Recorded Sex Assigned at Not on file Legal Sex Female 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
--- OUTSIDE RECORDS SUMMARY | 2025-04-20 09:32 | XMS_ITS | Encounter Summary ---
Author Organization [facility] Address [address] [place] [address] Care Team Providers Care Ward Clerk Name Role Phone Kwaku Guerra MD Primary Care Provider [phone] Encounter Details Date Type Department Care Team (Latest Contact Info) Description 03/03/[address] 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
--- OUTSIDE RECORDS SUMMARY | 2025-04-20 09:32 | XMS_ITS | Encounter Summary ---
Author Organization [facility] Address [address] [place] [address] Care Team Providers Care Farm Helper Name Role Phone Kwaku Guerra MD Primary Care Provider [phone] Encounter Details Date Type Department Care Team (Latest Contact Info) Description 08/05/2005 Outpatient Historical [facility] Rheumatology- [facility] [place] [address] [place] [phone] Vincent Amado MD NO ADDRESS ON FILE Generalized Osteoarthrosis, Involving Multiple Sites (Primary Dx) Social History Tobacco Use Types Packs/Day Years Used Date Smoking Tobacco: Never Assessed Comments Unknown Sex and Gender Information Value Date Recorded Sex Assigned at Not on file 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
--- OUTSIDE RECORDS SUMMARY | 2025-04-20 09:32 | XMS_ITS | Encounter Summary ---
Author Organization [facility] Address [address] [place] [address] Care Team Providers Care Escrow Agent Name Role Phone Kwaku Guerra MD Primary Care Provider [phone] Encounter Details Date Type Department Care Team (Latest Contact Info) Description 06/17/2005 Outpatient Historical [facility] [address] [place] [address] Harriet Amado MD [address] [place] [phone] BACKACHE NOS (Primary Dx) Social History Tobacco Use Types Packs/Day Years Used Date Smoking Tobacco: Never Assessed Comments Unknown Sex and Gender Information Value Date Recorded Sex Assigned at Not on file Legal Sex Female 5:00 AM SECOND CHEF Gender Identity Not on file Sexual Orientation Not on file documented as of this encounter Plan of Treatment Not on file documented as of this encounter Visit Diagnoses Diagnosis Backache, unspecified- Primary documented in this encounter Care Teams Escrow Agent Relationship Specialty Start Date End Date Kwaku Guerra MD [address] [place] [phone] PCP - General Family Practice 11/16/14 documented as of this encounter
--- OUTSIDE RECORDS SUMMARY | 2025-04-20 09:32 | XMS_ITS | Encounter Summary ---
Author Organization [facility] Address [address] [place] [address] Care Team Providers Care Card Tender Name Role Phone Kwaku Guerra MD Primary Care Provider [phone] Encounter Details Date Type Department Care Team (Latest Contact Info) Description 06/24/2005 Outpatient Historical [facility] Medicine [place] [address] [place] [address] [phone] Neeraj Carrasco MD [address] [place] [address] MYALGIA AND MYOSITIS NOS (Primary Dx) Social History Tobacco Use Types Packs/Day Years Used Date Smoking Tobacco: Never Assessed Comments Unknown Sex and Gender Information Value Date Recorded Sex Assigned at Not on file 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
--- OUTSIDE RECORDS SUMMARY | 2025-04-20 09:32 | XMS_ITS | Encounter Summary ---
Author Organization [facility] Address [address] [place] [address] Care Team Providers Care Bridal Gown Fitter Name Role Phone Kwaku Guerra MD Primary Care Provider [phone] Encounter Details Date Type Department Care Team (Latest Contact Info) Description 03/06/2006 Outpatient Historical [facility] Orthopedics- 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
--- OUTSIDE RECORDS SUMMARY | 2025-04-20 09:32 | XMS_ITS | Encounter Summary ---
Author Organization [facility] Address [address] [place] [address] Care Team Providers Care Dog Obedience Instructor Name Role Phone Kwaku Guerra MD Primary Care Provider [phone] Encounter Details Date Type Department Care Team (Latest Contact Info) Description 02/27/2006 Outpatient Historical [facility] Orthopedics- 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
--- OUTSIDE RECORDS SUMMARY | 2025-04-20 09:32 | XMS_ITS | Encounter Summary ---
Author Organization [facility] Address [address] [place] [address] Care Team Providers Care Law Researcher Name Role Phone Kwaku Guerra MD Primary Care Provider [phone] Encounter Details Date Type Department Care Team (Latest Contact Info) Description 01/28/2005 Outpatient Historical [facility] Medicine [place] [address] [place] [address] [phone] Harriet Amado MD [address] [place] [phone] CELLULITIS NOS (Primary Dx); NONSPECIF SKIN ERUPT NEC; Bladder hypertonicity Social History Tobacco Use Types Packs/Day Years Used Date Smoking Tobacco: Never Assessed Comments Unknown Sex and Gender Information Value Date Recorded Sex Assigned at Not on file Legal Sex Female 5:00 AM SHAREPOINT APPLICATION ARCHITECT Gender Identity Not on file Sexual Orientation Not on file documented as of this encounter Plan of Treatment Not on file documented as of this encounter Visit Diagnoses Diagnosis Cellulitis and abscess of unspecified site- Primary Rash and other nonspecific skin eruption Bladder hypertonicity Hypertonicity of bladder documented in this encounter Care Teams Law Researcher Relationship Specialty Start Date End Date Kwaku Guerra MD [address] [place] [address] [phone] PCP - General Family Practice 11/16/14 documented as of this encounter
--- OUTSIDE RECORDS SUMMARY | 2025-04-20 09:32 | XMS_ITS | Encounter Summary ---
Author Organization [facility] Address [address] [place] [address] Care Team Providers Care Retail Operations Specialist Name Role Phone Kwaku Guerra MD Primary Care Provider [phone] Encounter Details Date Type Department Care Team (Latest Contact Info) Description 02/25/2005 Outpatient Historical [facility] Medicine [place] [address] [place] [address] [phone] Harriet Amado MD [address] [place] [address] [phone] SCREENING FOR CONDITION NOS (Primary Dx) Social History Tobacco Use Types Packs/Day Years Used Date Smoking Tobacco: Never Assessed Comments Unknown Sex and Gender Information Value Date Recorded Sex Assigned at Not on file 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
--- OUTSIDE RECORDS SUMMARY | 2025-04-20 09:32 | XMS_ITS | Encounter Summary ---
Author Organization [facility] Address [address] [place] [address] Care Team Providers Care Transport Analyst Name Role Phone Kwaku Guerra MD Primary Care Provider [phone] Encounter Details Date Type Department Care Team (Latest Contact Info) Description 03/13/2005 Outpatient Historical [facility] Medicine [place] [address] [place] [address] [phone] Stephania Gray, [facility] [address] [place] [address] [phone] URIN TRACT INFECTION NOS (Primary Dx); URGE INCONTINENCE Social History Tobacco Use Types Packs/Day Years Used Date Smoking Tobacco: Never Assessed Comments Unknown Sex and Gender Information Value Date Recorded Sex Assigned at Not on file Legal Sex Female 5:00 AM AGENCY APPOINTMENTS SUPERVISOR Gender Identity Not on file Sexual Orientation Not on file documented as of this encounter Plan of Treatment Not on file documented as of this encounter Visit Diagnoses Diagnosis Urinary tract infection, site not specified- Primary Urge incontinence documented in this encounter Care Teams Transport Analyst Relationship Specialty Start Date End Date Kwaku Guerra MD [address] [place] [address] [phone] PCP - General Family Practice 11/16/14 documented as of this encounter
--- OUTSIDE RECORDS SUMMARY | 2025-04-20 09:33 | XMS_ITS | Encounter Summary ---
Author Organization [facility] Address [address] [place] [address] Care Team Providers Care E Commerce Solution Architect Name Role Phone Kwaku Guerra MD Primary Care Provider [phone] Encounter Details Date Type Department Care Team (Latest Contact Info) Description 07/08/2005 Outpatient Historical [facility] Imaging Services [address] [place] [phone] Neeraj Carrasco MD [address] [place] [address] Osteoarth NOS-L/Leg (Primary Dx) Social History Tobacco Use Types Packs/Day Years Used Date Smoking Tobacco: Never Assessed Comments Unknown Sex and Gender Information Value Date Recorded Sex Assigned at Not on file Legal Sex Female 5:00 AM SENIOR FACILITIES MANAGER Gender Identity Not on file Sexual Orientation Not on file documented as of this encounter Plan of Treatment Not on file documented as of this encounter Procedures Procedure Name Priority Date/Time Associated Diagnosis Comments XR KNEE 1 OR 2 VW LEFT Routine 07/08/2005 2:23 PM SENIOR FACILITIES MANAGER XR HIP 2 OR 3 VIEWS RT Routine 07/08/2005 2:23 PM SENIOR FACILITIES MANAGER documented in this encounter Results * XR HIP 2+ VW RIGHT (07/08/2005 2:23 PM SENIOR FACILITIES MANAGER) Anatomical Region Laterality Modality Lower Extremity Right Other 07/08/2005 2:23 PM SENIOR FACILITIES MANAGER Narrative 07/08/2005 2:23 PM SENIOR FACILITIES MANAGER 07/08/2005 RIGHT HIP: HISTORY: Pain. No comparisons. There is no evidence for fracture, dislocation, or other acute radiographic abnormality. No lytic or blastic lesions are noted. Mild degenerative change is present. IMPRESSION: Mild degenerative change. [facility] Dictated By: Beata Conway M.D. Electronically Signed By: Beata Conway M.D. Date Signed: 07/09/05 [facility] Procedure Note 03/23/2009 07/08/2005 RIGHT HIP: HISTORY: Pain. No comparisons. There is no evidence for fracture, dislocation, or other acuteradiographic abnormality. No lytic or blastic lesions are noted. Mild degenerative change is present. IMPRESSION: Mild degenerative change. [facility] Dictated By: Beata Conway M.D. Electronically Signed By: Beata Conway M.D. Date Signed: 07/09/05 [facility] Neeraj Carrasco MD DIAGNOSTIC IMAGING ORDERABLE S Final Result * XR KNEE 1 OR 2 VW LEFT (07/08/2005 2:23 PM SENIOR FACILITIES MANAGER) Anatomical Region Laterality Modality Lower Extremity Other 07/08/2005 2:23 PM SENIOR FACILITIES MANAGER Narrative 07/08/2005 2:23 PM SENIOR FACILITIES MANAGER 07-08-05 LEFT KNEE: HISTORY: Pain. There are [...] Moderate degenerative change involving the left knee. [facility] D: 07-08-05 1817 Dictated By: Beata Conway [...] Moderate degenerative change involving the left knee. [facility] D: 07-08-05 1817 Dictated By: Beata Conway M.D. Electronically Signed By: Beata Conway M.D. Date Signed: 07/09/05 [facility] Neeraj Carrasco MD DIAGNOSTIC IMAGING ORDERABLE S Final Result documented in this encounter Visit Diagnoses Diagnosis Osteoarthrosis, unspecified whether generalized or localized, lower leg- Primary documented in this encounter Care Teams E Commerce Solution Architect Relationship Specialty Start Date End Date Kwaku Guerra MD [address] [place] [address] PCP - General Family Practice 11/16/14 documented as of this encounter
--- OUTSIDE RECORDS SUMMARY | 2025-04-20 09:33 | XMS_ITS | Encounter Summary ---
Author Organization [facility] Address [address] [place] [address] Care Team Providers Care Event Coordinator Name Role Phone Kwaku Guerra MD Primary Care Provider [phone] Encounter Details Date Type Department Care Team (Latest Contact Info) Description 06/09/2005 Outpatient Historical [facility] Imaging Services [address] [place] [phone] Harriet Amado MD [address] [place] [address] [phone] CERVICALGIA (Primary Dx) Social History Tobacco Use Types Packs/Day Years Used Date Smoking Tobacco: Never Assessed Comments Unknown Sex and Gender Information Value Date Recorded Sex Assigned at Not on file 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
--- OUTSIDE RECORDS SUMMARY | 2025-04-20 09:33 | XMS_ITS | Encounter Summary ---
Author Organization [facility] Address [address] [place] [address] Care Team Providers Care Adventure Therapist Name Role Phone Kwaku Guerra MD Primary Care Provider [phone] Encounter Details Date Type Department Care Team (Latest Contact Info) Description 06/04/2005 Outpatient Historical [facility] [place] [facility] [place] [address] [place] [id number] Harriet Amado MD [address] [place] [phone] BACKACHE NOS (Primary Dx) Social History Tobacco Use Types Packs/Day Years Used Date Smoking Tobacco: Never Assessed Comments Unknown Sex and Gender Information Value Date Recorded Sex Assigned at Not on file 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
--- OUTSIDE RECORDS SUMMARY | 2025-04-20 09:35 | XMS_ITS | Encounter Summary ---
Author Organization [facility] Address [address] [place] [address] Care Team Providers Care Human Resources Clerk Name Role Phone Kwaku Guerra MD Primary Care Provider [phone] Encounter Details Date Type Department Care Team (Latest Contact Info) Description 05/16/2005 Outpatient Historical [facility] [place] [address] [place] [phone] Stephania Gray, WELD ENGINEER [address] [place] [phone] COUGH (Primary Dx) Social History Tobacco Use Types Packs/Day Years Used Date Smoking Tobacco: Never Assessed Comments Unknown Sex and Gender Information Value Date Recorded Sex Assigned at Not on file 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
--- OUTSIDE RECORDS SUMMARY | 2025-04-20 09:35 | XMS_ITS | Encounter Summary ---
Author Organization [facility] Address [address] [place] [address] Care Team Providers Care Health Services Director Name Role Phone Kwaku Guerra MD Primary Care Provider [phone] Encounter Details Date Type Department Care Team (Latest Contact Info) Description 06/02/2005 Outpatient Historical [facility] [address] [place] [address] [phone] Gonzalo Montano, MEDICAL DOCTOR [address] [place], [place] [phone] ACUTE FRONTAL SINUSITIS (Primary Dx); ACUTE BRONCHITIS; Pain in limb Social History Tobacco Use Types Packs/Day Years Used Date Smoking Tobacco: Never Assessed Comments Unknown Sex and Gender Information Value Date Recorded Sex Assigned at Not on file 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
--- OUTSIDE RECORDS SUMMARY | 2025-04-20 09:35 | XMS_ITS | Encounter Summary ---
Author Organization [facility] Address [address] [place] [address] Care Team Providers Care Tubing Oiler Name Role Phone Kwaku Guerra MD Primary Care Provider [phone] Encounter Details Date Type Department Care Team (Latest Contact Info) Description 04/07/2005 Outpatient Historical [facility] [place] [address] [place] [address] [phone] Neeraj Carrasco MD [address] [place] [phone] ACUTE PHARYNGITIS (Primary Dx); Dysfunct eustachian tube Social History Tobacco Use Types Packs/Day Years Used Date Smoking Tobacco: Never Assessed Comments Unknown Sex and Gender Information Value Date Recorded Sex Assigned at Not on file 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
--- OUTSIDE RECORDS SUMMARY | 2025-04-20 09:35 | XMS_ITS | Encounter Summary ---
Author Organization [facility] Address [address] [place] [address] Care Team Providers Care Master Yacht Name Role Phone Kwaku Guerra MD Primary Care Provider [phone] Encounter Details Date Type Department Care Team (Latest Contact Info) Description 03/19/2005 Outpatient Historical [facility] [place] [address] [place] [address] [phone] Stephania Gray, [facility] [address] [place] [phone] URIN TRACT INFECTION NOS (Primary Dx) Social History Tobacco Use Types Packs/Day Years Used Date Smoking Tobacco: Never Assessed Comments Unknown Sex and Gender Information Value Date Recorded Sex Assigned at Not on file 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
[2025-04-20 09:53] LABS: Hematocrit 44.2 % (36-47); Hemoglobin 14.70 g/dL (11.27-16.99); Mean Corpuscular HGB Conc 33.3 g/dL (30-55); Mean Corpuscular Hemoglobin 32.3 pg (27-33); Mean Corpuscular Volume 97.1 fl (85-98); Nucleated Red Blood Cells % 0 %; Platelet Count 244 10^3/cmm (157-399); Red Blood Count 4.55 10^6/uL (3.85-5.65); White Blood Count 6.52 10^3/uL (3.29-11.43)
[2025-04-20 10:02] VITALS: BP 124/81; PULSE 85; RESP 18; O2SAT 94
--- NOTE | 2025-04-20 10:19 | XR_ITS ---
WS: [id number] Portable AP upright chest, 04/20/2025 Clinical Data: dyspnea/cough Comparison: Portable chest, 04/14/2025 Findings: The patchy right lower lobe opacity has diminished slightly. No nodules, masses or effusions are seen. The heart is slightly enlarged. The diaphragms are flattened. The pulmonary vascularity is not increased. No pneumothorax is seen. The aortic arch shows calcification with mild tortuosity. There is osteoarthritis of both shoulders. Monitor leads are on the chest wall. XR/XR chest 1V portable [id number] Impression: 1. Partial clearing of right lower lobe opacity. 2. Cardiomegaly and atherosclerosis. 3. Hyperinflation.
[2025-04-20 10:25] LABS: Troponin(5th) Baseline 17 ng/L (0-10)
--- NOTE | 2025-04-20 10:29 | ED_ITS ---
HPI - SOB/Dyspnea 2 General: Chief Complaint: Shortness of Breath/Dyspnea Stated Complaint: SOB Time Seen by Provider: 04/20/25 09:41 History of Present Illness: HPI Narrative: 84-year-old female presents emergency ro om states she just generally feels unwell her left leg is swollen. She has a history of blood clots recently seen in the emergency room and treated for pneumonia she is on Xarelto. She is concerned that she may have a worsening of her cellulitis. She was noted when she first arrived to be in atrial fibrillation her rate is controlled. No fever sweats chills. Previous ER note reviewed. Associated symptoms: Deny abdominal pain, chest pain or fever(s) Related Data Home Medications ?Medication ?Instructions ?Recorded ?Confirmed cetirizine 10 mg capsule (Zyrtec) 10 mg PO DAILY PRN a llergies 03/01/22 04/20/25 rivaroxaban 15 mg tablet (Xarelto) 15 mg PO DAILY 02/0204/20/25 celecoxib 200 mg capsule 200 mg PO BID 04/20/2504/20 ezetimibe 10 mg tablet 10 mg PO DAILY 04/20/2504/03 hydrocodone 5 mg-acetaminophen 325 0.5 - 1 tab PO Q8H PRN pain 04/20/25 04/20/25 mg tablet methenamine hippurate 1 gram tablet 1 g PO BID 5 04/20/25 solifenacin 10 mg tablet 10 mg PO DAILY 04/20/2504/03 Previous Rx's ?Medication ?Instructions ?Recorded metoprolol succinate 25 mg 12.5 mg (1/2 x 25 mg) PO DA ARMEN #15 04/20/25 tablet,extended release 24 hr tabs (Toprol XL) Allergies Allergy/AdvReac Type Severity Reaction Status Date / Time pain medication Allergy ADR-Itching Uncoded 04/20/25 09:20 Review of Systems 2 Const: Reports: fatigue and malaise; Denies: fever(s) or chills Card: Denies: chest pain Resp: Reports: dyspnea GI: Denies: abdominal pain : Denies: dysuria, urinary frequency or urinary urgency Musc: Denies: neck pain or back pain Skin/Breast: Denies: rash PFSH ED 2 PFSH: Social History Smoking and tobacco/nicotine status: never used tobacco/nicotine Physical Exam 2 Const: ORIENTATION/CONSCIOUSNESS: Yes awake HENMT: COMMON NORMALS: normocephalic, atraumatic and hearing grossly normal bilaterally HEAD & SCALP: normocephalic and atraumatic Resp: COMMON NORMALS: normal respiratory effort, No retractions, No use of accessory muscles and clear to auscultation bilaterally AUSCULTATION: clear to auscultation bilaterally Cardio: COMMON NORMALS: regular rate and No murmurs present (Cardio) RATE: regular rate RHYTHM: abnormal rhythm irregularly irregular GI: COMMON NORMALS: Soft to palpation and No hepatosplenomegaly present A USCULTATION: Yes normoactive bowel sounds PALPATION: Yes Soft to palpation, No Tenderness to palpation present (GI), No Guarding due to palpation present (GI) and Yes No hepatosplenomegaly present Extremity: COMMON NORMALS: normal to inspection, capillary refill normal, no clubbing, cyanosis or edema, no calf tenderness and no pedal edema Skin: COMMON NORMALS: no rashes or lesions noted GENERAL SKIN EXAM: no rashes or lesions noted Course 2 Vital Signs: Vital signs: Vital Signs Temperature 97.7 F 04/20/25 09:10 Pulse Rate 83 04/20/25 13:01 Respiratory Rate 18 04/20/25 13:01 Blood Pressure 124/88 04/20/25 13:01 Pulse Oximetry 96 04/20/25 13:01 Oxygen Delivery Me thod Room Air 04/20/25 13:01 MDM - SOB/Dyspnea Medical Decision Making Medical decision making Social determinants: Age needs assistance with getting access to healthcare I reviewed the patient's medical record. I reviewed the patient's current home meds. Alternate historians: Family Differential diagnosis:Congestive heart failure, pneumonia, atrial fibrillation Lab Review: White count normal. CMP unremarkable troponins did not show significant deltaBNP 744 slightly increased TSH 6.62 urine negative for signs of infection there is a few red blood cells but likely due to catheterization. Imaging: Chest x-ray is improvement of previous pneumonia no worsening congestive heart failure Assessment of risk Level of risk: Low Hospitalization considerations: No indication for hospitalization at this time Reexamination: Unchanged Assessment and plan: No A-fib with AVR does not have worsening pneumonia or decompensated congestive heart failure oxygen saturations normal on room air. Complete antibiotics previously prescribed. She is currently on anticoagulation. She has some mild swelling of the leg but no tenderness do not believe she has a DVT. She is already on anticoagulation for her atrial fibrillation. Follow-up with your primary care doctor regarding her abnormal TSH. Lab Data 04/20/25 09:48 04/20/25 09:48 Labs/Radiology: Radiology Impressions Chest X-Ray 04/20/25 10:19 Impression: 1. Partial clearing of right lower lobe opacity. 2. Cardiomegaly and atherosclerosis. 3. Hyperinflation. Laboratory Results WBC 6.52 10^3/uL (3.29-11.43) 04/20/25 09:48 RBC 4.55 10^6/uL (3.85-5.65) 04/20/25 09:48 Hgb 14.70 g/dL (11.27-16.99) 04/20/25 09:48 Hct 44.2 % (36-47) 04/20/25 09:48 MCV 97.1 fl (85-98) 04/20/25 09:48 MCH 32.3 pg (27-33) 04/20/25 09:48 MCHC 33.3 g/dL (30-55) 04/20/25 09:48 RDW 13.1 % (12.1-15.1) 04/20/25 09:48 Plt Count 244 10^3/cmm (157-399) 04/20/25 09:48 MPV 10.1 fL (7.4-10.4) 04/20/25 09:48 Neut % (Auto) 33.1 % 04/20/25 09:48 Lymph % (Auto) 35.0 % 04/20/25 09:48 [place] % (Auto) 8.3 % 04/20/25 09:48 Eos % (Auto) 19.3 % 04/20/25 09:48 Baso % (Auto) 1.7 % 04/20/25 09:48 Neut # (Auto) 2.16 10^3/uL (1.8-7.7) 04/20/25 09:48 Lymph # (Auto) 2.3 10^3/uL (0.8-4.8) 04/20/25 09:48 [place] # (Auto) 0.5 10^3/uL (0.2-0.9) 04/20/25 09:48 Eos # (Auto) 1.3 10^3/uL (0.0-0.8) H 04/20/25 09:48 Baso # (Auto) 0.1 10^3/uL (0.0-0.1) 04/20/25 09:48 Nucleated RBC % (auto) 0 % 04/20/25 09:48 Nucleated RBCs # 0.0 /100WBC 04/20/25 09:48 Sodium 143 mmol/L (136-145) 04/20/25 09:48 Potassium 3.8 mmol/L (3.5-5.1) 04/20/25 09:48 Chloride 109 mmol/L (98-107) H 04/20/25 09:48 Carbon Dioxide 24 mmol/L (22-29) 04/20/25 09:48 Anion Gap 13.8 (5-19) 04/20/25 09:48 BUN 15 mg/dL (8-23) 04/20/25 09:48 Creatinine 0.6 mg/dL (0.5-0.9) 04/20/25 09:48 GFR Calculation Not Reportable 04/20/25 09:48 Glucose 94 mg/dL (65-115) 04/20/25 09:48 Calculated Osmolality 297 mOsm/kg (285-295) H 04/20/25 09:48 Calcium 8.9 mg/dL (8.5-10.5) 04/20/25 09:48 Total Bilirubin 1.0 mg/dL (0.15-1.2) 04/20/25 09:48 AST 19 U/L (0-32) 04/20/25 09:48 ALT 14 U/L (0-33) 04/20/25 09:48 Alkaline Phosphatase 78 U/L (35-105) 04/20/25 09:48 Troponin T Baseline 17 ng/L (0-10) H 04/20/25 09:48 Troponin T 60 Minute 18.76 ng/L (0-10) H 04/20/25 10:40 Delta Troponin T 1.76 ABS# (0-10) 04/20/25 10:40 NT-Pro-B Natriuret Pep 744 pg/mL (0-450) H 04/20/25 09:48 Total Protein 6.0 g/dL (6.6-8.7) L 04/20/25 09:48 Albumin 3.5 g/dL (3.5-5.2) 04/20/25 09:48 Globulin 2.5 g/dL (1.3-4.6) 04/20/25 09:48 TSH 6.62 uIU/mL (0.27-4.20) H 04/20/25 09:48 Urine Color Dark yellow (Yellow) A 04/20/25 10:23 Urine Appearance Clear (CLEAR) 04/20/25 10:23 Urine pH 6.5 (5-7) 04/20/25 10:23 Ur Specific [place] 1.022 (1.005-1.030) 04/20/25 10:23 Urine Protein Trace (Negative) A 04/20/25 10:23 Urine Glucose (UA) Negative (Normal) 04/20/25 10:23 Urine Ketones Trace (Negative) 04/20/25 10:23 Urine Blood Negative (Negative) 04/20/25 10:23 Urine Nitrate Negative (Negative) 04/20/25 10:23 Urine Bilirubin Negative (Negative) 04/20/25 10:23 Urine Urobilinogen 1.0 mg/dL (Negative) 04/20/25 10:23 Ur Leukocyte Esterase Negative (Negative) 04/20/25 10:23 Urine RBC 3-5 /hpf (0-2) 04/20/25 10:23 Urine WBC 0-5 /hpf (0-5) 04/20/25 10:23 Ur Squamous Epith Cells 6-10 /hpf (0-5) 04/20/25 10:23 Amorphous Sediment Not Reportable 04/20/25 10:23 Urine Bacteria None seen /hpf (NONE) 04/20/25 10:23 Hyaline Casts 1.21 /lpf 04/20/25 10:23 All radiology interpretation(s) finalized by discharge EKG Data EKG 1: I personally reviewed and interpreted this EKG as follows: Interpretation: EKG 04/20/2025 8:14 AM A-fib rate of 107 QTc [address] changes. No acute ST elevation. Compared to EKG 04/14/2025 no significant changes noted. EKG 2: Interpretation: EKG 04/20/2025 1047 atrial fibrillation rate of [address] changes noted previously with higher heart rate no longer present compared to EKG done earlier today. No acute ST elevations noted. Discharge Plan Discharge Patient Disposition: Home Clinical Impression: Atrial fibrillation, Chronic anticoagulation, Elevated TSH Condition: Stable Prescriptions: New metoprolol succinate [Toprol XL] 25 mg tablet extended release 24 hr 12.5 mg PO DAILY Qty: 15 0RF No Action Zyrtec 10 mg capsule 10 mg PO DAILY PRN (Reason: allergies) Xarelto 15 mg tablet 15 mg PO DAILY Rx Instructions: must administer with evening meal celecoxib 200 mg capsule 200 mg PO BID methenamine hippurate 1 gram tablet 1 g PO BID ezetimibe 10 mg tablet 10 mg PO DAILY solifenacin 10 mg tablet 10 mg PO DAILY hydrocodone-acetaminophen 5-325 mg tablet 0.5 - 1 tab PO Q8H PRN (Reason: pain) Discharge Orders: Discharge ED (Routine); Ordered 04/20/25 Ordered By: Eliseo Porras Referrals: Kwaku Guerar [Primary Care Provider, Family Practice] Discharge Diet: Usual diet Discharge Activity: Increase activity as tolerated Patient Instructions: A-fib (Atrial Fibrillation) (ED), Opioid Safety, Pain Management, Patient Portal & Lianet Instructions Activity Restrictions/Additional Instructions: Thank you for choosing [facility] for your healthcare needs today. It is very important that you follow up as instructed or that you return to the Emergency Department should you have concerns or if your condition changes or worsens in any way. Emergency department visits are focused on emergent conditions, in some cases you may require further evaluation on an outpatient basis. You are seen emergency room with complaints of generally not feeling well. You were noted to be atrial fibrillation his rate is well-controlled. You already on anticoagulation just continually current medications add metoprolol half a tablet once a day and follow-up with your doctor or your general pediatrician within the next week. Chest x-ray was improving and the pneumonia seen previously has begun to resolve (Please note that included in your discharge packet is information concerning opioid safety and pain management. This information is given to all patients were discharged from the ER regardless of their discharge diagnosis or the medicines they usually take or are prescribed.) Print Language: [place] Coding Level of Care Code ED Patient Care Manager for Abhinav Muniz
--- NOTE | 2025-04-20 10:41 | ECG_ITS ---
[facility] Test Date: 2025-04-20 Pat Name: Lori Salinas Department: Room: Gender: Female Outcomes Manager: : 1940 Requested By: Eliseo Kim Order Number: [id number] Reading MD: Measurements Intervals [place] Rate: 82 P: 0 [place]: 0 QRS: 75 QRSD: 94 T: 69 QT: 386 QTc: 451 Interpretive Statements ATRIAL FIBRILLATION ABNORMAL RHYTHM ECG [email or web address]
[2025-04-20 10:56] LABS: Alanine Aminotransferase 14 U/L (0-33); Albumin Level 3.5 g/dL (3.5-5.2); Alkaline Phosphatase 78 U/L (35-105); Anion Gap 13.8 (5-19); Aspartate Amino Transferase 19 U/L (0-32); Blood Urea Nitrogen 15 mg/dL (8-23); Calcium 8.9 mg/dL (8.5-10.5); Carbon Dioxide 24 mmol/L (22-29); Chloride 109 mmol/L (98-107); Globulin 2.5 g/dL (1.3-4.6); Glucose 94 mg/dL (65-115); NT Pro B Type Natriuretic Pept 744 pg/mL (0-450); Osmolality Calculated 297 mOsm/kg (285-295); Potassium 3.8 mmol/L (3.5-5.1); Sodium 143 mmol/L (136-145); Thyroid Stimulating Hormone 6.62 uIU/mL (0.27-4.20); Total Protein 6.0 g/dL (6.6-8.7)
[2025-04-20 11:23] VITALS: BP 126/86; PULSE 81; RESP 16; O2SAT 98
[2025-04-20 11:42] LABS: Add Urine Microscopic? YES; Glucose Urine UA Negative (Normal); Nitrate Urine Negative (Negative); Specific Gravity, Urine 1.022 (1.005-1.030)
[2025-04-20 13:01] VITALS: BP 124/88; PULSE 83; RESP 18; O2SAT 96
== END 2025-04-20 13:07 | disposition home or self-care (01) ==
PROVIDERS: Emergency Provider Family Medicine; PCP Family Medicine
DX: I48.91 Unspecified atrial fibrillation (principal); Z79.01 Long term (current) use of anticoagulants; R94.6 Abnormal results of thyroid function studies
CPT/HCPCS: 36415; 71045; 80053; 81001; 83880; 84443; 84484; 85025; 93005; 99285